=== PATIENT | male | born 1940 | race Caucasian/White ===

== ENCOUNTER 2016-08-04 20:17 | Emergency (ER) | payer MEDICARE, BC ==
[2016-08-04] MEDS ORDERED: HYDROmorphone 1 MG/ML Syringe IM ONE (21:02)
--- NOTE | 2016-08-04 23:09 | EDM.PDOC ---
ED HPI GENERAL MEDICAL PROBLEM - General Chief Complaint: Back Pain or Injury Stated Complaint: BACK PAIN Time Seen by Provider: 08/04/16 20:54 Source of Information: Reports: Patient History Limitations: Reports: No Limitations - History of Present Illness INITIAL COMMENTS - FREE TEXT/NARRATIVE: History of present illness: [68-year-old male presenting with low back pain with pain radiating down the left leg. He has been getting therapy for this but has not been helping. Pain is severe enough that he presents to the ER. The loss of bowel or bladder function. He's had right knee surgery and is very happy with that result. No other complaints.] Review of systems: As per history of present illness and below otherwise all systems reviewed and negative. Past medical history: As per history of present illness and as reviewed below otherwise noncontributory. Surgical history: As per history of present illness and as reviewed below otherwise noncontributory. Social history: No reported history of drug or alcohol abuse. Family history: As per history of present illness and as reviewed below otherwise noncontributory. Physical exam: HEENT: Atraumatic, normocephalic, Lungs: Clear to auscultation, Heart: S1S2, regular, Abdomen: Soft, nondistended, nontender. Pelvis: Stable nontender. Genitourinary: Deferred. Rectal: Deferred. Back: Diffuse active pain in the low lumbar area on palpation Extremities: Atraumatic, negative for cords or calf pain. Neurovascular unremarkable. Neuro: Awake, alert, oriented. Exam nonfocal. 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 left lower back Pain Score (Numeric/FACES): 10 - Related Data Allergies Allergy/AdvReac Type Severity Reaction Status Date / Time cat dander Allergy Shortness Verified 08/04/16 20:38 of Breath dog dander Allergy Shortness Verified 08/04/16 20:38 of Breath house dust Allergy Wheezing Verified 08/04/16 20:38 mold Allergy Wheezing Verified 08/04/16 20:38 Opzpuzy-Qqy-Acd Reductase Allergy Fatigue Verified 08/04/16 20:38 Inhibitor mushroom spores Allergy Wheezing Uncoded 08/04/16 20:38 Home Meds: Home Meds Docosahexanoic Acid [DHA] 500 mg PO BID 11/13/13 [History] Insulin Aspart [NovoLOG] 0 unit SQ TIDAC PRN 11/13/13 [History] Lecithin, Soy [Lecithin] 1,200 mg PO BID 11/13/13 [History] Levothyroxine Sodium [Synthroid] 75 mcg PO DAILY 06/12/14 [History] Lantus 35 units SQ DAILY 10/12/14 [History] Lisinopril 10 mg PO DAILY 10/12/14 [History] Proair Hfa 2 puff INH Q4H PRN 10/12/14 [History] Past Medical History HEENT History: Reports: Hard of Hearing, Impaired Vision, Other (See Below) Other HEENT History: strabismus Cardiovascular History: Reports: Aneurysm, High Cholesterol, Hypertension Other Cardiovascular History: Abnormality of thoracic aorta aortic insufficienty Respiratory History: Reports: Asthma, COPD Gastrointestinal History: Reports: Other (See Below) Other Gastrointestinal History: Cholitis Genitourinary History: Reports: Other (See Below) Other Genitourinary History: urinary frequency Musculoskeletal History: Reports: Osteoarthritis, Other (See Below) Other Musculoskeletal History: spinal stenosis Lumbar polyneuropathy Neurological History: Reports: None Psychiatric History: Reports: None Endocrine/Metabolic History: Reports: Diabetes, Type II, Hyperthyroidism Hematologic History: Reports: None Immunologic History: Reports: None Oncologic (Cancer) History: Reports: Squamous Cell Carcinoma, Other (See Below) Other Oncologic History: Left hand Dermatologic History: Reports: None - Infectious Disease History Infectious Disease History: Reports: Chicken Pox, Measles, Mumps, Rubella, Shingles - Past Surgical History Head Surgeries/Procedures: Reports: None HEENT Surgical History: Reports: Tonsillectomy Respiratory Surgical History: Reports: None GI Surgical History: Reports: Colonoscopy Male Surgical History: Reports: None Neurological Surgical History: Reports: None Musculoskeletal Surgical History: Reports: Arthroscopic Knee, Other (See Below) Oncologic Surgical History: Reports: None Dermatological Surgical History: Reports: None Social & Family History - Family History Family Medical History: Noncontributory - Tobacco Use Smoking Status *Q: Former Smoker Years of Tobacco use: 7 Packs/Tins Daily: 1 Used Tobacco, but Quit: Yes Month Tobacco Last Used: 1962 Tobacco Use Comment: Former smoker Second Hand Smoke Exposure: No - Caffeine Use Caffeine Use: Reports: Coffee - Alcohol Use Days Per Week of Alcohol Use: 5 Number of Drinks Per Day: 1 Total Drinks Per Week: 5 - Recreational Drug Use Recreational Drug Use: No ED ROS GENERAL - Review of Systems Review Of Systems: ROS reveals no pertinent complaints other than HPI. ED EXAM,LOWER BACK PAIN/INJURY - Physical Exam Exam: See Below Course - Vital Signs Last Recorded V/S: Last Vital Signs Temp 36.2 C 08/04/16 20:34 Pulse 66 08/04/16 20:34 Resp 16 08/04/16 20:34 BP 159/56 H 08/04/16 20:34 Pulse Ox 97 08/04/16 20:34 - Orders/Labs/Meds Orders: Active Orders 24 hr Category Date Time Status Lumbar Spine 2 or 3V [CR] Stat Exams 08/04/16 21:01 Taken Lumbar Spine wo Cont [CT] Stat Exams 08/04/16 21:57 Taken Meds: Medications Discontinued Medications Generic Name Dose Route Start Last Admin Trade Name Freq PRN Reason Stop Dose Admin Hydromorphone HCl 0.5 mg 08/04/16 21:02 08/04/16 21:13 Dilaudid IM 08/04/16 21:03 0.5 mg ONETIME ONE Administration Departure - Departure Time of Disposition: 23:07 Disposition: Home, Self-Care 01 Condition: Good Clinical Impression: Low back pain potentially associated with radiculopathy - Discharge Information Forms: ED Department Discharge Additional Instructions: Please follow-up with your primary care doctor in more than likely he will order an MRI to further define her disease process and determine whether or not she would benefit from surgery - My Orders Last 24 Hours: My Active Orders 08/04/16 21:01 Lumbar Spine 2 or 3V [CR] Stat 08/04/16 21:57 Lumbar Spine wo Cont [CT] Stat - Assessment/Plan Last 24 Hours: My Active Orders 08/04/16 21:01 Lumbar Spine 2 or 3V [CR] Stat 08/04/16 21:57 Lumbar Spine wo Cont [CT] Stat
[2016-08-04 23:20] VITALS: BP 160/89
--- NOTE | 2016-08-05 08:56 | CR ---
Lumbar Spine 2 or 3V HISTORY: Low back pain, left lumbar area FINDINGS: Vertebral body alignment is satisfactory. No compression fractures identified. Mild narrow ing of the intervertebral disc space with moderate anterolateral osteophytes is seen at L1-2. There is prominent narrowing of the disc with moderate anterolateral osteophytes at L4-5. Anterior osteoph ytes are also seen at L2-3 and L3-4. There is partial fusion of the vertebral bodies at these 2 leve ls. Scattered facet arthropathy is present. Spinous processes, posterior elements, and pedicles appe ar otherwise intact and in satisfactory alignment. There is partial sacralization of L5 on the left. IMPRESSION: Degenerative and hypertrophic changes lumbar spine. Degenerative changes are most promin ent at L4-5. There is partial fusion of the vertebral bodies at L2-3 and L3-4. No acute abnormality identified. Atherosclerotic aorta is noted.
== END 2016-08-04 23:17 | disposition home or self-care (01) ==
LOC: JP.ED 20:17
DX: M47.26 Other spondylosis with radiculopathy, lumbar region (principal); M54.42 Lumbago with sciatica, left side; E11.9 Type 2 diabetes mellitus without complications; I10 Essential (primary) hypertension; J45.909 Unspecified asthma, uncomplicated; J44.9 Chronic obstructive pulmonary disease, unspecified; M19.90 Unspecified osteoarthritis, unspecified site; E78.00 Pure hypercholesterolemia, unspecified; E05.90 Thyrotoxicosis, unspecified without thyrotoxic crisis or storm; Z85.89 Personal history of malignant neoplasm of other organs and systems; Z79.4 Long term (current) use of insulin; Z79.899 Other long term (current) drug therapy; Z91.09 Other allergy status, other than to drugs and biological substances; Z98.890 Other specified postprocedural states
CPT/HCPCS: 72100; 72131; 96372; 99284; J1170; 99283

== ENCOUNTER 2017-02-18 12:43 | Emergency (ER) | payer MEDICARE, BC ==
[2017-02-18] MEDS ORDERED: Aspirin 81 MG Tab.Chew PO ONE (13:26)
--- NOTE | 2017-02-18 13:31 | EDM.PDOC ---
ED HPI GENERAL MEDICAL PROBLEM - General Chief Complaint: Chest Pain Stated Complaint: CHEST PAIN SHORTNESS OF BREATH Time Seen by Provider: 02/18/17 13:15 Source of Information: Reports: Patient, Family, Old Records, RN Notes Reviewed History Limitations: Reports: No Limitations - History of Present Illness INITIAL COMMENTS - FREE TEXT/NARRATIVE: 77-year-old gentleman presents to the emergency department today with complaint of chest pressure, he has a known history of chronic obstructive pulmonary disease as well as diabetes mellitus type 2 was walking around earlier today approximate 2 hours prior at which time he developed some chest pressure rates it may be 6 out of 10 he had exercised earlier in the day walk a mile and a half with no difficulty it seems like the chest pressure developed after exercise. He reported to the emergency department for further evaluation at this time he is chest pain-free, shortness of breath has resolved, no nausea no diaphoresis Left Chest Pain Score (Numeric/FACES): 5 - Related Data Allergies Allergy/AdvReac Type Severity Reaction Status Date / Time cat dander Allergy Shortness Verified 02/18/17 12:57 of Breath dog dander Allergy Shortness Verified 02/18/17 12:57 of Breath house dust Allergy Wheezing Verified 02/18/17 12:57 mold Allergy Wheezing Verified 02/18/17 12:57 Gpinxgp-Auz-Irs Reductase Allergy Fatigue Verified 02/18/17 12:57 Inhibitor mushroom spores Allergy Wheezing Uncoded 08/04/16 20:38 Home Meds: Home Meds Albuterol Sulfate [Ventolin Hfa] 2 puff INH Q4H PRN 08/12/16 [History] Blood-Glucose Meter [Onetouch Ultramini] 1 strip SQ ASDIRECTED 08/12/16 [History ] Docosahexanoic Acid/EPA [Fish Oil Concentrate Softgel] 500 mg PO BID 08/12/16 [ History] Insulin Aspart [NovoLOG] 1 units SQ TID 08/12/16 [History] Insulin Glarg,Human.Rec.Analog [Lantus Solostar] 25 units SQ DAILY 08/12/16 [ History] Ketorolac [Toradol] 10 mg PO Q6H PRN 08/12/16 [History] Lecithin, Soy [Lecithin] 1 tab PO BID 08/12/16 [History] Levothyroxine [Sythroid] 100 mcg PO DAILY 08/12/16 [History] Past Medical History HEENT History: Reports: Hard of Hearing, Impaired Vision, Other (See Below) Other HEENT History: strabismus Cardiovascular History: Reports: Aneurysm, High Cholesterol, Hypertension Other Cardiovascular History: Abnormality of thoracic aorta aortic insufficienty Respiratory History: Reports: Asthma, COPD Gastrointestinal History: Reports: Other (See Below) Other Gastrointestinal History: Cholitis Genitourinary History: Reports: Other (See Below) Other Genitourinary History: urinary frequency Musculoskeletal History: Reports: Osteoarthritis, Other (See Below) Other Musculoskeletal History: spinal stenosis Lumbar polyneuropathy Endocrine/Metabolic History: Reports: Diabetes, Type II Oncologic (Cancer) History: Reports: Squamous Cell Carcinoma, Other (See Below) Other Oncologic History: Left hand - Infectious Disease History Infectious Disease History: Reports: Chicken Pox, Measles, Mumps, Rubella, Shingles - Past Surgical History HEENT Surgical History: Reports: Tonsillectomy GI Surgical History: Reports: Colonoscopy Musculoskeletal Surgical History: Reports: Arthroscopic Knee Social & Family History - Family History Family Medical History: Noncontributory - Tobacco Use Smoking Status *Q: Never Smoker Years of Tobacco use: 7 Packs/Tins Daily: 1 Used Tobacco, but Quit: Yes Month Tobacco Last Used: 1962 Second Hand Smoke Exposure: No - Caffeine Use Caffeine Use: Reports: Coffee - Alcohol Use Days Per Week of Alcohol Use: 7 Number of Drinks Per Day: 1 Total Drinks Per Week: 7 - Recreational Drug Use Recreational Drug Use: No ED ROS GENERAL - Review of Systems Review Of Systems: See Below Constitutional: Reports: No Symptoms Respiratory: Reports: Shortness of Breath Cardiovascular: Reports: Chest Pain, Dyspnea on Exertion GI/Abdominal: Reports: No Symptoms : Reports: No Symptoms Musculoskeletal: Reports: No Symptoms Skin: Reports: No Symptoms Neurological: Reports: No Symptoms ED EXAM, GENERAL - Physical Exam Exam: See Below Free Text/Narrative:: General: Male, not in any distress, alert and oriented x3 HEENT: head is atraumatic normocephalic, eyes pupils equal round reactive to light, sclera clear no conjunctivitis appreciated. Ears tympanic membranes clear and angulo landmarks and light reflex are present bilaterally canals are clear. Nose no septal deviation, nares are clear, no blood present. Mouth mucosa is moist and pink no erythema or exudate noted in soft palate, tongue is midline uvula is midline, dentures in place. Neck: Supple no thyromegaly no tracheal deviation. Nodes: Cervical nodes subclavicular nodes nontender no palpable lymphadenopathy noted. Lungs: clear to auscultation bilaterally with symmetrical respirations, no adventitious noise appreciated. CV: Regular rate and rhythm S1 and S2 appreciated no murmurs rubs or gallops noted. Abdomen: Soft, nontender, no palpable masses or organomegaly appreciated, no distention no guarding bowel sounds are present, . Neuro: Cranial nerves II through XII grossly intact Skin: Warm and dry, intact Extremities: No lower extremity edema appreciated, Course - Vital Signs Last Recorded V/S: Last Vital Signs Temp 97.0 F 02/18/17 12:54 Pulse 64 02/18/17 12:54 Resp 12 02/18/17 12:54 BP 177/75 H 02/18/17 12:54 Pulse Ox 96 02/18/17 12:54 - Orders/Labs/Meds Orders: Active Orders 24 hr Category Date Time Status Cardiac Monitoring [RC] .As Directed Care 02/18/17 13:26 Active EKG Documentation Completion [RC] ASDIRECTED Care 02/18/17 13:27 Active EKG 12 Lead [EK] Stat Ther 02/18/17 13:27 Ordered Labs: Laboratory Tests 02/18/17 02/18/17 Range/Units 13:37 13:37 WBC 5.7 (4.5-11.0) K/uL RBC 4.67 (4.30-5.90) M/uL Hgb 13.5 (12.0-15.0) g/dL Hct 39.9 L (40.0-54.0) % MCV 85 (80-98) fL MCH 29 (27-31) pg MCHC 34 (32-36) % Plt Count 212 (150-400) K/uL Neut % (Auto) 65 (36-66) % Lymph % (Auto) 22 L (24-44) % [place] % (Auto) 10 H (2-6) % Eos % (Auto) 3 (2-4) % Baso % (Auto) 1 (0-1) % Sodium 138 L (140-148) mmol/L Potassium 4.5 (3.6-5.2) mmol/L Chloride 102 (100-108) mmol/L Carbon Dioxide 28 (21-32) mmol/L Anion Gap 12.5 (5.0-14.0) mmol/L BUN 20 H (7-18) mg/dL Creatinine 1.1 (0.8-1.3) mg/dL Est Cr Clr Drug Dosing 56.22 mL/min Estimated GFR (MDRD) > 60 (>60) Glucose 307 H (74-106) mg/dL Calcium 8.5 (8.5-10.1) mg/dL Total Bilirubin 0.7 (0.2-1.0) mg/dL AST 22 (15-37) U/L ALT 28 (12-78) U/L Alkaline Phosphatase 76 (46-116) U/L Creatine Kinase 179 (39-308) U/L Troponin I < 0.017 (0.000-0.056) ng/mL Total Protein 5.9 L (6.4-8.2) g/dL Albumin 3.5 (3.4-5.0) g/dL Globulin 2.4 (2.3-3.5) g/dL Albumin/Globulin Ratio 1.5 (1.2-2.2) Meds: Medications Discontinued Medications Generic Name Dose Route Start Last Admin Trade Name Freq PRN Reason Stop Dose Admin Aspirin 324 mg 02/18/17 13:26 02/18/17 13:36 Aspirin PO 02/18/17 13:27 324 mg ONETIME ONE Administration Departure - Departure Time of Disposition: 14:27 Disposition: Home, Self-Care 01 Condition: Good Clinical Impression: Atypical chest pain Referrals: Edil Buckley PA-C [Primary Care Provider] - Forms: ED Department Discharge Additional Instructions: Continue your regular medications keep your follow-up appointments with your primary care provider, call return to the emergency department with worsening of symptoms - My Orders Last 24 Hours: My Active Orders 02/18/17 13:26 Cardiac Monitoring [RC] .As Directed 02/18/17 13:27 EKG Documentation Completion [RC] ASDIRECTED EKG 12 Lead [EK] Stat - Assessment/Plan Last 24 Hours: My Active Orders 02/18/17 13:26 Cardiac Monitoring [RC] .As Directed 02/18/17 13:27 EKG Documentation Completion [RC] ASDIRECTED EKG 12 Lead [EK] Stat Plan: Assessment Acuity = acute Site and laterality = atypical chest pain Etiology = unclear etiology Manifestations = none Location of injury = Home Lab values = CBC, CMP, troponin all within normal limits glucose is elevated at 307 consistent with the hyperglycemia EKG demonstrates poor R-wave progression with an incomplete right bundle branch block this is similar to the EKG in 08-21, chest x-ray shows no acute process Plan I did review lab work with him as well as EKG and chest x-ray results we talked about hospital admission for further evaluation he declined plan is to go home will return to the emergency department with any development of new symptoms keep his regular appointment with his primary care This note was dictated using [employer] voice recognition software please call with any questions on syntax or waldo.
--- NOTE | 2017-02-18 13:53 | CR ---
Chest 1V Frontal INDICATION: Chest Pain COMPARISON: None FINDINGS: AP portable chest. Heart size normal. No infiltrates or pleural effusions. No signs of pulmonary edema. Prominent cardia c fat pad left base similar to prior studies. IMPRESSION: Nothing acute.
[2017-02-18 15:11] VITALS: BP 116/94
== END 2017-02-18 15:11 | disposition home or self-care (01) ==
LOC: JP.ED 12:43
DX: R07.89 Other chest pain (principal); I10 Essential (primary) hypertension; E78.00 Pure hypercholesterolemia, unspecified; E11.9 Type 2 diabetes mellitus without complications; J44.9 Chronic obstructive pulmonary disease, unspecified; Z87.891 Personal history of nicotine dependence; Z79.4 Long term (current) use of insulin; Z79.899 Other long term (current) drug therapy; Z88.8 Allergy status to other drugs, medicaments and biological substances; Z91.048 Other nonmedicinal substance allergy status
CPT/HCPCS: 36415; 71045; 80053; 82550; 84484; 85025; 93005; 99285; A9270; 93010; 99283

== ENCOUNTER 2017-03-29 16:03 | Emergency (ER) | payer MEDICARE, BC ==
[2017-03-29 16:11] VITALS: BP 161/70
--- NOTE | 2017-03-29 16:48 | EDM.PDOC ---
ED HPI GENERAL MEDICAL PROBLEM - General Chief Complaint: Diabetic Complaint Stated Complaint: illness Time Seen by Provider: 03/29/17 16:25 Source of Information: Reports: Patient, EMS, Family History Limitations: Reports: No Limitations - History of Present Illness INITIAL COMMENTS - FREE TEXT/NARRATIVE: 77-year-old male brought in by EMS after experiencing a hypoglycemic episode. He was found to have a blood glucose of 42, given IV glucose and transported in for evaluation. His mental status returned to baseline by the time he got to the hospital, a recheck on arrival by EMS was 82. He denies any nausea vomiting , shortness of breath over his baseline. No other illness. He took 15 units of Humalog at 11:30 instead of his usual 12 units because his blood sugar was near 400. Onset: Sudden Severity: Moderate - Related Data Allergies Allergy/AdvReac Type Severity Reaction Status Date / Time cat dander Allergy Shortness Verified 03/29/17 16:09 of Breath dog dander Allergy Shortness Verified 03/29/17 16:09 of Breath house dust Allergy Wheezing Verified 03/29/17 16:09 mold Allergy Wheezing Verified 03/29/17 16:09 Auxfvxj-Kdt-Moh Reductase Allergy Fatigue Verified 03/29/17 16:09 Inhibitor mushroom spores Allergy Wheezing Uncoded 08/04/16 20:38 Home Meds: Home Meds Albuterol Sulfate [Ventolin Hfa] 2 puff INH Q4H PRN 08/12/16 [History] Blood-Glucose Meter [Onetouch Ultramini] 1 strip SQ ASDIRECTED 08/12/16 [History ] Docosahexanoic Acid/EPA [Fish Oil Concentrate Softgel] 500 mg PO BID 08/12/16 [ History] Insulin Aspart [NovoLOG] 1 units SQ TID 08/12/16 [History] Insulin Glarg,Human.Rec.Analog [Lantus Solostar] 30 units SQ DAILY 08/12/16 [ History] Lecithin, Soy [Lecithin] 1 tab PO BID 08/12/16 [History] Levothyroxine [Sythroid] 100 mcg PO DAILY 08/12/16 [History] Past Medical History HEENT History: Reports: Hard of Hearing, Impaired Vision, Other (See Below) Other HEENT History: strabismus Cardiovascular History: Reports: Aneurysm, High Cholesterol, Hypertension Other Cardiovascular History: Abnormality of thoracic aorta aortic insufficienty Respiratory History: Reports: Asthma, COPD Gastrointestinal History: Reports: Other (See Below) Other Gastrointestinal History: Cholitis Genitourinary History: Reports: Other (See Below) Other Genitourinary History: urinary frequency Musculoskeletal History: Reports: Osteoarthritis, Other (See Below) Other Musculoskeletal History: spinal stenosis Lumbar polyneuropathy Endocrine/Metabolic History: Reports: Diabetes, Type II Other Endocrine/Metabolic History: insulin dependent Oncologic (Cancer) History: Reports: Squamous Cell Carcinoma, Other (See Below) Other Oncologic History: Left hand - Infectious Disease History Infectious Disease History: Reports: Chicken Pox, Measles, Mumps, Rubella, Shingles - Past Surgical History HEENT Surgical History: Reports: Tonsillectomy GI Surgical History: Reports: Colonoscopy Musculoskeletal Surgical History: Reports: Arthroscopic Knee Social & Family History - Family History Family Medical History: Noncontributory - Tobacco Use Smoking Status *Q: Never Smoker Years of Tobacco use: 7 Packs/Tins Daily: 1 Used Tobacco, but Quit: Yes Month Tobacco Last Used: 1962 Second Hand Smoke Exposure: No - Caffeine Use Caffeine Use: Reports: Coffee - Alcohol Use Days Per Week of Alcohol Use: 7 Number of Drinks Per Day: 1 Total Drinks Per Week: 7 - Recreational Drug Use Recreational Drug Use: No ED ROS GENERAL - Review of Systems Review Of Systems: See Below Constitutional: Denies: Fever, Chills Respiratory: Reports: Shortness of Breath (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) Cardiovascular: Denies: Chest Pain GI/Abdominal: Denies: Nausea, Vomiting Skin: Reports: Diaphoresis Neurological: Reports: Syncope, Weakness Psychiatric: Reports: No Symptoms ED EXAM GENERAL NO PERIP PULSE - Physical Exam Exam: See Below Exam Limited By: No Limitations General Appearance: Alert, No Apparent Distress Eye Exam: Bilateral Eye: EOMI Head: Atraumatic Respiratory/Chest: No Respiratory Distress, Lungs Clear Cardiovascular: Regular Rate, Rhythm Extremities: No: Pedal Edema Neurological: Alert, Oriented, No Motor/Sensory Deficits Psychiatric: Normal Affect, Normal Mood Skin Exam: Warm, Dry Course - Vital Signs Last Recorded V/S: Last Vital Signs Temp 93.4 F L 03/29/17 16:12 Pulse 60 03/29/17 16:12 Resp 18 03/29/17 16:12 BP 161/70 H 03/29/17 16:12 Pulse Ox 99 03/29/17 16:12 - Re-Assessments/Exams Free Text/Narrative Re-Assessment/Exam: 03/29/17 16:48 After observing the patient for an hour, a repeat glucose was obtained and was 84. 03/29/17 16:50 Patient was comfortable with this level, has glucose supplements if needed and is going to resume his regular insulin schedule. Departure - Departure Time of Disposition: 17:16 Disposition: Home, Self-Care 01 Condition: Good Clinical Impression: Hypoglycemia - Discharge Information Instructions: Hypoglycemia Referrals: PCP,None [Primary Care Provider] - Forms: ED Department Discharge Care Plan Goals: Resume your regular insulin regimen and take extra glucose if you feel hypoglycemic.
== END 2017-03-29 17:17 | disposition home or self-care (01) ==
LOC: JP.ED 16:03
DX: E11.649 Type 2 diabetes mellitus with hypoglycemia without coma (principal); I10 Essential (primary) hypertension; E78.00 Pure hypercholesterolemia, unspecified; Z91.048 Other nonmedicinal substance allergy status; Z88.8 Allergy status to other drugs, medicaments and biological substances; Z91.018 Allergy to other foods; Z79.4 Long term (current) use of insulin
CPT/HCPCS: 82962; 99284

== ENCOUNTER 2017-11-12 16:58 | Emergency (ER) | payer MEDICARE, BC ==
[2017-11-12] MEDS ORDERED: Aspirin 81 MG Tab.Chew PO ONE (17:40)
[2017-11-12] MEDS ORDERED: Heparin Sodium 5,000 Units/ML Vial IVPUSH ONE (18:21)
[2017-11-12] MEDS ORDERED: Heparin Sodium/D5W 25,000 UNITS/500 ML BAG IV SCH (18:30)
--- NOTE | 2017-11-12 18:34 | EDM.PDOC ---
ED HPI GENERAL MEDICAL PROBLEM - General Chief Complaint: Chest Pain Stated Complaint: BREATHING/ CHEST PAIN/ DIZZY Time Seen by Provider: 11/12/17 17:10 Source of Information: Reports: Patient, Family History Limitations: Reports: Other (dementia) - History of Present Illness INITIAL COMMENTS - FREE TEXT/NARRATIVE: 77-year-old gentleman presents with concerns of chest pain. History is limited due to dementia. He reports that approximately 2 hours prior to arrival he experienced substernal chest pressure while picking apples. It was moderate in intensity. He had associated tingling in his arms. The pain lasted nearly 2 hours, abated shortly before arrival in the ED and his car. He had associated dyspnea which is resolving. The pain is now resolved. He has no pleuritic discomfort or cough. No abdominal pain, no black or bloody stools. No lower extremity swelling or pain. He reports an history of an aortic abnormality, he thinks it's an aneurysm in his thorax. He has a history of insulin-dependent diabetes which is poorly controlled due to insulin noncompliance as well as hypertension for which he does not take his medication. He has no known history of coronary artery disease. There is a question of some history of CHF. No blood thinners or aspirin. - Related Data Allergies Allergy/AdvReac Type Severity Reaction Status Date / Time cat dander Allergy Shortness Verified 08/06/17 06:10 of Breath dog dander Allergy Shortness Verified 08/06/17 06:10 of Breath house dust Allergy Wheezing Verified 08/06/17 06:10 mold Allergy Wheezing Verified 08/06/17 06:10 Wcawepp-Cvx-Fzx Reductase Allergy Fatigue Verified 08/06/17 06:10 Inhibitor mushroom spores Allergy Wheezing Uncoded 04/14/17 08:37 Home Meds: Home Meds Albuterol Sulfate [Ventolin Hfa] 2 puff INH Q4H PRN 08/12/16 [History] Blood-Glucose Meter [Onetouch Ultramini] 1 strip SQ ASDIRECTED 08/12/16 [History ] Docosahexanoic Acid/EPA [Fish Oil Concentrate Softgel] 500 mg PO BID 08/12/16 [ History] Insulin Aspart [NovoLOG] 10 units SQ TID 08/12/16 [History] Insulin Glarg,Human.Rec.Analog [Lantus Solostar] 30 units SQ ACBREAKFAST [History] Lecithin, Soy [Lecithin] 1 tab PO BID 08/12/16 [History] Aspirin [Adult Low Dose Aspirin EC] 81 mg PO DAILY 04/13/17 [History] Levothyroxine 112 mcg PO DAILY 04/13/17 [History] Lisinopril 10 mg PO DAILY 04/13/17 [History] Tiotropium [Spiriva Handihaler] 1 puff INH DAILY 04/13/17 [History] Past Medical History HEENT History: Reports: Hard of Hearing, Impaired Vision, Other (See Below) Other HEENT History: strabismus Cardiovascular History: Reports: Aneurysm, High Cholesterol, Hypertension Other Cardiovascular History: Abnormality of thoracic aorta aortic insufficienty Respiratory History: Reports: Asthma, COPD Gastrointestinal History: Reports: Other (See Below) Other Gastrointestinal History: Cholitis Genitourinary History: Reports: Other (See Below) Other Genitourinary History: urinary frequency Musculoskeletal History: Reports: Osteoarthritis, Other (See Below) Other Musculoskeletal History: spinal stenosis Lumbar polyneuropathy Endocrine/Metabolic History: Reports: Diabetes, Type II Other Endocrine/Metabolic History: insulin dependent Oncologic (Cancer) History: Reports: Squamous Cell Carcinoma, Other (See Below) Other Oncologic History: Left hand - Infectious Disease History Infectious Disease History: Reports: Chicken Pox - Past Surgical History Head Surgeries/Procedures: Reports: None HEENT Surgical History: Reports: Tonsillectomy GI Surgical History: Reports: Colonoscopy Musculoskeletal Surgical History: Reports: Arthroscopic Knee Social & Family History - Family History Family Medical History: Noncontributory - Tobacco Use Smoking Status *Q: Former Smoker Used Tobacco, but Quit: Yes Month/Year Tobacco Last Used: 1959 Second Hand Smoke Exposure: No - Caffeine Use Caffeine Use: Reports: None - Recreational Drug Use Recreational Drug Use: No ED ROS GENERAL - Review of Systems Review Of Systems: See Below Constitutional: Reports: No Symptoms. Denies: Fever, Chills HEENT: Reports: No Symptoms Respiratory: Reports: Shortness of Breath. Denies: Pleuritic Chest Pain Cardiovascular: Reports: Chest Pain, Blood Pressure Problem Endocrine: Reports: No Symptoms GI/Abdominal: Denies: Abdominal Pain, Black Stool, Bloody Stool : Reports: No Symptoms. Denies: Dysuria, Flank Pain Musculoskeletal: Reports: No Symptoms Skin: Denies: Rash Neurological: Reports: No Symptoms. Denies: Dizziness, Headache, Numbness Psychiatric: Reports: No Symptoms Hematologic/Lymphatic: Reports: No Symptoms Immunologic: Reports: No Symptoms ED EXAM, GENERAL - Physical Exam Exam: See Below Exam Limited By: No Limitations General Appearance: Alert, No Apparent Distress Ears: Normal External Exam Nose: Normal Inspection, Normal Mucosa Throat/Mouth: Normal Inspection Head: Atraumatic, Normocephalic Neck: Normal Inspection Respiratory/Chest: Lungs Clear, Normal Breath Sounds. No: No Respiratory Distress Cardiovascular: Tachycardia. No: No Murmur GI/Abdominal: Soft, Non-Tender Back Exam: Normal Inspection Extremities: Normal Inspection, No Pedal Edema Neurological: Alert, Oriented, CN II-XII Intact, No Motor/Sensory Deficits Psychiatric: Normal Affect Skin Exam: Warm, Dry EKG INTERPRETATION EKG Date: 11/12/17 Rhythm: Other (sinus tachycardia) QRS: Normal ST-T: Depressed (inferior and lateral depression, new from prior) QT: Normal Comparison: Change From Previous EKG Course - Vital Signs Last Recorded V/S: Last Vital Signs Temp 35.9 C 11/12/17 17:41 Pulse 122 H 11/12/17 18:12 Resp 14 11/12/17 18:12 BP 137/86 11/12/17 18:12 Pulse Ox 97 11/12/17 18:12 - Orders/Labs/Meds Orders: Active Orders 24 hr Category Date Time Status EKG Documentation Completion [RC] ASDIRECTED Care 11/12/17 17:55 Active Ang Chest [CT] Stat Exams 11/12/17 17:38 Taken Heparin Sodium/D5W [Heparin 25,000 Units in D5W 500 ML] Med 11/12/17 18:30 Active 25,000 units in 500 ml IV TITRATE Iopamidol [Isovue-370 (76%)] Med 11/12/17 18:45 Active 79 ml IV . DIRECTED Sodium Chloride 0.9% [Normal Saline] 90 ml Med 11/12/17 18:45 Active IV ASDIRECTED EKG 12 Lead [EK] Routine Ther 11/12/17 17:54 Ordered Medication Orders Heparin Sodium/Dextrose (Heparin 25,000 Units In D5w 500 Ml) 25,000 units in 500 mls @ 20 mls/hr IV TITRATE MEEK; Protocol Last Admin: 11/12/17 18:51 Dose: 1,000 units/hr, 20 mls/hr Sodium Chloride (Normal Saline) 90 mls @ 4 mls/sec IV ASDIRECTED MEEK Last Admin: 11/12/17 18:56 Dose: 4 mls/sec Iopamidol (Isovue-370 (76%)) 79 ml IV . DIRECTED MEEK Last Admin: 11/12/17 18:56 Dose: 100 ml Labs: Laboratory Tests 11/12/17 11/12/17 11/12/17 Range/Units 17:15 17:15 17:55 WBC 5.1 (4.5-11.0) K/uL RBC 5.01 (4.30-5.90) M/uL Hgb 14.8 (12.0-15.0) g/dL Hct 42.7 (40.0-54.0) % MCV 85 (80-98) fL MCH 30 (27-31) pg MCHC 35 (32-36) % Plt Count 243 (150-400) K/uL Sodium 137 L (140-148) mmol/L Potassium 4.2 (3.6-5.2) mmol/L Chloride 101 (100-108) mmol/L Carbon Dioxide 24 (21-32) mmol/L Anion Gap 16.2 H (5.0-14.0) mmol/L BUN 12 (7-18) mg/dL Creatinine 1.1 (0.8-1.3) mg/dL Est Cr Clr Drug Dosing TNP Estimated GFR (MDRD) > 60 (>60) Glucose 206 H (74-106) mg/dL Calcium 8.9 (8.5-10.1) mg/dL Total Bilirubin 0.5 (0.2-1.0) mg/dL AST 26 (15-37) U/L ALT 31 (12-78) U/L Alkaline Phosphatase 82 (46-116) U/L Troponin I 0.037 (0.000-0.056) ng/mL NT-Pro-B Natriuret Pep 237 (5-450) pg/mL Total Protein 7.0 (6.4-8.2) g/dL Albumin 4.1 (3.4-5.0) g/dL Globulin 2.9 (2.3-3.5) g/dL Albumin/Globulin Ratio 1.4 (1.2-2.2) Meds: Medications Generic Name Dose Route Start Last Admin Trade Name Frebahman PRN Reason Stop Dose Admin Heparin Sodium/Dextrose 25,000 units in 500 mls @ 20 mls/hr 11/12/17 18:30 18:51 Heparin 25,000 Units In D5w 500 Ml IV 1,000 units/hr TITRATE MEEK 20 mls/hr Administration Protocol 1,000 UNITS/HR Sodium Chloride 90 mls @ 4 mls/sec 11/12/17 18:45 11/12/17 18:56 Normal Saline IV 4 mls/sec ASDIRECTED MEEK Administration Iopamidol 79 ml 11/12/17 18:45 11/12/17 18:56 Isovue-370 (76%) IV 100 ml . DIRECTED MEEK Administration Discontinued Medications Generic Name Dose Route Start Last Admin Trade Name Stacy PRN Reason Stop Dose Admin Aspirin 324 mg 11/12/17 17:40 11/12/17 17:59 Aspirin PO 11/12/17 17:41 324 mg ONETIME ONE Administration Clopidogrel Bisulfate 300 mg 11/12/17 19:07 Plavix PO 11/12/17 19:08 ONETIME ONE Heparin Sodium (Porcine) 4,000 units 11/12/17 18:21 11/12/17 18:43 Heparin Sodium IVPUSH 11/12/17 18:22 4,000 units .BOLUS ONE Administration Metoprolol Tartrate 2.5 mg 11/12/17 19:08 Lopressor IVPUSH 11/12/17 19:09 ONETIME ONE Sodium Chloride 10 ml 11/12/17 18:43 11/12/17 18:56 Saline Flush FLUSH 11/12/17 18:44 10 ml ONETIME ONE Administration - Re-Assessments/Exams Free Text/Narrative Re-Assessment/Exam: 77-year-old male with history as outline presents with substernal chest pain. Resolved prior to arrival in the emergency department. On initial evaluation in the ED he is noted to be quite tachycardic, initially hypertensive but this has resolved. His EKG shows inferior and lateral ST depressions. Initial labs significant for elevated troponin. Findings and story concerning for an NSTEMI However given his history of aortic pathology, performing a CT angiogram to evaluate for dissection or large PE. Heparin has been ordered. ASA administered. Remains CP free. Anticipate transfer to [facility] feedback if CT unremarkable 11/12/17 18:37 Free Text/Narrative Re-Assessment/Exam: CTA without PE, aortic root dilatation appears grossly stable from ECHO one year ago Discussed with [facility] feedback in [place], accepted in transfer for further NSTEMI care Administering 2.5 mg of metoprolol and 300 mg of plavix per accepting [facility] feedback request in addition to heparin bolus and infusion 11/12/17 19:15 Departure - Departure Time of Disposition: 19:17 Disposition: DC/Tfer to Acute Hospital 02 Reason for Transfer *Q: Primary PCI Indicated Condition: Fair Clinical Impression: NSTEMI (non-ST elevated myocardial infarction) Referrals: PCP,None [Primary Care Provider] - Forms: ED Department Discharge Critical Care Note - Critical Care Note Total Time (mins): 32 Comments: Total 32 minutes of critical care time addressing unstable vitals, cardiac ischemia, coordination of imaging for possible aortic pathology, and counseling patient/family. - My Orders Last 24 Hours: My Active Orders 11/12/17 17:38 Ang Chest [CT] Stat 11/12/17 17:54 EKG 12 Lead [EK] Routine 11/12/17 17:55 EKG Documentation Completion [RC] ASDIRECTED 11/12/17 18:30 Heparin Sodium/D5W [Heparin 25,000 Units in D5W 500 ML] 25,000 units in 500 ml IV TITRATE 11/12/17 18:45 Iopamidol [Isovue-370 (76%)] 79 ml IV . DIRECTED Sodium Chloride 0.9% [Normal Saline] 90 ml IV ASDIRECTED - Assessment/Plan Last 24 Hours: My Active Orders 11/12/17 17:38 Ang Chest [CT] Stat 11/12/17 17:54 EKG 12 Lead [EK] Routine 11/12/17 17:55 EKG Documentation Completion [RC] ASDIRECTED 11/12/17 18:30 Heparin Sodium/D5W [Heparin 25,000 Units in D5W 500 ML] 25,000 units in 500 ml IV TITRATE 11/12/17 18:45 Iopamidol [Isovue-370 (76%)] 79 ml IV . DIRECTED Sodium Chloride 0.9% [Normal Saline] 90 ml IV ASDIRECTED
[2017-11-12] MEDS ORDERED: Sodium Chloride 0.9% 90 ML IV SCH (18:45)
[2017-11-12] MEDS ORDERED: Iopamidol 755 Mg/ML 100 ML Bottle IV SCH (18:45)
[2017-11-12] MEDS: Sodium Chloride 0.9% 10 ML Syringe FLUSH ONE ×2 (18:47→18:56)
[2017-11-12] MEDS ORDERED: Clopidogrel 75 MG Tab PO ONE (19:07)
[2017-11-12] MEDS ORDERED: Metoprolol Tartrate 5 MG/5 ML SDV IVPUSH ONE (19:08)
[2017-11-12 19:27] VITALS: BP 124/89
== END 2017-11-12 20:10 ==
LOC: JP.ED 16:58
DX: I21.4 Non-ST elevation (NSTEMI) myocardial infarction (principal); I10 Essential (primary) hypertension; E78.00 Pure hypercholesterolemia, unspecified; E11.9 Type 2 diabetes mellitus without complications; Z79.899 Other long term (current) drug therapy; Z87.891 Personal history of nicotine dependence; Z79.4 Long term (current) use of insulin; Z91.018 Allergy to other foods; Z88.8 Allergy status to other drugs, medicaments and biological substances; Z91.09 Other allergy status, other than to drugs and biological substances
CPT/HCPCS: 36415; 71275; 80053; 83880; 84484; 85027; 93005; 96375; 99285; A9270; J1644; J3490; J7030; J7050; Q9967; 93010; 96365; 99291

== ENCOUNTER 2018-02-26 04:07 | Emergency (ER) | payer BC, MEDICARE ==
[2018-02-26 04:35] VITALS: BP 117/77
--- NOTE | 2018-02-26 04:44 | EDM.PDOC ---
ED HPI GENERAL MEDICAL PROBLEM - General Chief Complaint: Diabetic Complaint Stated Complaint: FELL,UNCONSCIOUS Time Seen by Provider: 02/26/18 04:15 Source of Information: Reports: Patient, EMS History Limitations: Reports: No Limitations - History of Present Illness INITIAL COMMENTS - FREE TEXT/NARRATIVE: 78-year-old male had a hypoglycemic episode at home falling and striking his face on a piece of furniture. He has a transverse laceration on the lower lip and a contusion on the inside of the lip. His glucose measured 20 at home, EMS gave him IV glucose and it was 120 on arrival to the emergency room, his mental status was back to baseline. No other injury. Onset: Sudden Location: Reports: Face Associated Symptoms: Reports: Other (Hypoglycemia) Treatments COMPLAINT COORDINATOR: Reports: Other (see below) Other Treatments COMPLAINT COORDINATOR: D10 denies pain Pain Score (Numeric/FACES): 0 - Related Data Allergies Allergy/AdvReac Type Severity Reaction Status Date / Time Tmpxrzm-Ejp-Oea Reductase Allergy Mild Fatigue Verified 02/26/18 04:25 Inhibitor cat dander Allergy Shortness Verified 02/26/18 04:25 of Breath dog dander Allergy Shortness Verified 02/26/18 04:25 of Breath house dust Allergy Wheezing Verified 02/26/18 04:25 insulin detemir Allergy Shortness Verified 02/26/18 04:25 [From Levemir U-100 Insulin] of Breath mold Allergy Wheezing Verified 02/26/18 04:25 mushroom spores Allergy Wheezing Uncoded 02/26/18 04:25 Home Meds: Home Meds Albuterol Sulfate [Ventolin Hfa] 2 puff INH Q4H PRN 08/12/16 [History] Blood-Glucose Meter [Onetouch Ultramini] 1 strip SQ ASDIRECTED 08/12/16 [History ] Insulin Aspart [NovoLOG] 1 dose SQ TID 08/12/16 [History] Aspirin [Adult Low Dose Aspirin EC] 81 mg PO DAILY 04/13/17 [History] Levothyroxine 112 mcg PO DAILY 04/13/17 [History] Amiodarone [Cordarone] 200 mg PO DAILY 02/16/18 [History] Docusate Sodium [Dss] 250 mg PO DAILY 02/16/18 [History] Furosemide 20 mg PO DAILY 02/16/18 [History] Metoprolol Tartrate 25 mg PO BID 02/16/18 [History] Omeprazole 20 mg PO DAILY 02/16/18 [History] Rivaroxaban [Xarelto] 15 mg PO DAILY 02/16/18 [History] atorvaSTATin Calcium [Atorvastatin Calcium] 10 mg PO BEDTIME 02/16/18 [History] Past Medical History HEENT History: Reports: Cataract, Hard of Hearing, Impaired Vision, Other (See Below) Other HEENT History: strabismus Cardiovascular History: Reports: Afib, Aneurysm, Bypass, CAD, Heart Murmur, High Cholesterol, Hypertension, MD, SOB on Exertion Other Cardiovascular History: Abnormality of thoracic aorta aortic insufficienty Respiratory History: Reports: Asthma, COPD Gastrointestinal History: Reports: Other (See Below) Other Gastrointestinal History: Cholitis Genitourinary History: Reports: Other (See Below) Other Genitourinary History: urinary frequency Musculoskeletal History: Reports: Arthritis, Osteoarthritis, Other (See Below) Other Musculoskeletal History: spinal stenosis Lumbar polyneuropathy Endocrine/Metabolic History: Reports: Diabetes, Type II Other Endocrine/Metabolic History: insulin dependent Hematologic History: Reports: Anticoagulation Therapy Oncologic (Cancer) History: Reports: Squamous Cell Carcinoma, Other (See Below) Other Oncologic History: Left hand - Infectious Disease History Infectious Disease History: Reports: Chicken Pox, Measles, Mumps - Past Surgical History Head Surgeries/Procedures: Reports: None HEENT Surgical History: Reports: Tonsillectomy Cardiovascular Surgical History: Reports: Coronary Artery Bypass, Coronary Artery Stent GI Surgical History: Reports: Colonoscopy Musculoskeletal Surgical History: Reports: Arthroscopic Knee, Knee Replacement Social & Family History - Family History Family Medical History: Noncontributory - Tobacco Use Smoking Status *Q: Never Smoker - Caffeine Use Caffeine Use: Reports: Coffee - Recreational Drug Use Recreational Drug Use: No ED ROS GENERAL - Review of Systems Review Of Systems: See Below Constitutional: Denies: Fever, Chills Respiratory: Denies: Shortness of Breath GI/Abdominal: Denies: Nausea, Vomiting Skin: Reports: Bruising (Facial bruising) ED EXAM GENERAL NO PERIP PULSE - Physical Exam Exam: See Below Exam Limited By: No Limitations General Appearance: Alert, No Apparent Distress Eye Exam: Bilateral Eye: EOMI Throat/Mouth: Other (Lower lip is swollen, there is ecchymosis on the inner aspect of the lip and on the external lip there is a 2.5 cm transverse laceration just along the vermilion border.) Neck: Supple Respiratory/Chest: No Respiratory Distress Cardiovascular: Regular Rate, Rhythm Neurological: Alert, Oriented Psychiatric: Normal Affect, Normal Mood Course - Vital Signs Last Recorded V/S: Last Vital Signs Temp 96.0 F 02/26/18 04:31 Pulse 70 02/26/18 04:31 Resp 15 02/26/18 04:31 BP 117/77 02/26/18 04:31 Pulse Ox 100 02/26/18 04:31 - Orders/Labs/Meds Labs: Laboratory Tests 02/26/18 Range/Units 04:20 Sodium 140 (140-148) mmol/L Potassium 4.0 (3.6-5.2) mmol/L Chloride 103 (100-108) mmol/L Carbon Dioxide 29 (21-32) mmol/L Anion Gap 8.0 (5.0-14.0) mmol/L BUN 20 H (7-18) mg/dL Creatinine 1.3 (0.8-1.3) mg/dL Est Cr Clr Drug Dosing TNP Estimated GFR (MDRD) 53 L (>60) Glucose 66 L (74-106) mg/dL Calcium 8.9 (8.5-10.1) mg/dL Meds: Medications Discontinued Medications Generic Name Dose Route Start Last Admin Trade Name Freq PRN Reason Stop Dose Admin Lidocaine HCl 5 ml 02/26/18 04:40 02/26/18 04:47 Xylocaine-Mpf 1% INJECT 02/26/18 04:41 5 ml ONETIME ONE Administration - Re-Assessments/Exams Free Text/Narrative Re-Assessment/Exam: 02/26/18 04:43 1% lidocaine was ordered for anesthesia. Local anesthesia was applied to the lip. 02/26/18 05:08 BMP was drawn which revealed a glucose of 66 so the dextrose IV was continued. Patient remained alert. 4 6-0 Vicryl sutures were used to close the lip laceration. Departure - Departure Time of Disposition: 06:20 Disposition: Home, Self-Care 01 Condition: Good Clinical Impression: Hypoglycemia Laceration of lip Qualifiers: Encounter type: initial encounter Qualified Code(s): S01.511A - Laceration without foreign body of lip, initial encounter - Discharge Information Instructions: Laceration Care, Adult, [id number] Referrals: PCP,None [Primary Care Provider] - Forms: ED Department Discharge Care Plan Goals: Cool compresses to the lip will help with swelling over the next 1-2 days. Dab the lip lightly for bleeding. Soft foods for the next 24-48 hours may be beneficial. Return at any time if concerns of infection or not healing satisfactorily.
== END 2018-02-26 06:00 | disposition home or self-care (01) ==
LOC: JP.ED 04:07
DX: S01.511A Laceration without foreign body of lip, initial encounter (principal); E11.649 Type 2 diabetes mellitus with hypoglycemia without coma; J44.9 Chronic obstructive pulmonary disease, unspecified; Z88.8 Allergy status to other drugs, medicaments and biological substances; Z91.018 Allergy to other foods; Z79.899 Other long term (current) drug therapy
CPT/HCPCS: 12011; 36415; 80048; 99284-25

== ENCOUNTER 2018-10-04 10:21 | Emergency (ER) | payer MEDICARE, BC ==
[2018-10-04] MEDS ORDERED: Aspirin 81 MG Tab.Chew PO ONE (11:02)
--- NOTE | 2018-10-04 11:06 | EDM.PDOC ---
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 At approximately 2 AM sudden onset of pain across his back nausea vomiting short of breath and diaphoresis. However at this time all of the symptoms have cleared and he feels he is back to normal - Related Data Allergies Allergy/AdvReac Type Severity Reaction Status Date / Time [id number]-Srl Reductase Allergy Mild Fatigue Verified 02/26/18 04:25 Inhibitor cat dander Allergy Shortness Verified 02/26/18 04:25 of Breath dog dander Allergy Shortness Verified 02/26/18 04:25 of Breath house dust Allergy Wheezing Verified 02/26/18 04:25 insulin detemir Allergy Shortness Verified 02/26/18 04:25 [From Levemir U-100 Insulin] of Breath mold Allergy Wheezing Verified 02/26/18 04:25 mushroom spores Allergy Wheezing Uncoded 02/26/18 04:25 Home Meds: Home Meds Albuterol Sulfate [Ventolin Hfa] 2 puff INH Q4H PRN 08/12/16 [History] Blood-Glucose Meter [Onetouch Ultramini] 1 strip SQ ASDIRECTED 08/12/16 [History ] Insulin Aspart [NovoLOG] 1 dose SQ TID 08/12/16 [History] Levothyroxine 112 mcg PO DAILY 04/13/17 [History] Amiodarone [Cordarone] 200 mg PO DAILY 02/16/18 [History] Docusate Sodium [Dss] 250 mg PO DAILY 02/16/18 [History] Furosemide 20 mg PO DAILY 02/16/18 [History] Metoprolol Tartrate 37.5 mg PO BID 02/16/18 [History] Rivaroxaban [Xarelto] 15 mg PO DAILY 02/16/18 [History] atorvaSTATin Calcium [Atorvastatin Calcium] 10 mg PO BEDTIME 02/16/18 [History] Insulin Glarg,Human.Rec.Analog [Lantus Solostar] 25 unit SUBCUT ACBREAKFAST [History] Lecithin 1,200 mg PO BID 10/04/18 [History] [place]-3 Fatty Acids [Maxepa] 500 mg PO DAILY 10/04/18 [History] Past Medical History HEENT History: Reports: Cataract, Hard of Hearing, Impaired Vision, Other (See Below) Other HEENT History: strabismus Cardiovascular History: Reports: Afib, Aneurysm, Bypass, CAD, Heart Murmur, High Cholesterol, Hypertension, MS, SOB on Exertion Other Cardiovascular History: Abnormality of thoracic aorta aortic insufficienty Respiratory History: Reports: Asthma, COPD Gastrointestinal History: Reports: Other (See Below) Other Gastrointestinal History: Cholitis Genitourinary History: Reports: Other (See Below) Other Genitourinary History: urinary frequency Musculoskeletal History: Reports: Arthritis, Osteoarthritis, Other (See Below) Other Musculoskeletal History: spinal stenosis Lumbar polyneuropathy Endocrine/Metabolic History: Reports: Diabetes, Type II Other Endocrine/Metabolic History: insulin dependent Hematologic History: Reports: Anticoagulation Therapy Oncologic (Cancer) History: Reports: Squamous Cell Carcinoma, Other (See Below) Other Oncologic History: Left hand - Infectious Disease History Infectious Disease History: Reports: Chicken Pox, Measles, Mumps - Past Surgical History HEENT Surgical History: Reports: Tonsillectomy Cardiovascular Surgical History: Reports: Coronary Artery Bypass, Coronary Artery Stent GI Surgical History: Reports: Colonoscopy Musculoskeletal Surgical History: Reports: Arthroscopic Knee, Knee Replacement Social & Family History - Family History Family Medical History: Noncontributory - Tobacco Use Smoking Status *Q: Never Smoker - Caffeine Use Caffeine Use: Reports: Coffee - Recreational Drug Use Recreational Drug Use: No ED ROS GENERAL - Review of Systems Review Of Systems: See Below Constitutional: Reports: No Symptoms HEENT: Reports: No Symptoms Respiratory: Reports: Shortness of Breath Cardiovascular: Reports: Chest Pain GI/Abdominal: Reports: Nausea, Vomiting : Reports: No Symptoms Musculoskeletal: Reports: No Symptoms Skin: Reports: No Symptoms Neurological: Reports: No Symptoms ED EXAM, GENERAL - Physical Exam Exam: See Below Exam Limited By: No Limitations General Appearance: Alert, WD/WN, No Apparent Distress Neck: Normal Inspection, Supple, Non-Tender, Full Range of Motion Respiratory/Chest: No Respiratory Distress, Lungs Clear, Normal Breath Sounds, No Accessory Muscle Use, Chest Non-Tender Cardiovascular: Regular Rate, Rhythm, No Murmur GI/Abdominal: Soft, Non-Tender Back Exam: No: CVA Tenderness (R), CVA Tenderness (L) Extremities: No Pedal Edema Course - Vital Signs Last Recorded V/S: Last Vital Signs Temp 96.5 F 10/04/18 10:38 Pulse 100 10/04/18 10:38 Resp 12 10/04/18 10:38 BP 122/78 10/04/18 10:38 Pulse Ox 99 10/04/18 10:38 - Orders/Labs/Meds Orders: Active Orders 24 hr Category Date Time Status Cardiac Monitoring [RC] .As Directed Care 10/04/18 11:02 Active EKG Documentation Completion [RC] ASDIRECTED Care 10/04/18 11:03 Active EKG 12 Lead [EK] Stat Ther 10/04/18 11:03 Ordered Labs: Laboratory Tests 10/04/18 10/04/18 10/04/18 Range/Units 11:09 11:09 11:09 WBC 6.1 (4.5-11.0) K/uL RBC 4.36 (4.30-5.90) M/uL Hgb 12.7 (12.0-15.0) g/dL Hct 37.6 L (40.0-54.0) % MCV 86 (80-98) fL MCH 29 (27-31) pg MCHC 34 (32-36) % Plt Count 209 (150-400) K/uL Neut % (Auto) 77 H (36-66) % Lymph % (Auto) 13 L (24-44) % Hendricks % (Auto) 9 H (2-6) % Eos % (Auto) 1 L (2-4) % Baso % (Auto) 0 (0-1) % D-Dimer, Quantitative < 100 (0.0-400.0) ng/mL Sodium 136 L (140-148) mmol/L Potassium 4.1 (3.6-5.2) mmol/L Chloride 101 (100-108) mmol/L Carbon Dioxide 29 (21-32) mmol/L Anion Gap 10.1 (5.0-14.0) mmol/L BUN 29 H (7-18) mg/dL Creatinine 1.7 H (0.8-1.3) mg/dL Est Cr Clr Drug Dosing TNP Estimated GFR (MDRD) 39 L (>60) Glucose 315 H (74-106) mg/dL Calcium 8.9 (8.5-10.1) mg/dL Total Bilirubin 0.8 D (0.2-1.0) mg/dL AST 23 (15-37) U/L ALT 33 (12-78) U/L Alkaline Phosphatase 79 (46-116) U/L Troponin I < 0.017 (0.000-0.056) ng/mL Total Protein 6.4 (6.4-8.2) g/dL Albumin 3.7 (3.4-5.0) g/dL Globulin 2.7 (2.3-3.5) g/dL Albumin/Globulin Ratio 1.4 (1.2-2.2) Meds: Medications Discontinued Medications Generic Name Dose Route Start Last Admin Trade Name Freq PRN Reason Stop Dose Admin Aspirin 324 mg 10/04/18 11:02 10/04/18 11:21 Aspirin PO 10/04/18 11:03 324 mg ONETIME ONE Administration Departure - Departure Time of Disposition: 12:36 Disposition: Home, Self-Care 01 Condition: Fair Clinical Impression: Atypical chest pain - Discharge Information Referrals: Main Cantu MD [Primary Care Provider] - Forms: ED Department Discharge Additional Instructions: Recommend follow-up with your primary care provider to review your kidney function and to review your recent chest x-ray with prior x-rays, call or return to the emergency department worsening of symptoms - My Orders Last 24 Hours: My Active Orders 10/04/18 11:02 Cardiac Monitoring [RC] .As Directed 10/04/18 11:03 EKG Documentation Completion [RC] ASDIRECTED EKG 12 Lead [EK] Stat - Assessment/Plan Last 24 Hours: My Active Orders 10/04/18 11:02 Cardiac Monitoring [RC] .As Directed 10/04/18 11:03 EKG Documentation Completion [RC] ASDIRECTED EKG 12 Lead [EK] Stat Plan: Assessment Acuity = acute Site and laterality = atypical chest pain Etiology = unclear etiology Manifestations = none Location of injury = Home Lab values = CBC unremarkable, d-dimer is negative, creatinine elevated 1.7 stage G IIIB renal failure however review of records 8 months ago revealed a normal creatinine. Troponin was negative EKG shows a sinus rhythm with no sign of ischemic events chest x-ray does show a 4 cm opacity change which is different from prior exams unclear what this is recommend follow-up imaging studies Plan I did review lab work and chest x-ray results with him he is going to follow up with his primary care to discuss his kidney function and changes in his chest x- ray he remained pain-free while in the emergency department completely asymptomatic This note was dictated using [employer] voice recognition software please call with any questions on syntax or grammar.
--- NOTE | 2018-10-04 12:14 | CRLCR ---
INDICATION: Chest pain. TECHNIQUE: PA and lateral chest x-ray. COMPARISON: 02/28/2018. FINDINGS: Focal irregular opacity along the left lower lobe lateral heart border is more prominent than on the prior exam and covers an area of nearly 4 cm. This is predominantly seen on the frontal view and was present previously but is slightly denser. There is a cardiac fat pad in this region and this could be related in part to this cardiac fat pad but I cannot exclude a small amount of infiltrate, atelectasis, or scarring in this region or even an ill-defined nodular opacity. Short-term followup x-ray is recommended to ensure this does not persist or progress. If it does persist or enlarge, correlation with CT would be suggested. Linear atelectasis or scarring in the right infrahilar lung new. Sternotomy stable. Heart is upper limits of normal and stable. Remainder negative. Dictated by Brent Chan MD @ Oct 04 2018 11:51AM Signed by Dr. Brent Chan @ Oct 04 2018 12:12PM
[2018-10-04 12:20] VITALS: BP 122/78; PULSE 100
== END 2018-10-04 12:46 | disposition home or self-care (01) ==
LOC: JP.ED 10:21
DX: R07.89 Other chest pain (principal); C76.42 Malignant neoplasm of left upper limb; I10 Essential (primary) hypertension; J44.9 Chronic obstructive pulmonary disease, unspecified; E11.9 Type 2 diabetes mellitus without complications; M19.90 Unspecified osteoarthritis, unspecified site; E78.00 Pure hypercholesterolemia, unspecified; Z91.048 Other nonmedicinal substance allergy status; Z88.8 Allergy status to other drugs, medicaments and biological substances; Z91.02 Food additives allergy status; Z79.4 Long term (current) use of insulin; Z79.899 Other long term (current) drug therapy
CPT/HCPCS: 36415; 71046; 80053; 84484; 85025; 85379; 93005; 99285; A9270; 93010; 99284

== ENCOUNTER 2019-05-10 11:52 | Emergency (ER) | payer MEDICARE, BC ==
[2019-05-10 12:29] VITALS: BP 138/80; PULSE 51
--- NOTE | 2019-05-10 13:06 | EDM.PDOC ---
ED HPI GENERAL MEDICAL PROBLEM - General Chief Complaint: General Stated Complaint: DIZZY,SHOULDER PAIN,RT LEG PAIN Time Seen by Provider: 05/10/19 12:35 Source of Information: Reports: Patient, Family History Limitations: Reports: No Limitations - History of Present Illness INITIAL COMMENTS - FREE TEXT/NARRATIVE: 79-year-old male who underwent an ablation for atrial fibrillation 2 days ago, a procedure that went through the right groin presents today with right leg pain and dizziness. He called the cardiology department and they told him to come in to get checked. He has no significant shortness of breath, he is just concerned that he is dizzy especially when standing and the pain is especially bad in his right calf. He is on Xarelto and Plavix, however he stopped both medications prior to his procedure for at least 4 days. No fevers or chills, no cough. Onset: Gradual Duration: Day(s): (1 to 2 days) Location: Reports: Lower Extremity, Right Associated Symptoms: Denies: Confusion, Chest Pain, Cough, Diaphoresis, Headaches, Malaise, Nausea/Vomiting, Shortness of Breath, Weakness Right Lower Leg Pain Score (Numeric/FACES): 9 - Related Data Allergies Allergy/AdvReac Type Severity Reaction Status Date / Time [place]-Onw-Lev Reductase Allergy Mild Fatigue Verified 05/10/19 12:29 Inhibitor cat dander Allergy Shortness Verified 05/10/19 12:29 of Breath dog dander Allergy Shortness Verified 05/10/19 12:29 of Breath house dust Allergy Wheezing Verified 05/10/19 12:29 insulin detemir Allergy Shortness Verified 05/10/19 12:29 [From Levemir U-100 Insulin] of Breath mold Allergy Wheezing Verified 05/10/19 12:29 mushroom spores Allergy Wheezing Uncoded 05/10/19 12:29 Home Meds: Home Meds Albuterol Sulfate [Ventolin Hfa] 2 puff INH Q4H PRN 08/12/16 [History] Blood-Glucose Meter [Onetouch Ultramini] 1 strip SQ ASDIRECTED 08/12/16 [History ] Insulin Aspart [NovoLOG] 1 dose SQ TID 08/12/16 [History] Levothyroxine 112 mcg PO DAILY 04/13/17 [History] Amiodarone [Cordarone] 200 mg PO DAILY 02/16/18 [History] Docusate Sodium [Dss] 250 mg PO DAILY 02/16/18 [History] Furosemide 20 mg PO DAILY 02/16/18 [History] Metoprolol Tartrate 25 mg PO BID 02/16/18 [History] Rivaroxaban [Xarelto] 15 mg PO DAILY 02/16/18 [History] atorvaSTATin Calcium [Atorvastatin Calcium] 10 mg PO BEDTIME 02/16/18 [History] Insulin Glarg,Human.Rec.Analog [Lantus Solostar] 21 unit SUBCUT ACBREAKFAST [History] Lecithin 1,200 mg PO BID 10/04/18 [History] [place]-3 Fatty Acids [Maxepa] 500 mg PO DAILY 10/04/18 [History] Clopidogrel Bisulfate [Clopidogrel] 75 mg PO DAILY 05/10/19 [History] Past Medical History HEENT History: Reports: Cataract, Hard of Hearing, Impaired Vision, Other (See Below) Other HEENT History: strabismus Cardiovascular History: Reports: Afib, Aneurysm, Bypass, CAD, Heart Murmur, High Cholesterol, Hypertension, CA, SOB on Exertion Other Cardiovascular History: Abnormality of thoracic aorta aortic insufficienty Respiratory History: Reports: Asthma, COPD Gastrointestinal History: Reports: Other (See Below) Other Gastrointestinal History: Cholitis Genitourinary History: Reports: Other (See Below) Other Genitourinary History: urinary frequency Musculoskeletal History: Reports: Arthritis, Osteoarthritis, Other (See Below) Other Musculoskeletal History: spinal stenosis Lumbar polyneuropathy Endocrine/Metabolic History: Reports: Diabetes, Type II Other Endocrine/Metabolic History: insulin dependent Hematologic History: Reports: Anticoagulation Therapy Oncologic (Cancer) History: Reports: Squamous Cell Carcinoma, Other (See Below) Other Oncologic History: Left hand - Infectious Disease History Infectious Disease History: Reports: Chicken Pox, Measles, Mumps - Past Surgical History HEENT Surgical History: Reports: Tonsillectomy Cardiovascular Surgical History: Reports: Cardiac Ablation, Coronary Artery Bypass, Coronary Artery Stent Other Cardiovascular Surgeries/Procedures: Ablation 05/08/2019 GI Surgical History: Reports: Colonoscopy Musculoskeletal Surgical History: Reports: Arthroscopic Knee, Knee Replacement Social & Family History - Family History Family Medical History: Noncontributory - Tobacco Use Smoking Status *Q: Never Smoker - Caffeine Use Caffeine Use: Reports: Coffee - Recreational Drug Use Recreational Drug Use: No ED ROS GENERAL - Review of Systems Review Of Systems: See Below Constitutional: Denies: Fever HEENT: Reports: No Symptoms Respiratory: Denies: Shortness of Breath Cardiovascular: Denies: Chest Pain GI/Abdominal: Denies: Nausea, Vomiting Musculoskeletal: Reports: Other (Fairly sharp right leg pain especially the lower leg, and some dull posterior right shoulder pain as well.) Skin: Reports: Bruising (Patient has significant bruising in his right groin from his recent procedure) Neurological: Reports: Dizziness. Denies: Headache Psychiatric: Reports: No Symptoms ED EXAM, GENERAL - Physical Exam Exam: See Below Exam Limited By: No Limitations General Appearance: Alert, No Apparent Distress Eye Exam: Bilateral Eye: Other (Patient is a chronic disconjugate gaze, lazy right eye) Head: Atraumatic Neck: Supple Respiratory/Chest: No Respiratory Distress Cardiovascular: Regular Rate, Rhythm, Bradycardia. No: Extra Beats GI/Abdominal: Soft, Non-Tender Extremities: Other (Patient has a moderate ecchymotic area of the right groin with a very small underlying hematoma typical for his recent procedure. On palpation there is some dull tenderness to the thigh and calf area of the leg. ) Course - Vital Signs Last Recorded V/S: Last Vital Signs Temp 98.3 F 05/10/19 12:23 Pulse 51 L 05/10/19 12:23 Resp 20 05/10/19 12:23 BP 138/80 05/10/19 12:23 Pulse Ox 99 05/10/19 12:23 Orthostatic Blood Pressure [ 132/74 Standing] Orthostatic Blood Pressure [ 121/69 Sitting] Orthostatic Blood Pressure [ 129/76 Supine] - Re-Assessments/Exams Free Text/Narrative Re-Assessment/Exam: 05/10/19 13:59 He was kept on cardiac monitoring, orthostatics were done and blood pressure was stable but pulse never reached more than 53. I consulted the cardiology department in [place] and it was recommended he stop his metoprolol and continue amiodarone. While the patient was here he did get hypoglycemic with a level of 47 so took his own glucose supply and was given lunch and felt much better. His pain in his shoulders and leg are likely from lying on the table, this also was agreed to by cardiology and he should increase activity as tolerated. Departure - Departure Time of Disposition: 14:10 Disposition: Home, Self-Care 01 Clinical Impression: Dizziness, Bradycardia, Leg pain, right - Discharge Information Instructions: Bradycardia, Adult Referrals: Main Cantu MD [Primary Care Provider] - Forms: ED Department Discharge Care Plan Goals: Stop metoprolol, and continue all other medications and increase activity as tolerated. Return if worsening such as shortness of breath or increased leg pain, or leg swelling. Sepsis Event Note - Evaluation Sepsis Screening Result: No Definite Risk - Focused Exam Vital Signs: Vital Signs Temp Pulse Resp BP Pulse Ox 05/10/19 12:23 98.3 F 51 L 20 138/80 99 Date Exam was Performed: 05/10/19 Time Exam was Performed: 14:34
== END 2019-05-10 14:20 | disposition home or self-care (01) ==
LOC: JP.ED 11:52
DX: M79.661 Pain in right lower leg (principal); R42 Dizziness and giddiness; R00.1 Bradycardia, unspecified; I25.10 Atherosclerotic heart disease of native coronary artery without angina pectoris; I48.91 Unspecified atrial fibrillation; J44.9 Chronic obstructive pulmonary disease, unspecified; E78.00 Pure hypercholesterolemia, unspecified; E11.9 Type 2 diabetes mellitus without complications; I25.2 Old myocardial infarction; Z79.01 Long term (current) use of anticoagulants; Z79.4 Long term (current) use of insulin; Z79.899 Other long term (current) drug therapy; Z91.09 Other allergy status, other than to drugs and biological substances; Z88.8 Allergy status to other drugs, medicaments and biological substances
CPT/HCPCS: 82962; 99284

== ENCOUNTER 2019-11-11 12:37 | Emergency (ER) | payer MEDICARE, BC ==
[2019-11-11] MEDS ORDERED: Propofol 200 MG/20 ML SDV IVPUSH ONE (13:18)
--- NOTE | 2019-11-11 13:18 | EDM.PDOC ---
ED HPI GENERAL MEDICAL PROBLEM - General Chief Complaint: Chest Pain Stated Complaint: CHEST PAIN Time Seen by Provider: 11/11/19 13:00 Source of Information: Reports: Patient History Limitations: Reports: No Limitations - History of Present Illness INITIAL COMMENTS - FREE TEXT/NARRATIVE: 79-year old male with significant cardiac history, cardiac arrhythmias and ischemic heart disease has been doing well, had his best walk yesterday in some time, but this morning about 4 hours ago he developed sudden dizziness, chest discomfort and weakness which lasted 1/2-hour. He feels better now but he wanted it checked. He arrived in a combination of atrial fib and flutter with rapid ventricular response as high as 186. Otherwise stable. He underwent a procedure for an ablation earlier this year. Onset: Sudden Duration: Hour(s): (4 hours ago) Location: Reports: Neck, Chest Worsens with: Reports: Other (Activity causes shortness of breath, dizziness) Associated Symptoms: Reports: Chest Pain, Shortness of Breath, Weakness. Denies: Confusion, Nausea/Vomiting - Related Data Allergies Allergy/AdvReac Type Severity Reaction Status Date / Time Vhkqzbi-Isb-Pyn Reductase Allergy Mild Fatigue Verified 11/11/19 12:45 Inhibitor cat dander Allergy Shortness Verified 11/11/19 12:45 of Breath dog dander Allergy Shortness Verified 11/11/19 12:45 of Breath house dust Allergy Wheezing Verified 11/11/19 12:45 insulin detemir Allergy Shortness Verified 11/11/19 12:45 [From Levemir U-100 Insulin] of Breath mold Allergy Wheezing Verified 11/11/19 12:45 mushroom spores Allergy Wheezing Uncoded 11/11/19 12:45 Home Meds: Home Meds Albuterol Sulfate [Ventolin Hfa] 2 puff INH Q4H PRN 08/12/16 [History] Blood-Glucose Meter [Onetouch Ultramini] 1 strip SQ ASDIRECTED 08/12/16 [History] Insulin Aspart [NovoLOG] 1 dose SQ TID 08/12/16 [History] Levothyroxine 112 mcg PO DAILY 04/13/17 [History] Furosemide 20 mg PO DAILY 02/16/18 [History] Rivaroxaban [Xarelto] 15 mg PO DAILY 02/16/18 [History] atorvaSTATin Calcium [Atorvastatin Calcium] 10 mg PO BEDTIME 01/02/19 [History] Insulin Glarg,Human.Rec.Analog [Lantus Solostar] 21 unit SUBCUT ACBREAKFAST 10/04/18 [History] Clopidogrel Bisulfate [Clopidogrel] 75 mg PO DAILY 05/10/19 [History] Metoprolol Succinate [Toprol XL] 25 mg PO DAILY 30 Days #30 tab.er 11/11/19 [Rx] Past Medical History HEENT History: Reports: Cataract, Hard of Hearing, Impaired Vision, Other (See Below) Other HEENT History: strabismus Cardiovascular History: Reports: Afib, Aneurysm, Bypass, CAD, Heart Murmur, High Cholesterol, Hypertension, [place], SOB on Exertion Other Cardiovascular History: Abnormality of thoracic aorta aortic insufficienty Respiratory History: Reports: Asthma, COPD Gastrointestinal History: Reports: Other (See Below) Other Gastrointestinal History: Cholitis Genitourinary History: Reports: Other (See Below) Other Genitourinary History: urinary frequency Musculoskeletal History: Reports: Arthritis, Osteoarthritis, Other (See Below) Other Musculoskeletal History: spinal stenosis Lumbar polyneuropathy Endocrine/Metabolic History: Reports: Diabetes, Type II Other Endocrine/Metabolic History: insulin dependent Hematologic History: Reports: Anticoagulation Therapy Oncologic (Cancer) History: Reports: Squamous Cell Carcinoma, Other (See Below) Other Oncologic History: Left hand - Infectious Disease History Infectious Disease History: Reports: Chicken Pox, Measles, Mumps - Past Surgical History HEENT Surgical History: Reports: Tonsillectomy Cardiovascular Surgical History: Reports: Cardiac Ablation, Coronary Artery Bypass, Coronary Artery Stent Other Cardiovascular Surgeries/Procedures: Ablation 05/08/2019 GI Surgical History: Reports: Colonoscopy Musculoskeletal Surgical History: Reports: Arthroscopic Knee, Knee Replacement Social & Family History - Family History Family Medical History: Noncontributory - Tobacco Use Smoking Status *Q: Former Smoker Used Tobacco, but Quit: Yes Month/Year Tobacco Last Used: 60 years ago - Caffeine Use Caffeine Use: Reports: Coffee - Recreational Drug Use Recreational Drug Use: No ED ROS GENERAL - Review of Systems Review Of Systems: See Below Constitutional: Denies: Fever, Chills HEENT: Reports: Other (Disconjugate gaze, very hard of hearing) Respiratory: Reports: Shortness of Breath Cardiovascular: Reports: Chest Pain. Denies: Palpitations (Patient does not feel palpitations even with the arrhythmia) GI/Abdominal: Denies: Nausea, Vomiting Skin: Reports: Bruising (Bruises easily) Neurological: Reports: Weakness ED EXAM, GENERAL - Physical Exam Exam: See Below Exam Limited By: No Limitations General Appearance: Alert, No Apparent Distress, Other (Feeling much better) Eye Exam: Bilateral Eye: Other (Disconjugate gaze is present) Head: Atraumatic Respiratory/Chest: No Respiratory Distress, Lungs Clear Cardiovascular: Tachycardia, Irregularly Irregular GI/Abdominal: Soft, Non-Tender Extremities: Pedal Edema (Just a trace bilaterally, symmetric) Neurological: Alert, Oriented Psychiatric: Normal Affect, Normal Mood Skin Exam: Warm, Dry EKG INTERPRETATION EKG Date: 11/11/19 Rhythm: A-Flutter (Initial EKG showed 2-1 atrial flutter with a rate of 110) Comparison: Change From Previous EKG (Previous EKG showed sinus rhythm, 6 months ago) Course - Vital Signs Last Recorded V/S: Last Vital Signs Temp 97.1 F 11/11/19 12:53 Pulse 65 11/11/19 14:04 Resp 24 H 11/11/19 12:53 BP 112/58 L 11/11/19 14:04 Pulse Ox 98 11/11/19 12:53 - Orders/Labs/Meds Orders: Active Orders 24 hr Category Date Time Status EKG Documentation Completion [RC] ASDIRECTED Care 11/11/19 13:10 Active EKG Documentation Completion [RC] ASDIRECTED Care 11/11/19 14:21 Ordered EKG 12 Lead [EK] Stat Ther 11/11/19 14:21 Ordered Labs: Laboratory Tests 11/11/19 11/11/19 Range/Units 13:19 13:19 WBC 3.0 L (4.5-11.0) K/uL RBC 4.74 (4.30-5.90) M/uL Hgb 13.8 (12.0-15.0) g/dL Hct 40.8 (40.0-54.0) % MCV 86 (80-98) fL MCH 29 (27-31) pg MCHC 34 (32-36) % Plt Count 201 (150-400) K/uL Neut % (Auto) 58 (36-66) % Lymph % (Auto) 25 (24-44) % [place] % (Auto) 13 H (2-6) % Eos % (Auto) 3 (2-4) % Baso % (Auto) 1 (0-1) % Sodium 138 L (140-148) mmol/L Potassium 4.1 (3.6-5.2) mmol/L Chloride 101 (100-108) mmol/L Carbon Dioxide 25 (21-32) mmol/L Anion Gap 16.1 H (5.0-14.0) mmol/L BUN 16 (7-18) mg/dL Creatinine 1.1 (0.8-1.3) mg/dL Est Cr Clr Drug Dosing 56.09 mL/min Estimated GFR (MDRD) > 60 (>60) Glucose 261 H (74-106) mg/dL Calcium 9.1 (8.5-10.1) mg/dL Troponin I 0.028 (0.000-0.056) ng/mL Meds: Medications Discontinued Medications Generic Name Dose Route Start Last Admin Trade Name Freq PRN Reason Stop Dose Admin Metoprolol Succinate 25 mg 11/11/19 13:45 11/11/19 14:04 Toprol Xl PO 11/11/19 13:46 25 mg ONETIME ONE Administration Propofol 120 mg 11/11/19 13:18 11/11/19 13:31 Diprivan 20 Ml IVPUSH 11/11/19 13:19 100 mg ONETIME ONE Administration - Re-Assessments/Exams Free Text/Narrative Re-Assessment/Exam: 11/11/19 14:32 Patient was kept on a monitor technician while CBC BMP and troponin were obtained. While on the monitor he displayed several episodes of intense rapid ventricular response from atrial for flutter, at rates of as high as 200. Blood pressure remained stable but it did cause some shortness of breath. He has not eaten today, so with the assistance of the hospitalist service, Dr. Christianson, patient was prepared for elective cardioversion. After consent was signed, risks and benefits discussed the patient agreed to the cardioversion. 100 mg of propofol was used IV which provided good sedation and the patient converted with 1 synchronized cardioversion. He was monitored for an additional hour and remained in sinus rhythm and asymptomatic. He was given 25 mg of extended release metoprolol, and an additional 30 were called in for him to be maintained 1 daily. He will return if symptoms recur. 11/11/19 14:38 Patient was discharged stable in sinus rhythm, EKG prior to discharge showed normal sinus rhythm Departure - Departure Time of Disposition: 14:50 Disposition: Home, Self-Care 01 Clinical Impression: Atrial fibrillation and flutter, Narrow complex tachycardia - Discharge Information Prescriptions: Metoprolol Succinate [Toprol XL] 25 mg PO DAILY 30 Days #30 tab.er Instructions: Atrial Fibrillation, Alqe-it-Hnyc Referrals: PCP,None [Primary Care Provider] - Forms: ED Department Discharge Care Plan Goals: Continue your current medications with the addition of a daily dose of metoprolol as prescribed. Return anytime if symptoms are recurrent. Sepsis Event Note (ED) - Evaluation Sepsis Screening Result: No Definite Risk - Focused Exam Vital Signs: Vital Signs Temp Pulse Pulse Resp BP BP Pulse Ox 11/11/19 14:04 65 112/58 L 11/11/19 12:53 97.1 F 110 H 24 H 141/80 H 98 - My Orders Last 24 Hours: My Active Orders 11/11/19 13:10 EKG Documentation Completion [RC] ASDIRECTED 11/11/19 14:21 EKG Documentation Completion [RC] ASDIRECTED EKG 12 Lead [EK] Stat - Assessment/Plan Last 24 Hours: My Active Orders 11/11/19 13:10 EKG Documentation Completion [RC] ASDIRECTED 11/11/19 14:21 EKG Documentation Completion [RC] ASDIRECTED EKG 12 Lead [EK] Stat
[2019-11-11] MEDS ORDERED: Metoprolol Succinate 25 MG Tab.ER PO ONE (13:45)
--- NOTE | 2019-11-11 13:55 | PCM.PRNOTE ---
- Free Text/Narrative Note: Date of service: 11/11/2019 Proposed procedure: Synchronized cardioversion Preprocedure diagnosis: Paroxysmal atrial fibrillation/flutter with rapid ventricular response Post procedure diagnosis: Paroxysmal atrial fibrillation/flutter with rapid ventricular response Indication for procedure: Jamshid was evaluated today for management atrial fibrillation/flutter with symptoms and rapid ventricular response. Synchronized cardioversion was recommended as a primary treatment. Description of the procedure: Jamshid is currently located be 9 of the emergency room. We have reviewed the potential risks of electrical cardioversion including but not limited to: Superficial skin gonzales, ineffective treatment, other arrhythmias, reaction to anesthesia medications or potentially asystole. The benefits of the procedure have also been reviewed. At this time the patient wishes to proceed with electrical cardioversion. All necessary pre-procedure information and paperwork has been provided and completed, respectively. The patient was connected to cardioversion pads and monitoring equipment per protocol. Prior to the procedure, a timeout was held with nursing and anesthesia present to confirm the right patient and right procedure. Once appropriate anesthesia was applied the machine was charged to 150 Joules and a synchronized electrical shock was applied. The patient was successfully converted to normal sinus rhythm based on telemetry monitoring. They will remain in their current location until anesthesia has dissipated and the patient is more awake and alert. They will then be discharged to home once medically stable. Anticoagulation should be continued for at least one month post cardioversion. There were no immediate complications noted from the procedure. Post procedure EKG is pending at the time of dictation. Daryl Christianson M.D.
[2019-11-11 14:05] VITALS: BP 112/58; PULSE 65
== END 2019-11-11 14:47 | disposition home or self-care (01) ==
LOC: JP.ED 12:37
DX: I48.92 Unspecified atrial flutter (principal); R00.0 Tachycardia, unspecified; I48.91 Unspecified atrial fibrillation; I25.10 Atherosclerotic heart disease of native coronary artery without angina pectoris; E78.00 Pure hypercholesterolemia, unspecified; I10 Essential (primary) hypertension; I25.2 Old myocardial infarction; J44.9 Chronic obstructive pulmonary disease, unspecified; E11.9 Type 2 diabetes mellitus without complications; Z79.01 Long term (current) use of anticoagulants; Z88.8 Allergy status to other drugs, medicaments and biological substances; Z91.048 Other nonmedicinal substance allergy status; Z79.4 Long term (current) use of insulin; Z79.899 Other long term (current) drug therapy; Z79.02 Long term (current) use of antithrombotics/antiplatelets; Z87.891 Personal history of nicotine dependence
CPT/HCPCS: 36415; 80048; 84484; 85025; 92960; 93005; 99285; A9270; J2704

== ENCOUNTER 2019-12-13 10:46 | Emergency (ER) | payer MEDICARE, BC ==
[2019-12-13] MEDS ORDERED: Sodium Chloride 0.9% 10 ML Syringe FLUSH PRN (11:21)
[2019-12-13 11:22] VITALS: BP 166/96; PULSE 104
--- NOTE | 2019-12-13 12:09 | CR ---
CHEST: 2 view CLINICAL HISTORY:Dyspnea COMPARISON:2019 FINDINGS: There has been previous sternotomy. The heart size, pulmonary vascularity and hilar structures are normal. No infiltrate effusion or pneumothorax is seen. There are atherosclerotic changes in the aorta. IMPRESSION: No acute cardiopulmonary process.
--- NOTE | 2019-12-13 12:36 | EDM.PDOC ---
ED HPI GENERAL MEDICAL PROBLEM - General Chief Complaint: Cardiovascular Problem Stated Complaint: HEART ISSUES Time Seen by Provider: 12/13/19 11:19 Source of Information: Reports: Patient History Limitations: Reports: No Limitations - History of Present Illness INITIAL COMMENTS - FREE TEXT/NARRATIVE: Jamshid is an 79-year-old male presenting to the ED for increasing dyspnea on ex ertion today. Patient has a history significant for coronary artery disease status post stent placement and COPD. Patient reports that his heart was racing before becoming short of breath. - Related Data Allergies Allergy/AdvReac Type Severity Reaction Status Date / Time Gcxcunb-Jxt-Eil Reductase Allergy Mild Fatigue Verified 11/11/19 12:45 Inhibitor cat dander Allergy Shortness Verified 11/11/19 12:45 of Breath dog dander Allergy Shortness Verified 11/11/19 12:45 of Breath house dust Allergy Wheezing Verified 11/11/19 12:45 insulin detemir Allergy Shortness Verified 11/11/19 12:45 [From Levemir U-100 Insulin] of Breath mold Allergy Wheezing Verified 11/11/19 12:45 mushroom spores Allergy Wheezing Uncoded 11/11/19 12:45 Home Meds: Home Meds Albuterol Sulfate [Ventolin Hfa] 2 puff INH Q4H PRN 08/12/16 [History] Blood-Glucose Meter [Onetouch Ultramini] 1 strip SQ ASDIRECTED 08/12/16 [History] Insulin Aspart [NovoLOG] 1 dose SQ TID 08/12/16 [History] Levothyroxine 112 mcg PO DAILY 04/13/17 [History] Furosemide 20 mg PO DAILY 02/16/18 [History] Rivaroxaban [Xarelto] 15 mg PO DAILY 02/16/18 [History] atorvaSTATin Calcium [Atorvastatin Calcium] 10 mg PO BEDTIME 02/16/18 [History] Insulin Glarg,Human.Rec.Analog [Lantus Solostar] 21 unit SUBCUT ACBREAKFAST 10/04/18 [History] Clopidogrel Bisulfate [Clopidogrel] 75 mg PO DAILY 05/10/19 [History] Metoprolol Succinate [Toprol XL] 25 mg PO DAILY 30 Days #30 tab.er 11/11/19 [Rx] Past Medical History HEENT History: Reports: Cataract, Hard of Hearing, Impaired Vision, Other (See Below) Other HEENT History: strabismus Cardiovascular History: Reports: Afib, Aneurysm, Bypass, CAD, Heart Murmur, High Cholesterol, Hypertension, [place], SOB on Exertion Other Cardiovascular History: Abnormality of thoracic aorta aortic insufficienty Respiratory History: Reports: Asthma, COPD Gastrointestinal History: Reports: Other (See Below) Other Gastrointestinal History: Cholitis Genitourinary History: Reports: Other (See Below) Other Genitourinary History: urinary frequency Musculoskeletal History: Reports: Arthritis, Osteoarthritis, Other (See Below) Other Musculoskeletal History: spinal stenosis Lumbar polyneuropathy Endocrine/Metabolic History: Reports: Diabetes, Type II Other Endocrine/Metabolic History: insulin dependent Hematologic History: Reports: Anticoagulation Therapy Oncologic (Cancer) History: Reports: Squamous Cell Carcinoma, Other (See Below) Other Oncologic History: Left hand - Infectious Disease History Infectious Disease History: Reports: Chicken Pox, Measles, Mumps - Past Surgical History HEENT Surgical History: Reports: Tonsillectomy Cardiovascular Surgical History: Reports: Cardiac Ablation, Coronary Artery Bypass, Coronary Artery Stent Other Cardiovascular Surgeries/Procedures: Ablation 05/08/2019 GI Surgical History: Reports: Colonoscopy Musculoskeletal Surgical History: Reports: Arthroscopic Knee, Knee Replacement Social & Family History - Family History Family Medical History: Noncontributory - Tobacco Use Tobacco Use Status *Q: Former Tobacco User Used Tobacco, but Quit: No Month/Year Tobacco Last Used: 62 years ago - Caffeine Use Caffeine Use: Reports: None - Recreational Drug Use Recreational Drug Use: No ED ROS GENERAL - Review of Systems Review Of Systems: See Below Constitutional: Reports: Fatigue HEENT: Reports: No Symptoms Respiratory: Reports: Shortness of Breath (Dyspnea on exertion) Cardiovascular: Reports: Palpitations (Tachycardia) Endocrine: Reports: No Symptoms GI/Abdominal: Reports: No Symptoms : Reports: No Symptoms Musculoskeletal: Reports: No Symptoms Skin: Reports: No Symptoms Neurological: Reports: No Symptoms Psychiatric: Reports: No Symptoms Hematologic/Lymphatic: Reports: No Symptoms Immunologic: Reports: No Symptoms ED EXAM, GENERAL - Physical Exam Exam: See Below Exam Limited By: No Limitations General Appearance: Alert, WD/WN, No Apparent Distress Eye Exam: Bilateral Eye: EOMI, PERRL Throat/Mouth: Normal Inspection, Normal Lips, Normal Oropharynx, Normal Voice Head: Atraumatic, Normocephalic Neck: Normal Inspection, Supple, Non-Tender, Full Range of Motion Respiratory/Chest: No Respiratory Distress, Rales (Bibasilar) Cardiovascular: Normal Peripheral Pulses, No Edema, No JVD, No Murmur, Tachycardia Peripheral Pulses: 2+: Radial (L), Radial (R) GI/Abdominal: Normal Bowel Sounds, Soft, Non-Tender, No Distention Back Exam: Normal Inspection, Full Range of Motion Extremities: Normal Inspection, Normal Range of Motion, Non-Tender, No Pedal Edema Neurological: Alert, Oriented, CN II-XII Intact, Normal Cognition, No Motor/Sensory Deficits Psychiatric: Normal Affect, Normal Mood Skin Exam: Warm, Dry, Intact #1 Interpretation EKG Date: 12/13/19 Rhythm: NSR Rate (Beats/Min): 108 QRS: Wide (Incomplete right bundle branch block, left anterior fascicular block) ST-T: Elevated (Secondary to repolarization abnormality from the bundle branch block.) QT: Normal Course - Vital Signs Last Recorded V/S: Last Vital Signs Temp 36 C L 12/13/19 11:09 Pulse 104 H 12/13/19 11:09 Resp 18 12/13/19 11:09 BP 166/96 H 12/13/19 11:09 Pulse Ox 99 12/13/19 11:09 - Orders/Labs/Meds Orders: Active Orders 24 hr Category Date Time Status EKG Documentation Completion [RC] ASDIRECTED Care 12/13/19 11:20 Active Sodium Chloride 0.9% [Saline Flush] Med 12/13/19 11:21 Active 10 ml FLUSH ASDIRECTED PRN Saline Lock Insert [OM.PC] Routine Oth 12/13/19 11:21 Ordered EKG 12 Lead [EK] Routine Ther 12/13/19 11:19 Ordered Medication Orders Sodium Chloride (Saline Flush) 10 ml FLUSH ASDIRECTED PRN PRN Reason: Keep Vein Open Last Admin: 12/13/19 11:22 Dose: 10 ml Documented by: [id number] Labs: Laboratory Tests 12/13/19 12/13/19 12/13/19 Range/Units 11:24 11:24 11:24 WBC 3.3 L (4.5-11.0) K/uL RBC 4.76 (4.30-5.90) M/uL Hgb 14.1 (12.0-15.0) g/dL Hct 40.4 (40.0-54.0) % MCV 85 (80-98) fL MCH 30 (27-31) pg MCHC 35 (32-36) % Plt Count 213 (150-400) K/uL Neut % (Auto) 61 (36-66) % Lymph % (Auto) 22 L (24-44) % [place] % (Auto) 11 H (2-6) % Eos % (Auto) 4 (2-4) % Baso % (Auto) 2 H (0-1) % APTT 27.1 (27.0-36.0) sec Sodium 138 L (140-148) mmol/L Potassium 3.9 (3.6-5.2) mmol/L Chloride 102 (100-108) mmol/L Carbon Dioxide 26 (21-32) mmol/L Anion Gap 13.9 (5.0-14.0) mmol/L BUN 17 (7-18) mg/dL Creatinine 1.1 (0.8-1.3) mg/dL Est Cr Clr Drug Dosing 56.09 mL/min Estimated GFR (MDRD) > 60 (>60) Glucose 110 H (74-106) mg/dL Calcium 9.1 (8.5-10.1) mg/dL Total Bilirubin 0.4 (0.2-1.0) mg/dL AST 21 (15-37) U/L ALT 33 (12-78) U/L Alkaline Phosphatase 91 (46-116) U/L Troponin I < 0.017 (0.000-0.056) ng/mL NT-Pro-B Natriuret Pep 735 H (5-450) pg/mL Total Protein 6.7 (6.4-8.2) g/dL Albumin 3.8 (3.4-5.0) g/dL Globulin 2.9 (2.3-3.5) g/dL Albumin/Globulin Ratio 1.3 (1.2-2.2) Meds: Medications Generic Name Dose Route Start Last Admin Trade Name Freq PRN Reason Stop Dose Admin Sodium Chloride 10 ml 12/13/19 11:21 12/13/19 11:22 Saline Flush FLUSH 10 ml ASDIRECTED PRN Administration Keep Vein Open - Re-Assessments/Exams Free Text/Narrative Re-Assessment/Exam: 12/13/19 14:00 white has elevation of his proBNP which is likely due to congestive heart failure. He has bibasilar Rales on examination suggesting left-sided failure. This may have been the nidus for his dyspnea on exertion. We will increase his Lasix to 60 mg in the morning and 20 mg in the evening. I had like him to follow-up with his primary care provider in 1 week's time for reevaluation. Indications return to the ED were also discussed with the patient who is in agreement with this plan. Departure - Departure Time of Disposition: 14:33 Disposition: Home, Self-Care 01 Condition: Good Clinical Impression: Tachycardia Congestive heart failure Qualifiers: Heart failure type: combined systolic and diastolic Heart failure chronicity: acute Qualified Code(s): I50.41 - Acute combined systolic (congestive) and diastolic (congestive) heart failure Instructions: Living With Heart Failure, Heart Failure Eating Plan, Sinus Tachycardia Referrals: Main Cantu MD [Primary Care Provider] - Forms: ED Department Discharge Care Plan Goals: I would like you to increase your furosemide dose to 3 tablets in the morning and 1 tablet in the evening. Please make an arrangement to follow-up with your primary care provider in 1 week's time for reevaluation. Should you develop significant shortness of breath, lightheadedness, chest pain, or increased swelling please return to the ED for reevaluation. Sepsis Event Note (ED) - Evaluation Sepsis Screening Result: No Definite Risk - Focused Exam Vital Signs: Vital Signs Temp Pulse Resp BP Pulse Ox 12/13/19 11:09 36 C L 104 H 18 166/96 H 99 12/13/19 11:08 36 C L 104 H 18 166/96 H 99 - Problem List & Annotations (1) Congestive heart failure SNOMED Code(s): 89280053 Code(s): I50.9 - HEART FAILURE, UNSPECIFIED Status: Acute Priority: High Current Visit: Yes Qualifiers: Heart failure type: combined systolic and diastolic Heart failure chronicity: acute Qualified Code(s): I50.41 - Acute combined systolic (congestive) and diastolic (congestive) heart failure (2) Tachycardia SNOMED Code(s): 3121668 Code(s): R00.0 - TACHYCARDIA, UNSPECIFIED Status: Acute Priority: High Current Visit: Yes - Problem List Review Problem List Initiated/Reviewed/Updated: Yes - My Orders Last 24 Hours: My Active Orders 12/13/19 11:19 EKG 12 Lead [EK] Routine 12/13/19 11:20 EKG Documentation Completion [RC] ASDIRECTED 12/13/19 11:21 Sodium Chloride 0.9% [Saline Flush] 10 ml FLUSH ASDIRECTED PRN Saline Lock Insert [OM.PC] Routine - Assessment/Plan Last 24 Hours: My Active Orders 12/13/19 11:19 EKG 12 Lead [EK] Routine 12/13/19 11:20 EKG Documentation Completion [RC] ASDIRECTED 12/13/19 11:21 Sodium Chloride 0.9% [Saline Flush] 10 ml FLUSH ASDIRECTED PRN Saline Lock Insert [OM.PC] Routine Plan: I plan on increasing the patient's Lasix to 60 mg in the morning 20 mg in the evening. He should follow-up with his primary care provider in 1 week for reevaluation.
== END 2019-12-13 15:03 | disposition home or self-care (01) ==
LOC: JP.ED 10:46
DX: I11.0 Hypertensive heart disease with heart failure (principal); I50.41 Acute combined systolic (congestive) and diastolic (congestive) heart failure; I48.91 Unspecified atrial fibrillation; I25.10 Atherosclerotic heart disease of native coronary artery without angina pectoris; E78.00 Pure hypercholesterolemia, unspecified; I25.2 Old myocardial infarction; J44.9 Chronic obstructive pulmonary disease, unspecified; E11.9 Type 2 diabetes mellitus without complications; Z88.8 Allergy status to other drugs, medicaments and biological substances; Z91.048 Other nonmedicinal substance allergy status; Z79.4 Long term (current) use of insulin; Z87.891 Personal history of nicotine dependence; Z79.01 Long term (current) use of anticoagulants; Z79.02 Long term (current) use of antithrombotics/antiplatelets; Z79.899 Other long term (current) drug therapy; Z95.1 Presence of aortocoronary bypass graft
CPT/HCPCS: 36415; 71046; 71046-26; 80053; 83880; 84484; 85025; 85730; 93005; 99285-25

== ENCOUNTER 2020-05-25 10:27 | Emergency (ER) | payer BC, MEDICARE ==
[2020-05-25] MEDS ORDERED: Sodium Chloride 0.9% 10 ML Syringe FLUSH PRN (11:21)
--- NOTE | 2020-05-25 11:25 | EDM.PDOC ---
ED HPI GENERAL MEDICAL PROBLEM - General Chief Complaint: Respiratory Problem Stated Complaint: SOB Time Seen by Provider: 05/25/20 11:16 Source of Information: Reports: Patient, RN Notes Reviewed History Limitations: Reports: No Limitations - History of Present Illness INITIAL COMMENTS - FREE TEXT/NARRATIVE: 80-year-old gentleman presents emergency department a complaint of shortness of breath, he has known history of congestive heart failure usually controls it with a Lasix he states over the last couple days he has been more short of breath than usual no fevers no nausea vomiting no cough no sputum production no chest pain, he has not been vaccinated for Covid - Related Data Allergies Allergy/AdvReac Type Severity Reaction Status Date / Time Enuvimu-[id number]-Hgt Reductase Allergy Mild Fatigue Verified 05/25/20 10:48 Inhibitor cat dander Allergy Shortness Verified 05/25/20 10:48 of Breath dog dander Allergy Shortness Verified 05/25/20 10:48 of Breath house dust Allergy Wheezing Verified 05/25/20 10:48 insulin detemir Allergy Shortness Verified 05/25/20 10:48 [From Levemir U-100 Insulin] of Breath mold Allergy Wheezing Verified 05/25/20 10:48 mushroom spores Allergy Wheezing Uncoded 05/25/20 10:48 Home Meds: Home Meds Albuterol Sulfate [Ventolin Hfa] 2 puff INH Q4H PRN 08/12/16 [History] Blood-Glucose Meter [Onetouch Ultramini] 1 strip SQ ASDIRECTED 08/12/16 [History] Insulin Aspart [NovoLOG] 1 dose SQ TID 08/12/16 [History] Levothyroxine 112 mcg PO DAILY 04/13/17 [History] Furosemide 20 mg PO DAILY 02/16/18 [History] atorvaSTATin Calcium [Atorvastatin Calcium] 10 mg PO BEDTIME 02/16/18 [History] Insulin Glarg,Human.Rec.Analog [Lantus Solostar] 21 unit SUBCUT ACBREAKFAST 10/04/18 [History] Clopidogrel Bisulfate [Clopidogrel] 75 mg PO DAILY 05/10/19 [History] Metoprolol Succinate [Toprol XL] 25 mg PO DAILY 30 Days #30 tab.er 11/11/19 [Rx] Amiodarone HCl [Pacerone] 200 mg PO DAILY 05/25/20 [History] Cyanocobalamin (Vitamin B-12) [Cyanocobalamin Injection] 1,000 mcg IJ ASDIRECTED 05/25/20 [History] Rivaroxaban [Xarelto] 15 mg PO DAILY 05/25/20 [History] Past Medical History HEENT History: Reports: Cataract, Hard of Hearing, Impaired Vision, Other (See Below) Other HEENT History: strabismus Cardiovascular History: Reports: Afib, Aneurysm, Bypass, CAD, Heart Murmur, High Cholesterol, Hypertension, [place], SOB on Exertion Other Cardiovascular History: Abnormality of thoracic aorta aortic insufficienty Respiratory History: Reports: Asthma, COPD Gastrointestinal History: Reports: Other (See Below) Other Gastrointestinal History: Cholitis Genitourinary History: Reports: Other (See Below) Other Genitourinary History: urinary frequency Musculoskeletal History: Reports: Arthritis, Osteoarthritis, Other (See Below) Other Musculoskeletal History: spinal stenosis Lumbar polyneuropathy Endocrine/Metabolic History: Reports: Diabetes, Type II Other Endocrine/Metabolic History: insulin dependent Hematologic History: Reports: Anticoagulation Therapy Oncologic (Cancer) History: Reports: Squamous Cell Carcinoma, Other (See Below) Other Oncologic History: Left hand - Infectious Disease History Infectious Disease History: Reports: Chicken Pox, Measles, Mumps - Past Surgical History Head Surgeries/Procedures: Reports: None HEENT Surgical History: Reports: Tonsillectomy Cardiovascular Surgical History: Reports: Cardiac Ablation, Coronary Artery Bypass, Coronary Artery Stent Other Cardiovascular Surgeries/Procedures: Ablation 05/08/2019 Respiratory Surgical History: Reports: None GI Surgical History: Reports: Colonoscopy Male Surgical History: Reports: None Endocrine Surgical History: Reports: None Neurological Surgical History: Reports: None Musculoskeletal Surgical History: Reports: Arthroscopic Knee, Knee Replacement Other Musculoskeletal Surgeries/Procedures:: HAND SURGERY Oncologic Surgical History: Reports: None Dermatological Surgical History: Reports: None Social & Family History - Family History Family Medical History: No Pertinent Family History - Tobacco Use Tobacco Use Status *Q: Former Tobacco User Used Tobacco, but Quit: Yes Month/Year Tobacco Last Used: 60 years - Caffeine Use Caffeine Use: Reports: Coffee - Recreational Drug Use Recreational Drug Use: No ED ROS GENERAL - Review of Systems Review Of Systems: See Below Constitutional: Denies: Fever, Chills HEENT: Reports: No Symptoms Respiratory: Reports: Shortness of Breath Cardiovascular: Reports: Dyspnea on Exertion GI/Abdominal: Reports: No Symptoms ED EXAM, GENERAL - Physical Exam Exam: See Below Exam Limited By: No Limitations General Appearance: Alert, WD/WN, No Apparent Distress Respiratory/Chest: No Respiratory Distress, Chest Non-Tender, Crackles (Bases bilaterally) Cardiovascular: Regular Rate, Rhythm, No Murmur GI/Abdominal: Soft, Non-Tender Back Exam: Normal Inspection, Full Range of Motion. No: CVA Tenderness (R), CVA Tenderness (L) #1 Interpretation EKG Date: 05/25/20 Time: 10:40 Rhythm: NSR [place]: LAD-Left [place] Deviation P-Wave: Present QRS: Normal ST-T: Normal QT: Normal Comparison: No Change Course - Vital Signs Last Recorded V/S: Last Vital Signs Temp 97.3 F 05/25/20 10:42 Pulse 61 05/25/20 12:53 Resp 18 05/25/20 12:53 BP 152/67 H 05/25/20 12:53 Pulse Ox 97 05/25/20 12:53 - Orders/Labs/Meds Orders: Active Orders 24 hr Category Date Time Status Cardiac Monitoring [RC] .As Directed Care 05/25/20 11:21 Active EKG Documentation Completion [RC] ASDIRECTED Care 05/25/20 11:22 Active Peripheral IV Care [RC] . DIRECTED Care 05/25/20 11:22 Active Chest 1V Frontal [CR] Stat Exams 05/25/20 11:22 Taken Sodium Chloride 0.9% [Saline Flush] Med 05/25/20 11:21 Active 10 ml FLUSH ASDIRECTED PRN Peripheral IV Insertion Adult [OM.PC] Stat Oth 05/25/20 11:21 Ordered Saline Lock Insert [OM.PC] Stat Oth 05/25/20 11:21 Ordered EKG 12 Lead [EK] Stat Ther 05/25/20 11:21 Ordered Medication Orders Sodium Chloride (Sodium Chloride 0.9% 10 Ml Syringe) 10 ml FLUSH ASDIRECTED PRN PRN Reason: Keep Vein Open Last Admin: 05/25/20 11:59 Dose: 10 ml Documented by: VIC Labs: Laboratory Tests 05/25/20 05/25/20 05/25/20 Range/Units 11:21 11:22 11:37 WBC 3.8 L (4.5-11.0) K/uL RBC 4.11 L (4.30-5.90) M/uL Hgb 12.1 D (12.0-15.0) g/dL Hct 36.6 L (40.0-54.0) % MCV 89 (80-98) fL MCH 29 (27-31) pg MCHC 33 (32-36) % Plt Count 166 (150-400) K/uL Neut % (Auto) 76 H (36-66) % Lymph % (Auto) 11 L (24-44) % [place] % (Auto) 12 H (2-6) % Eos % (Auto) 1 L (2-4) % Baso % (Auto) 1 (0-1) % Sodium 137 L (140-148) mmol/L Potassium 4.4 (3.6-5.2) mmol/L Chloride 98 L (100-108) mmol/L Carbon Dioxide 27 (21-32) mmol/L Anion Gap 16.4 H (5.0-14.0) mmol/L BUN 19 H (7-18) mg/dL Creatinine 1.5 H (0.8-1.3) mg/dL Est Cr Clr Drug Dosing 40.44 mL/min Estimated GFR (MDRD) 45 L (>60) Glucose 216 H (74-106) mg/dL Calcium 8.4 L (8.5-10.1) mg/dL Total Bilirubin 0.7 D (0.2-1.0) mg/dL AST 24 (15-37) U/L ALT 30 (12-78) U/L Alkaline Phosphatase 81 (46-116) U/L Troponin I < 0.017 (0.000-0.056) ng/mL NT-Pro-B Natriuret Pep 1443 H (5-450) pg/mL Total Protein 6.3 L (6.4-8.2) g/dL Albumin 3.3 L (3.4-5.0) g/dL Globulin 3.0 (2.3-3.5) g/dL Albumin/Globulin Ratio 1.1 L (1.2-2.2) Influenza Type A RNA Negative (NEGATIVE) RSV RNA (INAAT) Negative (NEGATIVE) Influenza Type B RNA Negative (NEGATIVE) SARS-CoV-2 RNA (ENA) Positive H (NEGATIVE) Meds: Medications Generic Name Dose Route Start Last Admin Trade Name Freq PRN Reason Stop Dose Admin Sodium Chloride 10 ml 04/10/21 11:21 05/25/20 11:59 Sodium Chloride 0.9% 10 Ml Syringe FLUSH 10 ml ASDIRECTED PRN Administration Keep Vein Open Discontinued Medications Generic Name Dose Route Start Last Admin Trade Name Stacy PRN Reason Stop Dose Admin Furosemide 40 mg 05/25/20 12:11 Furosemide 40 Mg/4 Ml Vial IVPUSH 05/25/20 12:12 ONETIME ONE Departure - Departure Time of Disposition: 12:58 Disposition: Home, Self-Care 01 Condition: Fair Clinical Impression: COVID-19 - Discharge Information Instructions: COVID-19 Referrals: Main Cantu MD [Primary Care Provider] - Forms: ED Department Discharge Additional Instructions: The outpatient center will call you for an appointment time on Wednesday for your treatment with bamlanimab, continue to monitor your oxygen at home if you become lower than 90% oxygen please report to the emergency department for further evaluation at that time Sepsis Event Note (ED) - Evaluation Sepsis Screening Result: No Definite Risk - Focused Exam Vital Signs: Vital Signs Temp Pulse Resp BP Pulse Ox 05/25/20 12:53 61 18 152/67 H 97 05/25/20 10:42 97.3 F 68 20 151/63 H 96 - My Orders Last 24 Hours: My Active Orders 05/25/20 11:21 Cardiac Monitoring [RC] .As Directed Sodium Chloride 0.9% [Saline Flush] 10 ml FLUSH ASDIRECTED PRN Peripheral IV Insertion Adult [OM.PC] Stat Saline Lock Insert [OM.PC] Stat EKG 12 Lead [EK] Stat 05/25/20 11:22 EKG Documentation Completion [RC] ASDIRECTED Peripheral IV Care [RC] . DIRECTED Chest 1V Frontal [CR] Stat - Assessment/Plan Last 24 Hours: My Active Orders 05/25/20 11:21 Cardiac Monitoring [RC] .As Directed Sodium Chloride 0.9% [Saline Flush] 10 ml FLUSH ASDIRECTED PRN Peripheral IV Insertion Adult [OM.PC] Stat Saline Lock Insert [OM.PC] Stat EKG 12 Lead [EK] Stat 05/25/20 11:22 EKG Documentation Completion [RC] ASDIRECTED Peripheral IV Care [RC] . DIRECTED Chest 1V Frontal [CR] Stat Plan: Assessment Acuity = acute Site and laterality = viral syndrome Etiology = COVID-19 Manifestations = dyspnea Location of injury = Home Lab values = WBC low at 3.8 consistent leukopenia creatinine elevated 1.5 consistent with chronic renal failure stage G3 a troponin is negative BNP elevated 1443 consistent with fluid overload type process positive for Covid 19 - for flu or RSV Plan I did review Covid symptomology and treatment with him because his O2 saturation is 96% I felt there was not need for hospitalization at this time however I did write an order for joanie which she will be scheduled for Wednesday This note was dictated using [employer] voice recognition software please call with any questions on syntax or grammar.
[2020-05-25] MEDS ORDERED: Furosemide 40 MG/4 ML VIAL IVPUSH ONE (12:11)
[2020-05-25 12:15] LABS: CORONAVIRUS COVID-19 NAA POSITIVE (NEGATIVE)
[2020-05-25 12:53] VITALS: BP 152/67; PULSE 61
--- NOTE | 2020-05-27 09:23 | CR ---
CHEST: Portable 05/25/2020 12:10 PM CLINICAL HISTORY:Chest pain COMPARISON:2019 FINDINGS: Heart size and pulmonary vascularity are normal. There is some ill-defined patchy opacity in both upper lobes and the right lower lobe suggesting pneumonitis. There are no effusions. Patient has had previous sternotomy. IMPRESSION: Faint patchy bilateral infiltrates suggest pneumonitis
== END 2020-05-25 13:08 | disposition home or self-care (01) ==
LOC: JP.ED 10:27
DX: U07.1 COVID-19 (principal); I48.91 Unspecified atrial fibrillation; I25.10 Atherosclerotic heart disease of native coronary artery without angina pectoris; E78.00 Pure hypercholesterolemia, unspecified; I10 Essential (primary) hypertension; I25.2 Old myocardial infarction; J44.9 Chronic obstructive pulmonary disease, unspecified; E11.9 Type 2 diabetes mellitus without complications; Z88.8 Allergy status to other drugs, medicaments and biological substances; Z91.048 Other nonmedicinal substance allergy status; Z91.018 Allergy to other foods; Z79.4 Long term (current) use of insulin; Z79.02 Long term (current) use of antithrombotics/antiplatelets; Z79.899 Other long term (current) drug therapy; Z95.1 Presence of aortocoronary bypass graft; Z79.01 Long term (current) use of anticoagulants; Z87.891 Personal history of nicotine dependence
CPT/HCPCS: 0241U; 36415; 71045; 80053; 83880; 84484; 85025; 93005; 96374; 99285; J1940

== ENCOUNTER 2020-05-27 15:06 | Emergency (ER) | payer MEDICARE ==
[2020-05-27 15:23] VITALS: BP 140/58; PULSE 64
--- NOTE | 2020-05-27 16:00 | EDM.PDOC ---
ED HPI GENERAL MEDICAL PROBLEM - General Chief Complaint: Respiratory Problem Stated Complaint: COVID POSITIVE Time Seen by Provider: 05/27/20 15:52 Source of Information: Reports: Patient, RN Notes Reviewed History Limitations: Reports: No Limitations - History of Present Illness INITIAL COMMENTS - FREE TEXT/NARRATIVE: 80-year-old gentleman presents emergency department a complaint of shortness of breath shakes and body aches, he recently was diagnosed with COVID-19 underwent monoclonal antibody therapy today was at home he tolerated the procedure well was at home family called stating his O2 saturation was 70% he was having a difficult time breathing and significant body aches. However by the time he arrives emergency department he states he feels fine his oxygen saturation is in the 90% denies any body aches - Related Data Allergies Allergy/AdvReac Type Severity Reaction Status Date / Time [place]-Qxa-Llz Reductase Allergy Mild Fatigue Verified 05/27/20 15:42 Inhibitor cat dander Allergy Shortness Verified 05/27/20 15:42 of Breath dog dander Allergy Shortness Verified 05/27/20 15:42 of Breath house dust Allergy Wheezing Verified 05/27/20 15:42 insulin detemir Allergy Shortness Verified 05/27/20 15:42 [From Levemir U-100 Insulin] of Breath mold Allergy Wheezing Verified 05/27/20 15:42 mushroom spores Allergy Wheezing Uncoded 05/27/20 15:42 Home Meds: Home Meds Albuterol Sulfate [Ventolin Hfa] 2 puff INH Q4H PRN 08/12/16 [History] Blood-Glucose Meter [Onetouch Ultramini] 1 strip SQ ASDIRECTED 08/12/16 [History] Insulin Aspart [NovoLOG] 1 dose SQ TID 08/12/16 [History] Levothyroxine 112 mcg PO DAILY 04/13/17 [History] Furosemide 20 mg PO DAILY 02/16/18 [History] atorvaSTATin Calcium [Atorvastatin Calcium] 10 mg PO BEDTIME 02/16/18 [History] Insulin Glarg,Human.Rec.Analog [Lantus Solostar] 20 - 22 unit SUBCUT ACBREAKFAST 10/04/18 [History] Clopidogrel Bisulfate [Clopidogrel] 75 mg PO DAILY 05/10/19 [History] Metoprolol Succinate [Toprol XL] 25 mg PO DAILY 30 Days #30 tab.er 11/11/19 [Rx] Amiodarone HCl [Pacerone] 200 mg PO DAILY 05/25/20 [History] Cyanocobalamin (Vitamin B-12) [Cyanocobalamin Injection] 1,000 mcg IJ Q30D 05/25/20 [History] Rivaroxaban [Xarelto] 15 mg PO DAILY 05/25/20 [History] Past Medical History HEENT History: Reports: Cataract, Hard of Hearing, Impaired Vision, Other (See Below) Other HEENT History: strabismus Cardiovascular History: Reports: Afib, Aneurysm, Bypass, CAD, Heart Murmur, High Cholesterol, Hypertension, [place], SOB on Exertion Other Cardiovascular History: Abnormality of thoracic aorta aortic insufficienty Respiratory History: Reports: Asthma, COPD Gastrointestinal History: Reports: Other (See Below) Other Gastrointestinal History: Cholitis Genitourinary History: Reports: Other (See Below) Other Genitourinary History: urinary frequency Musculoskeletal History: Reports: Arthritis, Osteoarthritis, Other (See Below) Other Musculoskeletal History: spinal stenosis Lumbar polyneuropathy Endocrine/Metabolic History: Reports: Diabetes, Type II Other Endocrine/Metabolic History: insulin dependent Hematologic History: Reports: Anticoagulation Therapy Oncologic (Cancer) History: Reports: Squamous Cell Carcinoma, Other (See Below) Other Oncologic History: Left hand - Infectious Disease History Infectious Disease History: Reports: Chicken Pox, Measles, Mumps - Past Surgical History Head Surgeries/Procedures: Reports: None HEENT Surgical History: Reports: Tonsillectomy Cardiovascular Surgical History: Reports: Cardiac Ablation, Coronary Artery Bypass, Coronary Artery Stent Other Cardiovascular Surgeries/Procedures: Ablation 05/08/2019 Respiratory Surgical History: Reports: None GI Surgical History: Reports: Colonoscopy Male Surgical History: Reports: None Endocrine Surgical History: Reports: None Neurological Surgical History: Reports: None Musculoskeletal Surgical History: Reports: Arthroscopic Knee, Knee Replacement Other Musculoskeletal Surgeries/Procedures:: HAND SURGERY Oncologic Surgical History: Reports: None Dermatological Surgical History: Reports: None Social & Family History - Family History Family Medical History: No Pertinent Family History - Tobacco Use Tobacco Use Status *Q: Never Tobacco User Second Hand Smoke Exposure: No - Caffeine Use Caffeine Use: Reports: Coffee - Alcohol Use Days Per Week of Alcohol Use: 2 Number of Drinks Per Day: 2 Total Drinks Per Week: 4 - Recreational Drug Use Recreational Drug Use: No ED ROS GENERAL - Review of Systems Review Of Systems: See Below Constitutional: Reports: No Symptoms HEENT: Reports: No Symptoms Respiratory: Reports: No Symptoms Cardiovascular: Reports: No Symptoms GI/Abdominal: Reports: No Symptoms Musculoskeletal: Reports: No Symptoms ED EXAM, GENERAL - Physical Exam Exam: See Below Exam Limited By: No Limitations General Appearance: Alert, WD/WN, No Apparent Distress Respiratory/Chest: No Respiratory Distress, Lungs Clear, Normal Breath Sounds, No Accessory Muscle Use, Chest Non-Tender Cardiovascular: Regular Rate, Rhythm, No Murmur GI/Abdominal: Soft, Non-Tender Course - Vital Signs Last Recorded V/S: Last Vital Signs Temp 99.9 F 05/27/20 15:20 Pulse 64 05/27/20 15:20 Resp 24 H 05/27/20 15:20 BP 140/58 L 05/27/20 15:20 Pulse Ox 94 L 05/27/20 15:20 Departure - Departure Time of Disposition: 15:59 Disposition: Home, Self-Care 01 Condition: Fair Clinical Impression: COVID-19 - Discharge Information Instructions: COVID-19 Vaccine Information Referrals: PCP,None [Primary Care Provider] - Additional Instructions: Use Tylenol as needed for pain control, keep your regular follow-up appointments with your primary care return to the emergency department worsening of symptoms Sepsis Event Note (ED) - Evaluation Sepsis Screening Result: Possible Sepsis Risk - Focused Exam Vital Signs: Vital Signs Temp Pulse Resp BP Pulse Ox 05/27/20 15:20 99.9 F 64 24 H 140/58 L 94 L - Assessment/Plan Plan: Assessment Acuity = acute Site and laterality = possible drug reaction Etiology = monoclonal antibody therapy Manifestations = none Location of injury = Home Lab values = none Plan No treatments provided in the emergency department his vital signs have been stable plan is discharged home continue to use Tylenol as needed for pain con trol follow-up with primary care if needed This note was dictated using [email or web address] voice recognition software please call with any questions on syntax or grammar.
== END 2020-05-27 16:55 | disposition home or self-care (01) ==
LOC: JP.ED 15:06
DX: U07.1 COVID-19 (principal); I48.91 Unspecified atrial fibrillation; I25.10 Atherosclerotic heart disease of native coronary artery without angina pectoris; E78.00 Pure hypercholesterolemia, unspecified; I10 Essential (primary) hypertension; I25.2 Old myocardial infarction; J44.9 Chronic obstructive pulmonary disease, unspecified; E11.9 Type 2 diabetes mellitus without complications; Z88.8 Allergy status to other drugs, medicaments and biological substances; Z91.048 Other nonmedicinal substance allergy status; Z91.018 Allergy to other foods; Z79.4 Long term (current) use of insulin; Z79.01 Long term (current) use of anticoagulants; Z79.02 Long term (current) use of antithrombotics/antiplatelets; Z79.899 Other long term (current) drug therapy; Z95.1 Presence of aortocoronary bypass graft
CPT/HCPCS: 99284

== ENCOUNTER 2020-07-18 16:41 | Emergency (ER) | payer MEDICARE ==
[2020-07-18] MEDS ORDERED: Albuterol/Ipratropium 3.0-0.5 MG/3 ML Neb Soln NEB ONE (17:25)
--- NOTE | 2020-07-18 17:39 | EDM.PDOC ---
ED HPI GENERAL MEDICAL PROBLEM - General Chief Complaint: Respiratory Problem Stated Complaint: SOB Time Seen by Provider: 07/18/20 17:15 Source of Information: Reports: Patient, Family, Old Records History Limitations: Reports: No Limitations - History of Present Illness INITIAL COMMENTS - FREE TEXT/NARRATIVE: 80 yo male presents with SOB for a few days. He has been coughing. No SOB. No fever or chest pain. He got some relief with his albuterol MDI. Thinks he might be reacting to pollen. Breathing is fine with lying flat. Onset: Gradual Duration: Day(s):, Constant Location: Reports: Chest Quality: Reports: Other (no pain) Severity: Moderate Improves with: Reports: Medication (albuterol), Rest Worsens with: Reports: Other (? pollen) Context: Reports: Other (See HPI) Associated Symptoms: Reports: Cough, Shortness of Breath. 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: Other (see below) (none) Tooth/Teeth Pain Score (Numeric/FACES): 4 - Related Data Allergies Allergy/AdvReac Type Severity Reaction Status Date / Time Eutvjxa-Otb-Qxg Reductase Allergy Mild Fatigue Verified 05/27/20 15:42 Inhibitor cat dander Allergy Shortness Verified 05/27/20 15:42 of Breath dog dander Allergy Shortness Verified 05/27/20 15:42 of Breath house dust Allergy Wheezing Verified 05/27/20 15:42 insulin detemir Allergy Shortness Verified 05/27/20 15:42 [From Levemir U-100 Insulin] of Breath mold Allergy Wheezing Verified 05/27/20 15:42 mushroom spores Allergy Wheezing Uncoded 05/27/20 15:42 Home Meds: Home Meds Albuterol Sulfate [Ventolin Hfa] 2 puff INH Q4H PRN 08/12/16 [History] Blood-Glucose Meter [Onetouch Ultramini] 1 strip SQ ASDIRECTED 08/12/16 [History] Insulin Aspart [NovoLOG] 1 dose SQ TID 08/12/16 [History] Levothyroxine 112 mcg PO DAILY 04/13/17 [History] Furosemide 20 mg PO DAILY 02/16/18 [History] atorvaSTATin Calcium [Atorvastatin Calcium] 10 mg PO BEDTIME 02/16/18 [History] Insulin Glarg,Human.Rec.Analog [Lantus Solostar] 20 - 22 unit SUBCUT ACBREAKFAST 10/04/18 [History] Clopidogrel Bisulfate [Clopidogrel] 75 mg PO DAILY 05/10/19 [History] Metoprolol Succinate [Toprol XL] 25 mg PO DAILY 30 Days #30 tab.er 11/11/19 [Rx] Amiodarone HCl [Pacerone] 200 mg PO DAILY 05/25/20 [History] Cyanocobalamin (Vitamin B-12) [Cyanocobalamin Injection] 1,000 mcg IJ Q30D 05/25/20 [History] Rivaroxaban [Xarelto] 15 mg PO DAILY 05/25/20 [History] lisinopriL [Lisinopril] 2.5 mg PO BEDTIME 07/18/20 [History] predniSONE [Prednisone] 10 mg PO BID #10 tablet 07/18/20 [Rx] Past Medical History HEENT History: Reports: Cataract, Hard of Hearing, Impaired Vision, Other (See Below) Other HEENT History: strabismus Cardiovascular History: Reports: Afib, Aneurysm, Bypass, CAD, Heart Murmur, High Cholesterol, Hypertension, [place], SOB on Exertion Other Cardiovascular History: Abnormality of thoracic aorta aortic insufficienty Respiratory History: Reports: Asthma, COPD Gastrointestinal History: Reports: Other (See Below) Other Gastrointestinal History: Cholitis Genitourinary History: Reports: Other (See Below) Other Genitourinary History: urinary frequency Musculoskeletal History: Reports: Arthritis, Osteoarthritis, Other (See Below) Other Musculoskeletal History: spinal stenosis Lumbar polyneuropathy Endocrine/Metabolic History: Reports: Diabetes, Type II Other Endocrine/Metabolic History: insulin dependent Hematologic History: Reports: Anticoagulation Therapy Oncologic (Cancer) History: Reports: Squamous Cell Carcinoma, Other (See Below) Other Oncologic History: Left hand - Infectious Disease History Infectious Disease History: Reports: Chicken Pox, Measles, Mumps - Past Surgical History Head Surgeries/Procedures: Reports: None HEENT Surgical History: Reports: Tonsillectomy Cardiovascular Surgical History: Reports: Cardiac Ablation, Coronary Artery Bypass, Coronary Artery Stent Other Cardiovascular Surgeries/Procedures: Ablation 05/08/2019 Respiratory Surgical History: Reports: None GI Surgical History: Reports: Colonoscopy Male Surgical History: Reports: None Endocrine Surgical History: Reports: None Neurological Surgical History: Reports: None Musculoskeletal Surgical History: Reports: Arthroscopic Knee, Knee Replacement Other Musculoskeletal Surgeries/Procedures:: HAND SURGERY Oncologic Surgical History: Reports: None Dermatological Surgical History: Reports: None Social & Family History - Family History Family Medical History: No Pertinent Family History - Tobacco Use Tobacco Use Status *Q: Never Tobacco User - Caffeine Use Caffeine Use: Reports: Coffee ED ROS GENERAL - Review of Systems Review Of Systems: See Below Constitutional: Denies: Fever, Chills HEENT: Reports: Rhinitis Respiratory: Reports: Shortness of Breath, Cough. Denies: Wheezing, Pleuritic Chest Pain, Sputum, Hemoptysis Cardiovascular: Reports: Dyspnea on Exertion. Denies: Orthopnea, Palpitations GI/Abdominal: Reports: No Symptoms : Reports: No Symptoms Musculoskeletal: Reports: No Symptoms Skin: Reports: No Symptoms Neurological: Reports: No Symptoms ED EXAM, GENERAL - Physical Exam Exam: See Below Exam Limited By: No Limitations General Appearance: Alert, WD/WN, No Apparent Distress Eye Exam: Bilateral Eye: EOMI, Normal Inspection, PERRL Ears: Normal External Exam, Normal Canal, Hearing Grossly Normal Ear Exam: Bilateral Ear: Auricle Normal, Canal Normal Nose: Normal Inspection, No Blood Throat/Mouth: Normal Inspection, Normal Lips, Normal Oropharynx, Normal Voice, No Airway Compromise Head: Atraumatic, Normocephalic Neck: Normal Inspection Respiratory/Chest: No Respiratory Distress, Lungs Clear, No Accessory Muscle Use, Decreased Breath Sounds. No: Rales, Rhonchi, Wheezing Cardiovascular: Regular Rate, Rhythm, No Edema Extremities: Normal Inspection, Normal Range of Motion, Non-Tender, No Pedal Edema. No: Pedal Edema Neurological: Alert, Oriented, CN II-XII Intact, Normal Cognition, No Motor/Sensory Deficits Psychiatric: Normal Affect, Normal Mood Skin Exam: Warm, Dry, Intact, Normal Color, No Rash Course - Vital Signs Last Recorded V/S: Last Vital Signs Temp 36.1 C 07/18/20 16:59 Pulse 49 L 07/18/20 17:48 Resp 13 07/18/20 17:48 BP 108/46 L 07/18/20 17:48 Pulse Ox 97 07/18/20 17:48 - Orders/Labs/Meds Orders: Active Orders 24 hr Category Date Time Status Cardiac Monitoring [RC] .As Directed Care 07/18/20 16:48 Active RT Aerosol Therapy [RC] ASDIRECTED Care 07/18/20 17:25 Active Meds: Medications Discontinued Medications Generic Name Dose Route Start Last Admin Trade Name Stacy PRN Reason Stop Dose Admin Albuterol/Ipratropium 3 ml 07/18/20 17:25 07/18/20 17:31 Albuterol/Ipratropium 3.0-0.5 Mg/3 Ml Neb Soln NEB 07/18/20 17:26 3 ml ONETIME ONE Administration Prednisone 20 mg 07/18/20 17:53 Prednisone 20 Mg Tab PO 07/18/20 17:54 ONETIME ONE - Re-Assessments/Exams Free Text/Narrative Re-Assessment/Exam: 07/18/20 17:56 Feels better after Duoneb, breath sounds not changed much. Departure - Departure Time of Disposition: 17:55 Disposition: Home, Self-Care 01 Condition: Good Clinical Impression: Bronchospasm - Discharge Information *PRESCRIPTION DRUG MONITORING PROGRAM REVIEWED*: Not Applicable *COPY OF PRESCRIPTION DRUG MONITORING REPORT IN PATIENT TONY: Not Applicable Prescriptions: predniSONE [Prednisone] 10 mg PO BID #10 tablet Instructions: Bronchospasm, Adult Referrals: Main Cantu MD [Primary Care Provider] - Forms: ED Department Discharge Additional Instructions: Take the prednisone as directed with food. Use your albuterol inhaler as needed. F/U with your provider for recheck. Sepsis Event Note (ED) - Evaluation Sepsis Screening Result: No Definite Risk - Focused Exam Vital Signs: Vital Signs Temp Pulse Resp BP Pulse Ox 07/18/20 17:48 49 L 13 108/46 L 97 07/18/20 17:20 50 L 9 L 81/61 L 98 07/18/20 16:59 36.1 C 56 L 138/48 L 98 07/18/20 16:55 36.1 C 56 L 18 138/48 L 98 - My Orders Last 24 Hours: My Active Orders 07/18/20 16:48 Cardiac Monitoring [RC] .As Directed 07/18/20 17:25 RT Aerosol Therapy [RC] ASDIRECTED - Assessment/Plan Last 24 Hours: My Active Orders 07/18/20 16:48 Cardiac Monitoring [RC] .As Directed 07/18/20 17:25 RT Aerosol Therapy [RC] ASDIRECTED
[2020-07-18 17:49] VITALS: BP 108/46; PULSE 49
[2020-07-18] MEDS ORDERED: predniSONE 20 MG Tab PO ONE (17:53)
== END 2020-07-18 18:06 | disposition home or self-care (01) ==
LOC: JP.ED 16:41
DX: J98.01 Acute bronchospasm (principal); I48.91 Unspecified atrial fibrillation; I25.10 Atherosclerotic heart disease of native coronary artery without angina pectoris; E78.00 Pure hypercholesterolemia, unspecified; I10 Essential (primary) hypertension; I25.2 Old myocardial infarction; J44.9 Chronic obstructive pulmonary disease, unspecified; E11.42 Type 2 diabetes mellitus with diabetic polyneuropathy; Z79.02 Long term (current) use of antithrombotics/antiplatelets; Z88.8 Allergy status to other drugs, medicaments and biological substances; Z91.048 Other nonmedicinal substance allergy status; Z91.018 Allergy to other foods; Z79.4 Long term (current) use of insulin; Z79.01 Long term (current) use of anticoagulants; Z79.899 Other long term (current) drug therapy; Z95.1 Presence of aortocoronary bypass graft
CPT/HCPCS: 94640; 99284; J7512; J7620-GY

== ENCOUNTER 2020-09-26 11:16 | Emergency (ER) | payer MEDICARE ==
[2020-09-26] MEDS ORDERED: Diphtheria,Pertussis(Acell),Tetanus Vaccine 0.5 ML Syringe IM ONE (11:53)
[2020-09-26] MEDS ORDERED: Bacitracin Oint 1 GM U/D Packet TOP ONE (11:53)
[2020-09-26] MEDS ORDERED: Amoxicillin/Clavulanate K 875-125 MG Tab PO ONE (11:53)
[2020-09-26 11:57] VITALS: BP 148/48; PULSE 53
--- NOTE | 2020-09-26 11:59 | EDM.PDOC ---
ED HPI GENERAL MEDICAL PROBLEM - General Chief Complaint: Bite:Animal, Insect Stated Complaint: DOG BITE [facility]IA [place] Time Seen by Provider: 09/26/20 11:45 Source of Information: Reports: Patient, EMS, Old Records History Limitations: Reports: No Limitations - History of Present Illness INITIAL COMMENTS - FREE TEXT/NARRATIVE: 80 yo male arrives via EMS after a dog bite to the L hand. No other injuries. Is due for tetanus. Is unsure about rabies status of dog that bit him, the police area working on finding this out currently. Onset: Today, Sudden Onset Date: 09/26/20 Duration: Minutes: Location: Reports: Upper Extremity, Left Quality: Reports: Dull Severity: Mild Improves with: Reports: None Worsens with: Reports: None Context: Reports: Trauma Associated Symptoms: Reports: No Other Symptoms Treatments PAY CLERK: Reports: Other (see below) (hand wrapped by EMS) - Related Data Allergies Allergy/AdvReac Type Severity Reaction Status Date / Time [id number]-Iwp-Vox Reductase Allergy Mild Fatigue Verified 05/27/20 15:42 Inhibitor cat dander Allergy Shortness Verified 05/27/20 15:42 of Breath dog dander Allergy Shortness Verified 05/27/20 15:42 of Breath house dust Allergy Wheezing Verified 05/27/20 15:42 insulin detemir Allergy Shortness Verified 05/27/20 15:42 [From Levemir U-100 Insulin] of Breath mold Allergy Wheezing Verified 05/27/20 15:42 mushroom spores Allergy Wheezing Uncoded 05/27/20 15:42 Home Meds: Home Meds Albuterol Sulfate [Ventolin Hfa] 2 puff INH Q4H PRN 08/12/16 [History] Blood-Glucose Meter [Onetouch Ultramini] 1 strip SQ ASDIRECTED 08/12/16 [History] Insulin Aspart [NovoLOG] 1 dose SQ TID 08/12/16 [History] Levothyroxine 112 mcg PO DAILY 04/13/17 [History] Furosemide 20 mg PO DAILY 02/16/18 [History] atorvaSTATin Calcium [Atorvastatin Calcium] 10 mg PO BEDTIME 02/16/18 [History] Insulin Glarg,Human.Rec.Analog [Lantus Solostar] 20 - 22 unit SUBCUT ACBREAKFAST 10/04/18 [History] Clopidogrel Bisulfate [Clopidogrel] 75 mg PO DAILY 05/10/19 [History] Metoprolol Succinate [Toprol XL] 25 mg PO DAILY 30 Days #30 tab.er 11/11/19 [Rx] Amiodarone HCl [Pacerone] 200 mg PO DAILY 05/25/20 [History] Cyanocobalamin (Vitamin B-12) [Cyanocobalamin Injection] 1,000 mcg IJ Q30D 05/25/20 [History] Rivaroxaban [Xarelto] 15 mg PO DAILY 05/25/20 [History] lisinopriL [Lisinopril] 2.5 mg PO BEDTIME 07/18/20 [History] predniSONE [Prednisone] 10 mg PO BID #10 tablet 07/18/20 [Rx] Amoxicillin/Potassium Clav [Augmentin 875-125 Tablet] 1 each PO Q12H #5 tablet 09/26/20 [Rx] Past Medical History HEENT History: Reports: Cataract, Hard of Hearing, Impaired Vision, Other (See Below) Other HEENT History: strabismus Cardiovascular History: Reports: Afib, Aneurysm, Bypass, CAD, Heart Murmur, High Cholesterol, Hypertension, [place], SOB on Exertion Other Cardiovascular History: Abnormality of thoracic aorta aortic insufficienty Respiratory History: Reports: Asthma, COPD Gastrointestinal History: Reports: Other (See Below) Other Gastrointestinal History: Cholitis Genitourinary History: Reports: Other (See Below) Other Genitourinary History: urinary frequency Musculoskeletal History: Reports: Arthritis, Osteoarthritis, Other (See Below) Other Musculoskeletal History: spinal stenosis Lumbar polyneuropathy Endocrine/Metabolic History: Reports: Diabetes, Type II Other Endocrine/Metabolic History: insulin dependent Hematologic History: Reports: Anticoagulation Therapy Oncologic (Cancer) History: Reports: Squamous Cell Carcinoma, Other (See Below) Other Oncologic History: Left hand - Infectious Disease History Infectious Disease History: Reports: Chicken Pox, Measles, Mumps - Past Surgical History Head Surgeries/Procedures: Reports: None HEENT Surgical History: Reports: Tonsillectomy Cardiovascular Surgical History: Reports: Cardiac Ablation, Coronary Artery Bypass, Coronary Artery Stent Other Cardiovascular Surgeries/Procedures: Ablation 05/08/2019 Respiratory Surgical History: Reports: None GI Surgical History: Reports: Colonoscopy Male Surgical History: Reports: None Endocrine Surgical History: Reports: None Neurological Surgical History: Reports: None Musculoskeletal Surgical History: Reports: Arthroscopic Knee, Knee Replacement Other Musculoskeletal Surgeries/Procedures:: HAND SURGERY Oncologic Surgical History: Reports: None Dermatological Surgical History: Reports: None Social & Family History - Family History Family Medical History: No Pertinent Family History - Tobacco Use Tobacco Use Status *Q: Never Tobacco User - Caffeine Use Caffeine Use: Reports: Coffee - Alcohol Use Days Per Week of Alcohol Use: 1 Number of Drinks Per Day: 1 Total Drinks Per Week: 1 - Recreational Drug Use Recreational Drug Use: No ED ROS GENERAL - Review of Systems Review Of Systems: See Below Constitutional: Reports: No Symptoms Skin: Reports: Wound (puncture wound to dorsum of L hand) Neurological: Reports: No Symptoms ED EXAM, ANIMAL BITE - Physical Exam Exam: See Below Exam Limited By: No Limitations General Appearance: Alert, WD/WN, No Apparent Distress Ears: Hearing Loss Extremities: Normal Inspection Neurological: Alert, Oriented, CN II-XII Intact, Normal Cognition, No Motor/Sensory Deficits Psychiatric: Normal Affect, Normal Mood Skin Exam: Normal Color, Warm/Dry, Ecchymosis, Other (abrasion dorsum of left hand, some brusing noted. ) Course - Vital Signs Text/Narrative:: Wound cleaned and dressed by RN Last Recorded V/S: Last Vital Signs Temp 36.6 C 09/26/20 11:37 Pulse 53 L 09/26/20 11:54 Resp 18 09/26/20 11:37 BP 148/48 H 09/26/20 11:37 Pulse Ox 97 09/26/20 11:20 - Orders/Labs/Meds Orders: Active Orders 24 hr Category Date Time Status Vaccines to be Administered [RC] PER UNIT ROUTINE Care 09/26/20 11:53 Active Meds: Medications Discontinued Medications Generic Name Dose Route Start Last Admin Trade Name Stacy PRN Reason Stop Dose Admin Amoxicillin/Clavulanate Potassium 1 tab 09/26/20 11:53 09/26/20 12:09 Amoxicillin/Clavulanate K 875-125 Mg Tab PO 09/26/20 11:54 1 tab ONETIME ONE Administration Bacitracin 1 dose 09/26/20 11:53 09/26/20 12:11 Bacitracin Oint 1 Gm U/D Packet TOP 09/26/20 11:54 1 dose ONETIME ONE Administration Diphtheria/Tetanus/Acell Pertussis 0.5 ml 09/26/20 11:53 09/26/20 12:09 Diphtheria,Pertussis(Acell),Tetanus Vaccine 0.5 Ml Syringe IM 09/26/20 11:54 0.5 ml .ONCE ONE Administration Departure - Departure Time of Disposition: 12:54 Disposition: Home, Self-Care 01 Condition: Good Clinical Impression: Dog bite of left hand Qualifiers: Encounter type: initial encounter Qualified Code(s): S61.452A - Open bite of left hand, initial encounter - Discharge Information *PRESCRIPTION DRUG MONITORING PROGRAM REVIEWED*: Not Applicable *COPY OF PRESCRIPTION DRUG MONITORING REPORT IN PATIENT TONY: Not Applicable Prescriptions: Amoxicillin/Potassium Clav [Augmentin 875-125 Tablet] 1 each PO Q12H #5 tablet Instructions: Animal Bite, Adult, [id number] Referrals: PCP,None [Primary Care Provider] - Forms: ED Department Discharge Additional Instructions: Clean wound twice daily with soap and water. Dry. Apply antibiotic ointment and a new dressing. Take Augmentin every 12 hrs with food until gone. Recheck for signs of infection. Return if you find out that the dog that bit you is not UTD on his rabies vaccines. Sepsis Event Note (ED) - Focused Exam Vital Signs: Vital Signs Temp Pulse Resp BP Pulse Ox 09/26/20 11:54 53 L 09/26/20 11:37 36.6 C 53 L 18 148/48 H 09/26/20 11:20 36.4 C 54 L 16 139/55 L 97 - My Orders Last 24 Hours: My Active Orders 09/26/20 11:53 Vaccines to be Administered [RC] PER UNIT ROUTINE - Assessment/Plan Last 24 Hours: My Active Orders 09/26/20 11:53 Vaccines to be Administered [RC] PER UNIT ROUTINE
== END 2020-09-26 13:22 | disposition home or self-care (01) ==
LOC: JP.ED 11:16
DX: S61.452A Open bite of left hand, initial encounter (principal); I10 Essential (primary) hypertension; J44.9 Chronic obstructive pulmonary disease, unspecified; I25.2 Old myocardial infarction; E11.9 Type 2 diabetes mellitus without complications; I48.91 Unspecified atrial fibrillation; Z23 Encounter for immunization; Z88.8 Allergy status to other drugs, medicaments and biological substances; Z91.09 Other allergy status, other than to drugs and biological substances; Z91.048 Other nonmedicinal substance allergy status; Z91.018 Allergy to other foods; Z79.4 Long term (current) use of insulin; Z79.02 Long term (current) use of antithrombotics/antiplatelets; Z79.01 Long term (current) use of anticoagulants; W54.0XXA Bitten by dog, initial encounter
CPT/HCPCS: 90471; 90715; 99284; A9270

== ENCOUNTER 2020-10-15 10:19 | Emergency (ER) | payer MEDICARE ==
[2020-10-15 10:48] VITALS: BP 117/54; PULSE 60
--- NOTE | 2020-10-15 11:14 | EDM.PDOC ---
ED HPI GENERAL MEDICAL PROBLEM - General Chief Complaint: Cardiovascular Problem Stated Complaint: BLOOD PRESSURE WAS PRETTY LOW Time Seen by Provider: 10/15/20 10:55 Source of Information: Reports: Patient, Old Records, RN History Limitations: Reports: Other (patient is a very bad historian) - History of Present Illness INITIAL COMMENTS - FREE TEXT/NARRATIVE: 80 yo male is sent into the ER from his assisted living facility for low BP with some light-headedness with standing. Has some chronic loose stools, but otherwise denies black or bloody stools. No Vomiting or fever. Has not taken extra of any of his BP meds. His primary is Dr. Cantu and he sees cardiology in [place]. Has an appt with cardiology in about a week. 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: Reports: Other (see below) (was given some salt and water at his residence.) - Related Data Allergies Allergy/AdvReac Type Severity Reaction Status Date / Time Jbojlrg-Lep-Klr Reductase Allergy Mild Fatigue Verified 10/15/20 10:31 Inhibitor cat dander Allergy Shortness Verified 10/15/20 10:31 of Breath dog dander Allergy Shortness Verified 10/15/20 10:31 of Breath house dust Allergy Wheezing Verified 10/15/20 10:31 insulin detemir Allergy Shortness Verified 10/15/20 10:31 [From Levemir U-100 Insulin] of Breath mold Allergy Wheezing Verified 10/15/20 10:31 mushroom spores Allergy Wheezing Uncoded 10/15/20 10:31 Home Meds: Home Meds Albuterol Sulfate [Ventolin Hfa] 2 puff INH Q4H PRN 08/12/16 [History] Blood-Glucose Meter [Onetouch Ultramini] 1 strip SQ ASDIRECTED 08/12/16 [History] Insulin Aspart [NovoLOG] 1 dose SQ TID 08/12/16 [History] Levothyroxine 112 mcg PO DAILY 04/13/17 [History] Furosemide 20 mg PO BID 02/16/18 [History] atorvaSTATin Calcium [Atorvastatin Calcium] 10 mg PO BEDTIME 02/16/18 [History] Insulin Glarg,Human.Rec.Analog [Lantus Solostar] 25 unit SUBCUT ACBREAKFAST 10/04/18 [History] Clopidogrel Bisulfate [Clopidogrel] 75 mg PO DAILY 05/10/19 [History] Metoprolol Succinate [Toprol XL] 25 mg PO DAILY 30 Days #30 tab.er 11/11/19 [Rx] Amiodarone HCl [Pacerone] 200 mg PO DAILY 05/25/20 [History] Cyanocobalamin (Vitamin B-12) [Cyanocobalamin Injection] 1,000 mcg IJ Q30D 05/25/20 [History] Rivaroxaban [Xarelto] 15 mg PO DAILY 05/25/20 [History] lisinopriL [Lisinopril] 2.5 mg PO BEDTIME 07/18/20 [History] Aspirin [Children's Aspirin] 1 tab PO DAILY 10/15/20 [History] Past Medical History HEENT History: Reports: Cataract, Hard of Hearing, Impaired Vision, Other (See Below) Other HEENT History: strabismus Cardiovascular History: Reports: Afib, Aneurysm, Bypass, CAD, Heart Murmur, High Cholesterol, Hypertension, [place], SOB on Exertion Other Cardiovascular History: Abnormality of thoracic aorta aortic insufficienty Respiratory History: Reports: Asthma, COPD Gastrointestinal History: Reports: Other (See Below) Other Gastrointestinal History: Cholitis Genitourinary History: Reports: Other (See Below) Other Genitourinary History: urinary frequency Musculoskeletal History: Reports: Arthritis, Osteoarthritis, Other (See Below) Other Musculoskeletal History: spinal stenosis Lumbar polyneuropathy Endocrine/Metabolic History: Reports: Diabetes, Type II Other Endocrine/Metabolic History: insulin dependent Hematologic History: Reports: Anticoagulation Therapy Oncologic (Cancer) History: Reports: Squamous Cell Carcinoma, Other (See Below) Other Oncologic History: Left hand - Infectious Disease History Infectious Disease History: Reports: Chicken Pox, Measles, Mumps - Past Surgical History Head Surgeries/Procedures: Reports: None HEENT Surgical History: Reports: Tonsillectomy Cardiovascular Surgical History: Reports: Cardiac Ablation, Coronary Artery Bypass, Coronary Artery Stent Other Cardiovascular Surgeries/Procedures: Ablation 05/08/2019 Respiratory Surgical History: Reports: None GI Surgical History: Reports: Colonoscopy Male Surgical History: Reports: None Endocrine Surgical History: Reports: None Neurological Surgical History: Reports: None Musculoskeletal Surgical History: Reports: Arthroscopic Knee, Knee Replacement Other Musculoskeletal Surgeries/Procedures:: HAND SURGERY Oncologic Surgical History: Reports: None Dermatological Surgical History: Reports: None Social & Family History - Family History Family Medical History: No Pertinent Family History - Tobacco Use Tobacco Use Status *Q: Never Tobacco User - Caffeine Use Caffeine Use: Reports: Coffee ED ROS GENERAL - Review of Systems Review Of Systems: See Below Constitutional: Reports: No Symptoms HEENT: Reports: No Symptoms Respiratory: Reports: No Symptoms Cardiovascular: Reports: Lightheadedness Endocrine: Reports: No Symptoms GI/Abdominal: Reports: No Symptoms : Reports: No Symptoms Musculoskeletal: Reports: No Symptoms Skin: Reports: No Symptoms Neurological: Reports: No Symptoms Psychiatric: Reports: No Symptoms ED EXAM, GENERAL - Physical Exam Exam: See Below Exam Limited By: No Limitations General Appearance: Alert, WD/WN, No Apparent Distress Eye Exam: Bilateral Eye: Normal Inspection Ears: Normal External Exam, Normal Canal, Hearing Loss. No: Hearing Grossly Normal Ear Exam: Bilateral Ear: Auricle Normal, Canal Normal Nose: Normal Inspection, No Blood Throat/Mouth: Normal Inspection, Normal Lips, Normal Oropharynx, Normal Voice, No Airway Compromise Head: Atraumatic, Normocephalic Neck: Normal Inspection Respiratory/Chest: No Respiratory Distress, Lungs Clear, Normal Breath Sounds, No Accessory Muscle Use Cardiovascular: Regular Rate, Rhythm, No Edema GI/Abdominal: Normal Bowel Sounds, Soft, Non-Tender, No Distention. No: Distended Back Exam: Normal Inspection. No: CVA Tenderness (R), CVA Tenderness (L) Extremities: Normal Inspection, Normal Range of Motion, Non-Tender, No Pedal Edema Neurological: Alert, Oriented, CN II-XII Intact, Normal Cognition, No Motor/Sensory Deficits Psychiatric: Normal Affect, Normal Mood Skin Exam: Warm, Dry, Intact, Normal Color, No Rash Course - Vital Signs Text/Narrative:: Orthostats normal Last Recorded V/S: Last Vital Signs Temp 36.6 C 10/15/20 10:47 Pulse 60 10/15/20 10:47 Resp 16 10/15/20 10:47 BP 117/54 L 10/15/20 10:47 Pulse Ox 98 10/15/20 10:47 Orthostatic Blood Pressure [ 120/57 Standing] Orthostatic Blood Pressure [ 115/63 Sitting] Orthostatic Blood Pressure [ 118/57 Supine] - Orders/Labs/Meds Orders: Active Orders 24 hr Category Date Time Status Orthostatic Vital Signs [RC] ASDIRECTED Care 10/15/20 11:08 Active Labs: Laboratory Tests 10/15/20 Range/Units 11:27 Urine Color Yellow (YELLOW) Urine Appearance Clear (CLEAR) Urine pH 5.5 (5.0-8.0) Ur Specific [place] 1.015 (1.008-1.030) Urine Protein Negative (NEGATIVE) mg/dL Urine Glucose (UA) Negative (NEGATIVE) mg/dL Urine Ketones Negative (NEGATIVE) mg/dL Urine Occult Blood Negative (NEGATIVE) Urine Nitrite Negative (NEGATIVE) Urine Bilirubin Negative (NEGATIVE) Urine Urobilinogen 0.2 (0.2-1.0) EU/dL Ur Leukocyte Esterase Negative (NEGATIVE) Urine RBC Not seen (0-5) Urine WBC Not seen (0-5) Ur Epithelial Cells Not seen Amorphous Sediment Rare Urine Bacteria Not seen Urine Mucus Not seen - Re-Assessments/Exams Free Text/Narrative Re-Assessment/Exam: 10/15/20 12:07 BP OK here, not dehydrated. Departure - Departure Time of Disposition: 12:08 Disposition: Home, Self-Care 01 Condition: Good Clinical Impression: Normal blood pressure Referrals: Main Cantu MD [Primary Care Provider] - Forms: ED Department Discharge Additional Instructions: Continue your current medications. Drink ample fluids. Get up from sitting to standing slowly to avoid light-headedness. F/U with your provider. Sepsis Event Note (ED) - Evaluation Sepsis Screening Result: No Definite Risk - Focused Exam Vital Signs: Vital Signs Temp Pulse Resp BP Pulse Ox 10/15/20 10:47 36.6 C 60 16 117/54 L 98 - My Orders Last 24 Hours: My Active Orders 10/15/20 11:08 Orthostatic Vital Signs [RC] ASDIRECTED - Assessment/Plan Last 24 Hours: My Active Orders 10/15/20 11:08 Orthostatic Vital Signs [RC] ASDIRECTED
== END 2020-10-15 12:36 | disposition home or self-care (01) ==
LOC: JP.ED 10:19
DX: I10 Essential (primary) hypertension (principal); I48.91 Unspecified atrial fibrillation; I25.10 Atherosclerotic heart disease of native coronary artery without angina pectoris; E78.00 Pure hypercholesterolemia, unspecified; I25.2 Old myocardial infarction; J44.9 Chronic obstructive pulmonary disease, unspecified; M19.90 Unspecified osteoarthritis, unspecified site; E11.9 Type 2 diabetes mellitus without complications; Z88.8 Allergy status to other drugs, medicaments and biological substances; Z91.048 Other nonmedicinal substance allergy status; Z88.7 Allergy status to serum and vaccine; Z91.018 Allergy to other foods; Z79.4 Long term (current) use of insulin; Z79.02 Long term (current) use of antithrombotics/antiplatelets; Z79.82 Long term (current) use of aspirin; Z79.01 Long term (current) use of anticoagulants; Z79.899 Other long term (current) drug therapy
CPT/HCPCS: 81001; 99284

== ENCOUNTER 2020-10-23 14:45 | Emergency (ER) | payer MEDICARE ==
[2020-10-23] MEDS ORDERED: Aspirin 81 MG Tab.Chew PO ONE (14:54)
[2020-10-23] MEDS ORDERED: Sodium Chloride 0.9% 10 ML Syringe FLUSH PRN (14:54)
--- NOTE | 2020-10-23 15:13 | EDM.PDOC ---
ED HPI GENERAL MEDICAL PROBLEM - General Chief Complaint: Cardiovascular Problem Stated Complaint: MEDICAL Time Seen by Provider: 10/23/20 14:53 Source of Information: Reports: Patient, Provider, RN Notes Reviewed History Limitations: Reports: No Limitations - History of Present Illness INITIAL COMMENTS - FREE TEXT/NARRATIVE: 80-year-old gentleman known history of coronary artery disease was in rehab today to spitting with the program developed chest pain was given 1 nitro by nursing staff became diaphoretic and then had a syncopal event nursing staff reports that he was unconscious for a brief moment [facility] was called. I did report to the [facility] by the time I arrived IV was in place he was diaphoretic however he was communicating well on the floor he had a sinus rhythm on the monitor he was able to sit up and get onto the hospital gurney was transferred to the emergency room for a for further evaluation., Denies any chest pain nausea vomiting shortness of breath at this time - Related Data Allergies Allergy/AdvReac Type Severity Reaction Status Date / Time Raimiav-Lab-Yll Reductase Allergy Mild Fatigue Verified 10/23/20 15:06 Inhibitor cat dander Allergy Shortness Verified 10/23/20 15:06 of Breath dog dander Allergy Shortness Verified 10/23/20 15:06 of Breath house dust Allergy Wheezing Verified 10/23/20 15:06 insulin detemir Allergy Shortness Verified 10/23/20 15:06 [From Levemir U-100 Insulin] of Breath mold Allergy Wheezing Verified 10/23/20 15:06 mushroom spores Allergy Wheezing Uncoded 10/23/20 15:06 Home Meds: Home Meds Albuterol Sulfate [Ventolin Hfa] 2 puff INH Q4H PRN 08/12/16 [History] Blood-Glucose Meter [ABStouch Ultramini] 1 strip SQ ASDIRECTED 08/12/16 [History] Insulin Aspart [NovoLOG] 1 dose SQ TID 08/12/16 [History] Levothyroxine 112 mcg PO DAILY 04/13/17 [History] Furosemide 20 mg PO BID 02/16/18 [History] atorvaSTATin Calcium [Atorvastatin Calcium] 10 mg PO BEDTIME 02/16/18 [History] Insulin Glarg,Human.Rec.Analog [Lantus Solostar] 25 unit SUBCUT ACBREAKFAST 10/04/18 [History] Clopidogrel Bisulfate [Clopidogrel] 75 mg PO DAILY 05/10/19 [History] Metoprolol Succinate [Toprol XL] 25 mg PO DAILY 30 Days #30 tab.er 11/11/19 [Rx] Amiodarone HCl [Pacerone] 200 mg PO DAILY 05/25/20 [History] Cyanocobalamin (Vitamin B-12) [Cyanocobalamin Injection] 1,000 mcg IJ Q30D 05/25/20 [History] Rivaroxaban [Xarelto] 15 mg PO DAILY 05/25/20 [History] lisinopriL [Lisinopril] 2.5 mg PO BEDTIME 07/18/20 [History] Aspirin [Children's Aspirin] 1 tab PO DAILY 10/15/20 [History] Past Medical History HEENT History: Reports: Cataract, Hard of Hearing, Impaired Vision, Other (See Below) Other HEENT History: strabismus Cardiovascular History: Reports: Afib, Aneurysm, Bypass, CAD, Heart Murmur, High Cholesterol, Hypertension, [place], SOB on Exertion Other Cardiovascular History: Abnormality of thoracic aorta aortic insufficienty Respiratory History: Reports: Asthma, COPD Gastrointestinal History: Reports: Other (See Below) Other Gastrointestinal History: Cholitis Genitourinary History: Reports: Other (See Below) Other Genitourinary History: urinary frequency Musculoskeletal History: Reports: Arthritis, Osteoarthritis, Other (See Below) Other Musculoskeletal History: spinal stenosis Lumbar polyneuropathy Endocrine/Metabolic History: Reports: Diabetes, Type II Other Endocrine/Metabolic History: insulin dependent Hematologic History: Reports: Anticoagulation Therapy Oncologic (Cancer) History: Reports: Squamous Cell Carcinoma, Other (See Below) Other Oncologic History: Left hand - Infectious Disease History Infectious Disease History: Reports: Chicken Pox, Measles, Mumps - Past Surgical History Head Surgeries/Procedures: Reports: None HEENT Surgical History: Reports: Tonsillectomy Cardiovascular Surgical History: Reports: Cardiac Ablation, Coronary Artery Bypass, Coronary Artery Stent Other Cardiovascular Surgeries/Procedures: Ablation 05/08/2019 Respiratory Surgical History: Reports: None GI Surgical History: Reports: Colonoscopy Male Surgical History: Reports: None Endocrine Surgical History: Reports: None Neurological Surgical History: Reports: None Musculoskeletal Surgical History: Reports: Arthroscopic Knee, Knee Replacement Other Musculoskeletal Surgeries/Procedures:: HAND SURGERY Oncologic Surgical History: Reports: None Dermatological Surgical History: Reports: None Social & Family History - Family History Family Medical History: No Pertinent Family History - Caffeine Use Caffeine Use: Reports: Coffee ED ROS GENERAL - Review of Systems Review Of Systems: See Below Constitutional: Reports: Diaphoresis Respiratory: Reports: No Symptoms Cardiovascular: Reports: Chest Pain, Syncope GI/Abdominal: Reports: No Symptoms ED EXAM, GENERAL - Physical Exam Exam: See Below Exam Limited By: No Limitations General Appearance: Alert, Mild Distress Respiratory/Chest: No Respiratory Distress, Lungs Clear, Normal Breath Sounds, No Accessory Muscle Use, Chest Non-Tender Cardiovascular: Regular Rate, Rhythm, No Murmur GI/Abdominal: Soft, Non-Tender Extremities: No Pedal Edema #1 Interpretation EKG Date: 10/23/20 Time: 15:26 Rhythm: NSR [place]: Normal P-Wave: Present QRS: Normal ST-T: Normal QT: Normal Comparison: Change From Previous EKG Course - Vital Signs Last Recorded V/S: Last Vital Signs Temp 95.9 F L 10/23/20 14:59 Pulse 47 L 10/23/20 17:52 Resp 12 10/23/20 17:52 BP 135/70 10/23/20 17:52 Pulse Ox 99 10/23/20 17:52 - Orders/Labs/Meds Orders: Active Orders 24 hr Category Date Time Status Cardiac Monitoring [RC] .As Directed Care 10/23/20 14:54 Active Sodium Chloride 0.9% [Saline Flush] Med 10/23/20 14:54 Active 10 ml FLUSH ASDIRECTED PRN Saline Lock Insert [OM.PC] Stat Oth 10/23/20 14:54 Ordered EKG 12 Lead [EK] Stat Ther 10/23/20 14:55 Ordered Medication Orders Sodium Chloride (Sodium Chloride 0.9% 10 Ml Syringe) 10 ml FLUSH ASDIRECTED PRN PRN Reason: Keep Vein Open Last Admin: 10/23/20 15:12 Dose: 10 ml Documented by: JERI Labs: Laboratory Tests 10/23/20 10/23/20 10/23/20 Range/Units 15:07 15:07 17:30 WBC 4.8 (4.5-11.0) K/uL RBC 4.00 L (4.30-5.90) M/uL Hgb 11.8 L (12.0-15.0) g/dL Hct 35.3 L (40.0-54.0) % MCV 88 (80-98) fL MCH 30 (27-31) pg MCHC 33 (32-36) % Plt Count 191 (150-400) K/uL Neut % (Auto) 57.7 (36-66) % Lymph % (Auto) 28.1 (24-44) % [place] % (Auto) 10.9 H (2-6) % Eos % (Auto) 2.7 (2-4) % Baso % (Auto) 0.6 (0-1) % Sodium 137 L (140-148) mmol/L Potassium 4.2 (3.6-5.2) mmol/L Chloride 102 (100-108) mmol/L Carbon Dioxide 27 (21-32) mmol/L Anion Gap 12.2 (5.0-14.0) mmol/L BUN 19 H (7-18) mg/dL Creatinine 1.4 H (0.8-1.3) mg/dL Est Cr Clr Drug Dosing 43.33 mL/min Estimated GFR (MDRD) 49 L (>60) Glucose 120 H (74-106) mg/dL Calcium 8.6 (8.5-10.1) mg/dL Total Bilirubin 0.4 (0.2-1.0) mg/dL AST 25 (15-37) U/L ALT 35 (12-78) U/L Alkaline Phosphatase 61 (46-116) U/L Troponin I < 0.017 < 0.017 (0.000-0.056) ng/mL Total Protein 6.0 L (6.4-8.2) g/dL Albumin 3.4 (3.4-5.0) g/dL Globulin 2.6 (2.3-3.5) g/dL Albumin/Globulin Ratio 1.3 (1.2-2.2) Meds: Medications Generic Name Dose Route Start Last Admin Trade Name Freq PRN Reason Stop Dose Admin Sodium Chloride 10 ml 10/23/20 14:54 10/23/20 15:12 Sodium Chloride 0.9% 10 Ml Syringe FLUSH 10 ml ASDIRECTED PRN Administration Keep Vein Open Discontinued Medications Generic Name Dose Route Start Last Admin Trade Name Freq PRN Reason Stop Dose Admin Aspirin 324 mg 10/23/20 14:54 10/23/20 15:14 Aspirin 81 Mg Tab.Chew PO 10/23/20 14:55 324 mg ONETIME ONE Administration Departure - Departure Time of Disposition: 18:37 Disposition: Home, Self-Care 01 Condition: Fair Clinical Impression: Syncope and collapse Instructions: Syncope Referrals: PCP,None [Primary Care Provider] - Forms: ED Department Discharge Additional Instructions: Keep your follow-up appointments with your primary care and cardiology, continue with current medications call return to the emergency department worsening of symptoms Sepsis Event Note (ED) - Evaluation Sepsis Screening Result: No Definite Risk - Focused Exam Vital Signs: Vital Signs Temp Pulse Resp BP Pulse Ox 10/23/20 17:52 47 L 12 135/70 99 10/23/20 17:19 13 149/71 H 99 10/23/20 16:41 45 L 14 106/58 L 99 10/23/20 16:11 12 109/54 L 98 10/23/20 15:56 45 L 10 L 117/50 L 97 10/23/20 15:15 11 L 130/62 97 10/23/20 14:59 95.9 F L 52 L 11 L 130/62 97 - My Orders Last 24 Hours: My Active Orders 10/23/20 14:54 Cardiac Monitoring [RC] .As Directed Sodium Chloride 0.9% [Saline Flush] 10 ml FLUSH ASDIRECTED PRN Saline Lock Insert [OM.PC] Stat 10/23/20 14:55 EKG 12 Lead [EK] Stat - Assessment/Plan Last 24 Hours: My Active Orders 10/23/20 14:54 Cardiac Monitoring [RC] .As Directed Sodium Chloride 0.9% [Saline Flush] 10 ml FLUSH ASDIRECTED PRN Saline Lock Insert [OM.PC] Stat 10/23/20 14:55 EKG 12 Lead [EK] Stat Plan: Assessment Acuity = acute Site and laterality = syncopal event Etiology = probably related to nitro Manifestations = none Location of injury = Home Lab values = CBC unremarkable, creatinine elevated 1.4 consistent with chronic renal failure stage G3 a troponin negative x2 several hours apart EKG demonstrates no significant changes no ST elevations or depressions chest x-ray I did review films myself I cannot appreciate any acute process, the official read from radiology is pending Plan he remained asymptomatic while in the emergency department plan is discharged home keep follow-up appointment with his primary care This note was dictated using [employer] recognition software please call with any questions on syntax or grammar.
--- NOTE | 2020-10-23 15:16 | CRLCR ---
For Patients: As a result of the Century Cures Act, medical imaging exams and procedure reports are released immediately into your electronic medical record. You may view this report before your referring provider. If you have questions, please contact your health care provider. INDICATION: Chest pain TECHNIQUE: Chest 1 view. COMPARISON: 05/25/2020 FINDINGS: Cardiovascular and mediastinum: Heart size upper limits of normal. Mediastinum is within normal limits. Sternotomy wires noted. Lungs and pleural space: Probable scarring versus atelectasis left lower lobe. No sign of infiltrate or mass. No sign of pleural effusion. No pneumothorax. Bones and soft tissues: No significant findings. IMPRESSION: No acute pulmonary or cardiac abnormalities. Dictated by Noah Lock MD @ 10/23/2020 3:15:46 PM Dictated by: Noah Lock MD @ 10/23/2020 15:15:54 (Electronically Signed)
[2020-10-23 18:47] VITALS: BP 150/78; PULSE 51
== END 2020-10-23 18:52 | disposition home or self-care (01) ==
LOC: JP.ED 14:45
DX: R55 Syncope and collapse (principal); I48.91 Unspecified atrial fibrillation; I25.10 Atherosclerotic heart disease of native coronary artery without angina pectoris; E78.00 Pure hypercholesterolemia, unspecified; I10 Essential (primary) hypertension; I25.2 Old myocardial infarction; J44.9 Chronic obstructive pulmonary disease, unspecified; E11.42 Type 2 diabetes mellitus with diabetic polyneuropathy; Z91.09 Other allergy status, other than to drugs and biological substances; Z88.8 Allergy status to other drugs, medicaments and biological substances; Z91.018 Allergy to other foods; Z79.01 Long term (current) use of anticoagulants; Z79.4 Long term (current) use of insulin; Z79.899 Other long term (current) drug therapy
CPT/HCPCS: 36415; 71045; 80053; 84484; 85025; 93005; 99285; A9270

== ENCOUNTER 2021-01-16 01:52 | Emergency (ER) | payer MEDICARE ==
[2021-01-16 02:13] VITALS: BP 104/45; PULSE 71
[2021-01-16] MEDS ORDERED: Hydrogen Peroxide 3% Top Soln 240 ML Bottle TOP PRN (02:23)
--- NOTE | 2021-01-16 02:27 | EDM.PDOC ---
ED HPI GENERAL MEDICAL PROBLEM - General Chief Complaint: Syncope Stated Complaint: [facility] Time Seen by Provider: 01/16/21 02:10 Source of Information: Reports: Patient, EMS, Old Records History Limitations: Reports: No Limitations - History of Present Illness INITIAL COMMENTS - FREE TEXT/NARRATIVE: 80 yo male had a syncopal spell at his home tonight and awoke on the floor. He lives alone. He had a self-limited nose bleed due to the fall. He recalls having high blood sugar in the early evening and took insulin. EMS noted his BS to be in the 70's upon their arrival. He was not diaphoretic. Vitals stable en route. His blood sugars have been labile lately. Onset: Today, Sudden Onset Date: 01/16/21 Duration: Minutes:, Improving Location: Reports: Face (nose), Generalized Quality: Reports: Dull (nose pain) Severity: Mild Improves with: Reports: Other (time, seems pretty alert now) Worsens with: Reports: Other (? low blood sugar) Context: Reports: Other (See HPI) Associated Symptoms: Reports: Shortness of Breath (chronic, present for about a year) Treatments [employer]: Reports: Other (see below) (none) - Related Data Allergies Allergy/AdvReac Type Severity Reaction Status Date / Time [id number] Reductase Allergy Mild Fatigue Verified 10/23/20 15:06 Inhibitor [[id number] Reductase Inhibitor] cat dander Allergy Shortness Verified 10/23/20 15:06 of Breath dog dander Allergy Shortness Verified 10/23/20 15:06 of Breath house dust Allergy Wheezing Verified 10/23/20 15:06 insulin detemir Allergy Shortness Verified 10/23/20 15:06 [From Levemir U-100 Insulin] of Breath mold Allergy Wheezing Verified 10/23/20 15:06 mushroom spores Allergy Wheezing Uncoded 10/23/20 15:06 Home Meds: Home Meds Albuterol Sulfate [Ventolin Hfa] 2 puff INH Q4H PRN 08/12/16 [History] Blood-Glucose Meter [Onetouch Ultramini] 1 strip SQ ASDIRECTED 08/12/16 [History] Insulin Aspart [NovoLOG] 1 dose SQ TID 08/12/16 [History] Levothyroxine 112 mcg PO DAILY 02/27/18 [History] Furosemide 20 mg PO BID 02/16/18 [History] atorvaSTATin Calcium [Atorvastatin Calcium] 10 mg PO BEDTIME 02/16/18 [History] Insulin Glarg,Human.Rec.Analog [Lantus Solostar] 25 unit SUBCUT ACBREAKFAST 10/04/18 [History] Clopidogrel Bisulfate [Clopidogrel] 75 mg PO DAILY 05/10/19 [History] Metoprolol Succinate [Toprol XL] 25 mg PO DAILY 30 Days #30 tab.er 11/11/19 [Rx] Amiodarone HCl [Pacerone] 200 mg PO DAILY 05/25/20 [History] Cyanocobalamin (Vitamin B-12) [Cyanocobalamin Injection] 1,000 mcg IJ Q30D 05/25/20 [History] Rivaroxaban [Xarelto] 15 mg PO DAILY 05/25/20 [History] lisinopriL [Lisinopril] 2.5 mg PO BEDTIME 07/18/20 [History] Aspirin [Children's Aspirin] 1 tab PO DAILY 10/15/20 [History] Past Medical History HEENT History: Reports: Cataract, Hard of Hearing, Impaired Vision, Other (See Below) Other HEENT History: strabismus Cardiovascular History: Reports: Afib, Aneurysm, Bypass, CAD, Heart Murmur, High Cholesterol, Hypertension, VT, SOB on Exertion Other Cardiovascular History: Abnormality of thoracic aorta aortic insufficienty Respiratory History: Reports: Asthma, COPD Gastrointestinal History: Reports: Other (See Below) Other Gastrointestinal History: Colitis Genitourinary History: Reports: Other (See Below) Other Genitourinary History: urinary frequency Musculoskeletal History: Reports: Arthritis, Osteoarthritis, Other (See Below) Other Musculoskeletal History: spinal stenosis Lumbar polyneuropathy Endocrine/Metabolic History: Reports: Diabetes, Type II Other Endocrine/Metabolic History: insulin dependent Hematologic History: Reports: Anticoagulation Therapy Oncologic (Cancer) History: Reports: Squamous Cell Carcinoma, Other (See Below) Other Oncologic History: Left hand - Infectious Disease History Infectious Disease History: Reports: Chicken Pox, Measles, Mumps - Past Surgical History HEENT Surgical History: Reports: Tonsillectomy Cardiovascular Surgical History: Reports: Cardiac Ablation, Coronary Artery Bypass, Coronary Artery Stent Other Cardiovascular Surgeries/Procedures: Ablation 05/08/2019 GI Surgical History: Reports: Colonoscopy Musculoskeletal Surgical History: Reports: Arthroscopic Knee, Knee Replacement Other Musculoskeletal Surgeries/Procedures:: HAND SURGERY Social & Family History - Family History Family Medical History: No Pertinent Family History - Tobacco Use Tobacco Use Status *Q: Former Tobacco User Used Tobacco, but Quit: No - Caffeine Use Caffeine Use: Reports: Coffee - Alcohol Use Days Per Week of Alcohol Use: 6 Number of Drinks Per Day: 2 Total Drinks Per Week: 12 - Recreational Drug Use Recreational Drug Use: No ED ROS GENERAL - Review of Systems Review Of Systems: See Below Constitutional: Reports: No Symptoms HEENT: Reports: Nosebleed (from his fall) Respiratory: Reports: No Symptoms Cardiovascular: Reports: Syncope Endocrine: Reports: High Glucose, Low Glucose GI/Abdominal: Reports: No Symptoms : Reports: No Symptoms Musculoskeletal: Reports: No Symptoms Skin: Reports: No Symptoms Neurological: Reports: No Symptoms Psychiatric: Reports: No Symptoms - Physical Exam Exam: See Below Exam Limited By: No Limitations General Appearance: Alert, WD/WN, No Apparent Distress Eye Exam: Bilateral Eye: Normal Inspection, Other (has chronic disconjugate gaze) Ears: Normal External Exam, Normal Canal, Hearing Loss Nose: Other (dried blood at both nares, no nasal deformity or bony tenderness. ). No: No Blood Throat/Mouth: Normal Inspection, Normal Lips, Normal Oropharynx, Normal Voice, No Airway Compromise Head Exam: Normocephalic Neck: Normal Inspection, Non-Tender Respiratory/Chest: No Respiratory Distress, Lungs Clear, Normal Breath Sounds, No Accessory Muscle Use Cardiovascular: Regular Rate, Rhythm, No Edema GI/Abdominal: Normal Bowel Sounds, Soft, Non-Tender, No Distention Neuro Exam (Abbreviated): Alert, Oriented, CN II-XII Intact, Normal Cognition, No Motor/Sensory Deficits Back Exam: Normal Inspection Extremities: Normal Inspection, Normal Range of Motion, Non-Tender, No Pedal Edema Psychiatric: Normal Affect, Normal Mood Skin Exam: Warm, Dry, Intact, Normal Color, No Rash Course - Vital Signs Last Recorded V/S: Last Vital Signs Temp 36.7 C 01/16/21 02:03 Pulse 71 01/16/21 02:03 Resp 10 L 01/16/21 02:03 BP 104/45 L 01/16/21 02:03 Pulse Ox 94 L 01/16/21 02:03 - Orders/Labs/Meds Labs: Laboratory Tests 01/16/21 01/16/21 01/16/21 Range/Units 02:25 02:25 03:26 WBC 10.1 (4.5-11.0) K/uL RBC 3.99 L (4.30-5.90) M/uL Hgb 11.6 L (12.0-15.0) g/dL Hct 34.7 L (40.0-54.0) % MCV 87 (80-98) fL MCH 29 (27-31) pg MCHC 33 (32-36) % Plt Count 270 (150-400) K/uL Sodium 134 L (140-148) mmol/L Potassium 3.8 (3.6-5.2) mmol/L Chloride 99 L (100-108) mmol/L Carbon Dioxide 28 (21-32) mmol/L Anion Gap 10.8 (5.0-14.0) mmol/L BUN 15 (7-18) mg/dL Creatinine 1.4 H (0.8-1.3) mg/dL Est Cr Clr Drug Dosing 43.33 mL/min Estimated GFR (MDRD) 49 L (>60) Glucose 63 L (74-106) mg/dL POC Glucose (74-106) mg/dL Calcium 8.5 (8.5-10.1) mg/dL Urine Color Yellow (YELLOW) Urine Appearance Clear (CLEAR) Urine pH 7.5 (5.0-8.0) Ur Specific [place] 1.020 (1.008-1.030) Urine Protein Negative (NEGATIVE) mg/dL Urine Glucose (UA) 100 H (NEGATIVE) mg/dL Urine Ketones Negative (NEGATIVE) mg/dL Urine Occult Blood Negative (NEGATIVE) Urine Nitrite Negative (NEGATIVE) Urine Bilirubin Negative (NEGATIVE) Urine Urobilinogen 1.0 (0.2-1.0) EU/dL Ur Leukocyte Esterase Negative (NEGATIVE) Urine RBC 0-5 (0-5) Urine WBC 0-5 (0-5) Ur Epithelial Cells Rare Amorphous Sediment Not seen Urine Bacteria Rare Urine Mucus Not seen 01/16/21 Range/Units 03:37 WBC (4.5-11.0) K/uL RBC (4.30-5.90) M/uL Hgb (12.0-15.0) g/dL Hct (40.0-54.0) % MCV (80-98) fL MCH (27-31) pg MCHC (32-36) % Plt Count (150-400) K/uL Sodium (140-148) mmol/L Potassium (3.6-5.2) mmol/L Chloride (100-108) mmol/L Carbon Dioxide (21-32) mmol/L Anion Gap (5.0-14.0) mmol/L BUN (7-18) mg/dL Creatinine (0.8-1.3) mg/dL Est Cr Clr Drug Dosing mL/min Estimated GFR (MDRD) (>60) Glucose (74-106) mg/dL POC Glucose 158 H (74-106) mg/dL Calcium (8.5-10.1) mg/dL Urine Color (YELLOW) Urine Appearance (CLEAR) Urine pH (5.0-8.0) Ur Specific [place] (1.008-1.030) Urine Protein (NEGATIVE) mg/dL Urine Glucose (UA) (NEGATIVE) mg/dL Urine Ketones (NEGATIVE) mg/dL Urine Occult Blood (NEGATIVE) Urine Nitrite (NEGATIVE) Urine Bilirubin (NEGATIVE) Urine Urobilinogen (0.2-1.0) EU/dL Ur Leukocyte Esterase (NEGATIVE) Urine RBC (0-5) Urine WBC (0-5) Ur Epithelial Cells Amorphous Sediment Urine Bacteria Urine Mucus Meds: Medications Discontinued Medications Generic Name Dose Route Start Last Admin Trade Name Freq PRN Reason Stop Dose Admin Hydrogen Peroxide 10 ml 01/16/21 02:23 01/16/21 03:37 Hydrogen Peroxide 3% Top Soln 240 Ml Bottle TOP 10 ml ONETIME PRN Administration Wound Care - Re-Assessments/Exams Free Text/Narrative Re-Assessment/Exam: 01/16/21 03:18 drank a couple orange juices and ate a sandwich after his labs showed a BS of 64. Is asymptomatic at this level. Free Text/Narrative Re-Assessment/Exam: 01/16/21 03:44 BS of 158 after a snack Departure - Departure Time of Disposition: 03:45 Disposition: Home, Self-Care 01 Condition: Fair Clinical Impression: Hypoglycemia, Epistaxis Syncope Qualifiers: Syncope type: unspecified Qualified Code(s): R55 - Syncope and collapse - Discharge Information *PRESCRIPTION DRUG MONITORING PROGRAM REVIEWED*: Not Applicable *COPY OF PRESCRIPTION DRUG MONITORING REPORT IN PATIENT TONY: Not Applicable Instructions: Hypoglycemia, [id number] Referrals: PCP,None [Primary Care Provider] - Forms: ED Department Discharge Additional Instructions: Follow up with your provider to discuss your labile blood sugars. Recheck as needed. Sepsis Event Note (ED) - Evaluation Sepsis Screening Result: No Definite Risk - Focused Exam Vital Signs: Vital Signs Temp Pulse Resp BP Pulse Ox 01/16/21 02:03 36.7 C 71 10 L 104/45 L 94 L
== END 2021-01-16 04:08 | disposition home or self-care (01) ==
LOC: JP.ED 01:52
DX: R55 Syncope and collapse (principal); E11.649 Type 2 diabetes mellitus with hypoglycemia without coma; R04.0 Epistaxis; I48.91 Unspecified atrial fibrillation; J44.9 Chronic obstructive pulmonary disease, unspecified; I25.10 Atherosclerotic heart disease of native coronary artery without angina pectoris; E78.00 Pure hypercholesterolemia, unspecified; I10 Essential (primary) hypertension; Z87.891 Personal history of nicotine dependence; Z95.1 Presence of aortocoronary bypass graft; Z88.8 Allergy status to other drugs, medicaments and biological substances; Z91.018 Allergy to other foods; Z91.09 Other allergy status, other than to drugs and biological substances; Z79.4 Long term (current) use of insulin; Z79.899 Other long term (current) drug therapy; Z79.82 Long term (current) use of aspirin
CPT/HCPCS: 36415; 80048; 81001; 82947; 85027; 99285; A9270

== ENCOUNTER 2021-09-25 12:34 | Emergency (ER) | payer MEDICARE ==
[2021-09-25 12:47] VITALS: BP 165/48; PULSE 62
[2021-09-25] MEDS ORDERED: Bacitracin Oint 1 GM U/D Packet TOP ONE (13:46)
[2021-09-25] MEDS ORDERED: Lidocaine 1% 5 ML VIAL INJECT ONE (13:46)
== END 2021-09-25 15:33 | disposition home or self-care (01) ==
LOC: JP.ED 12:34
DX: S01.81XA Laceration without foreign body of other part of head, initial encounter (principal); S40.011A Contusion of right shoulder, initial encounter; I25.10 Atherosclerotic heart disease of native coronary artery without angina pectoris; J44.9 Chronic obstructive pulmonary disease, unspecified; I10 Essential (primary) hypertension; I25.2 Old myocardial infarction; E11.9 Type 2 diabetes mellitus without complications; Z88.6 Allergy status to analgesic agent; Z91.048 Other nonmedicinal substance allergy status; Z88.8 Allergy status to other drugs, medicaments and biological substances; Z91.018 Allergy to other foods; W22.8XXA Striking against or struck by other objects, initial encounter
CPT/HCPCS: 12013; 70450; 70450-26; 73030-26-LT; 73030-LT; 99284

== ENCOUNTER 2021-12-22 13:47 | Emergency (ER) | payer MEDICAID, MEDICARE ==
[2021-12-22 14:46] VITALS: PULSE 59
[2021-12-22] MEDS ORDERED: Aspirin 81 MG Tab.Chew PO ONE (15:48)
[2021-12-22 16:22] LABS: TROPONIN I HIGH SENSITIVITY 15.2 pg/mL (<=60.3)
[2021-12-22 17:00] VITALS: BP 151/70
== END 2021-12-22 17:07 | disposition home or self-care (01) ==
LOC: JP.ED 13:47
DX: R07.89 Other chest pain (principal); I48.91 Unspecified atrial fibrillation; I25.10 Atherosclerotic heart disease of native coronary artery without angina pectoris; J44.9 Chronic obstructive pulmonary disease, unspecified; E11.9 Type 2 diabetes mellitus without complications; E78.00 Pure hypercholesterolemia, unspecified; I10 Essential (primary) hypertension; Z95.1 Presence of aortocoronary bypass graft; Z91.018 Allergy to other foods; Z88.8 Allergy status to other drugs, medicaments and biological substances; Z79.4 Long term (current) use of insulin; Z79.899 Other long term (current) drug therapy
CPT/HCPCS: 36415; 71046; 80048; 84484; 85025; 93005; 99285; A9270

== ENCOUNTER 2022-03-08 18:31 | Emergency (ER) | payer MEDICARE ==
[2022-03-08 18:46] VITALS: BP 142/53; PULSE 73
[2022-03-08] MEDS ORDERED: 50% Dextrose in Water 50 ML Syringe IVPUSH PRN (18:50)
[2022-03-08] MEDS ORDERED: Glucagon,Human Recombinant 1 MG Vial IM PRN (18:50)
[2022-03-08] MEDS ORDERED: Insulin Lispro 100 Unit/ML 3 ML KwikPen SUBCUT ONE (18:50)
== END 2022-03-08 20:08 | disposition home or self-care (01) ==
LOC: JP.ED 18:31
DX: E11.65 Type 2 diabetes mellitus with hyperglycemia (principal); E11.59 Type 2 diabetes mellitus with other circulatory complications; Z79.4 Long term (current) use of insulin; I10 Essential (primary) hypertension; I25.10 Atherosclerotic heart disease of native coronary artery without angina pectoris; I48.91 Unspecified atrial fibrillation; E78.00 Pure hypercholesterolemia, unspecified; J44.9 Chronic obstructive pulmonary disease, unspecified; I25.2 Old myocardial infarction; Z91.09 Other allergy status, other than to drugs and biological substances; Z88.8 Allergy status to other drugs, medicaments and biological substances; Z79.899 Other long term (current) drug therapy
CPT/HCPCS: 36415; 82009; 82947; 99283; 99284; J1815

== ENCOUNTER 2022-03-26 12:32 | Emergency (ER) | payer MEDICARE ==
[2022-03-26 14:10] LABS: ESTIMATED GFR 54 mL/min (>60); TROPONIN I HIGH SENSITIVITY 39.1 pg/mL (<=60.3)
[2022-03-26 14:46] LABS: CORONAVIRUS COVID-19 NAA NEGATIVE (NEGATIVE)
[2022-03-26] MEDS ORDERED: Albuterol/Ipratropium 3.0-0.5 MG/3 ML Neb Soln NEB ONE (14:54)
[2022-03-26] MEDS ORDERED: methylPREDNISolone Sodium Succinate 125 MG/2 ML SDV IVPUSH ONE (14:54)
[2022-03-26] MEDS ORDERED: Acetaminophen 500 MG Tab PO ONE (15:21)
[2022-03-26 15:22] VITALS: BP 122/47; PULSE 73
== END 2022-03-26 15:50 | disposition home or self-care (01) ==
LOC: JP.ED 12:32
DX: J10.1 Influenza due to other identified influenza virus with other respiratory manifestations (principal); E78.00 Pure hypercholesterolemia, unspecified; I10 Essential (primary) hypertension; J45.909 Unspecified asthma, uncomplicated; I25.2 Old myocardial infarction; Z91.09 Other allergy status, other than to drugs and biological substances; Z88.8 Allergy status to other drugs, medicaments and biological substances; Z87.891 Personal history of nicotine dependence; Z20.822 Contact with and (suspected) exposure to COVID-19
CPT/HCPCS: 0241U; 36415; 71046; 80053; 84484; 85025; 94640; 96374; 99285; A9270; J2930; 99282; J7620

== ENCOUNTER 2022-03-27 23:34 | Inpatient (IN) | payer MEDICARE ==
[2022-03-28 01:52] LABS: ESTIMATED GFR 50 mL/min (>60)
[2022-03-28] MEDS: Albuterol/Ipratropium 3.0-0.5 MG/3 ML Neb Soln NEB PRN ×3 (01:53→10:35)
[2022-03-28] MEDS ORDERED: 50% Dextrose in Water 50 ML Syringe IVPUSH PRN ×2 (06:56→11:40)
[2022-03-28] MEDS ORDERED: Levothyroxine 112 MCG Tab PO ONE (06:56)
[2022-03-28] MEDS ORDERED: Glucagon,Human Recombinant 1 MG Vial IM PRN ×2 (06:56→11:40)
[2022-03-28] MEDS ORDERED: Cholecalciferol (Vitamin D3) 50,000 Unit Cap PO SCH (07:00)
[2022-03-28] MEDS: Insulin Glargine,Human Rec. Analog 100 Units/ML 3 ML Pen SUBCUT SCH ×2 (07:48→13:11)
[2022-03-28] MEDS: Clopidogrel 75 MG Tab PO SCH ×2 (08:09→13:11)
[2022-03-28] MEDS: Amiodarone 200 MG Tab PO SCH ×2 (08:09→13:11)
[2022-03-28] MEDS: Magnesium Oxide 400 MG Tab PO SCH ×2 (08:09→13:11)
[2022-03-28] MEDS: Furosemide 40 MG Tab PO SCH ×2 (08:09→14:44)
[2022-03-28] MEDS: Cholecalciferol (Vitamin D3) 25 MCG Tab PO SCH (08:21)
[2022-03-28] MEDS ORDERED: Sodium Chloride 0.9% 500 ML IV SCH ×2 (10:45→11:45)
[2022-03-28] MEDS ORDERED: Insulin Lispro 100 Unit/ML 3 ML KwikPen SUBCUT ONE (11:40)
[2022-03-28] MEDS ORDERED: Ondansetron 4 MG Tab.DIS PO PRN (12:13)
[2022-03-28] MEDS ORDERED: Magnesium Hydroxide 400 MG/5 ML Susp 30 ML Cup PO PRN (12:13)
[2022-03-28] MEDS ORDERED: oxyCODONE 5 MG Tab PO PRN (12:13)
[2022-03-28] MEDS ORDERED: Ondansetron 4 MG/2 ML SDV IV PRN (12:13)
[2022-03-28] MEDS ORDERED: Melatonin 3 MG Tab PO PRN (12:13)
[2022-03-28] MEDS: Albuterol 0.083% 2.5 MG/3 ML Neb Soln NEB PRN (13:20)
[2022-03-28] MEDS: Benzonatate 100 MG Cap PO PRN (13:28)
[2022-03-28] MEDS: Albuterol 0.083% 2.5 MG/3 ML Neb Soln NEB SCH ×2 (14:49→20:08)
[2022-03-28] MEDS: Acetaminophen 325 MG Tab PO PRN (15:44)
[2022-03-28] MEDS: guaiFENesin/Dextromethorphan 100-10 MG/5 ML Soln 10 ML Cup PO PRN ×2 (15:49→20:45)
[2022-03-28] MEDS: Insulin Lispro 100 Unit/ML 3 ML KwikPen SUBCUT SCH ×2 (16:35→21:56)
[2022-03-28] MEDS: Rivaroxaban 15 MG Tab PO SCH (17:15)
[2022-03-28] MEDS ORDERED: Insulin Lispro 100 Units/ML 3 ML Vial SUBCUT ONE (18:32)
[2022-03-28] MEDS: atorvaSTATin 10 MG Tab PO SCH (20:45)
[2022-03-29] MEDS: Albuterol 0.083% 2.5 MG/3 ML Neb Soln NEB PRN ×3 (01:22→10:20)
[2022-03-29] MEDS: Insulin Lispro 100 Unit/ML 3 ML KwikPen SUBCUT SCH ×4 (07:33→20:58)
[2022-03-29] MEDS: Albuterol 0.083% 2.5 MG/3 ML Neb Soln NEB SCH ×4 (07:46→20:39)
[2022-03-29] MEDS: Clopidogrel 75 MG Tab PO SCH (10:15)
[2022-03-29] MEDS: Insulin Glargine,Human Rec. Analog 100 Units/ML 3 ML Pen SUBCUT SCH (10:15)
[2022-03-29] MEDS: Magnesium Oxide 400 MG Tab PO SCH (10:15)
[2022-03-29] MEDS: Amiodarone 200 MG Tab PO SCH (10:15)
[2022-03-29] MEDS: Cholecalciferol (Vitamin D3) 25 MCG Tab PO SCH (10:20)
[2022-03-29] MEDS: Benzonatate 100 MG Cap PO PRN (10:20)
[2022-03-29] MEDS ORDERED: methylPREDNISolone Sodium Succinate 125 MG/2 ML SDV IVPUSH ONE (10:45)
[2022-03-29] MEDS: Ipratropium 0.02% 0.5 MG/2.5 ML Neb Soln NEB SCH ×3 (11:05→20:39)
[2022-03-29] MEDS: Rivaroxaban 15 MG Tab PO SCH (16:35)
[2022-03-29] MEDS: methylPREDNISolone Sodium Succinate 125 MG/2 ML SDV IVPUSH SCH (17:45)
[2022-03-29] MEDS: atorvaSTATin 10 MG Tab PO SCH (20:56)
[2022-03-30] MEDS: guaiFENesin/Dextromethorphan 100-10 MG/5 ML Soln 10 ML Cup PO PRN (01:10)
[2022-03-30] MEDS: methylPREDNISolone Sodium Succinate 125 MG/2 ML SDV IVPUSH SCH (02:42)
[2022-03-30] MEDS: Albuterol 0.083% 2.5 MG/3 ML Neb Soln NEB SCH ×4 (07:18→20:23)
[2022-03-30] MEDS: Ipratropium 0.02% 0.5 MG/2.5 ML Neb Soln NEB SCH ×4 (07:18→20:23)
[2022-03-30] MEDS ORDERED: predniSONE 20 MG Tab PO SCH (08:00)
[2022-03-30] MEDS: Insulin Lispro 100 Unit/ML 3 ML KwikPen SUBCUT SCH ×5 (08:07→19:46)
[2022-03-30] MEDS: Clopidogrel 75 MG Tab PO SCH (08:11)
[2022-03-30] MEDS: Magnesium Oxide 400 MG Tab PO SCH (08:11)
[2022-03-30] MEDS: Amiodarone 200 MG Tab PO SCH (08:11)
[2022-03-30] MEDS: Cholecalciferol (Vitamin D3) 25 MCG Tab PO SCH (08:11)
[2022-03-30] MEDS: Insulin Glargine,Human Rec. Analog 100 Units/ML 3 ML Pen SUBCUT SCH (09:48)
[2022-03-30] MEDS ORDERED: Insulin Lispro 100 Unit/ML 3 ML KwikPen SUBCUT STA (11:40)
[2022-03-30] MEDS: Rivaroxaban 15 MG Tab PO SCH (17:34)
[2022-03-30] MEDS: atorvaSTATin 10 MG Tab PO SCH (20:23)
[2022-03-31] MEDS: Albuterol 0.083% 2.5 MG/3 ML Neb Soln NEB PRN (00:35)
[2022-03-31] MEDS: Albuterol 0.083% 2.5 MG/3 ML Neb Soln NEB SCH ×4 (07:22→21:56)
[2022-03-31] MEDS: Ipratropium 0.02% 0.5 MG/2.5 ML Neb Soln NEB SCH ×4 (07:22→21:55)
[2022-03-31] MEDS: Clopidogrel 75 MG Tab PO SCH (08:23)
[2022-03-31] MEDS: Amiodarone 200 MG Tab PO SCH (08:23)
[2022-03-31] MEDS: Magnesium Oxide 400 MG Tab PO SCH (08:24)
[2022-03-31] MEDS: Cholecalciferol (Vitamin D3) 25 MCG Tab PO SCH (08:24)
[2022-03-31] MEDS: Insulin Glargine,Human Rec. Analog 100 Units/ML 3 ML Pen SUBCUT SCH (08:29)
[2022-03-31] MEDS: Insulin Lispro 100 Unit/ML 3 ML KwikPen SUBCUT SCH ×5 (08:29→21:54)
[2022-03-31] MEDS ORDERED: Glucagon,Human Recombinant 1 MG Vial IM PRN (10:30)
[2022-03-31] MEDS ORDERED: Insulin Lispro 100 Unit/ML 3 ML KwikPen SUBCUT ONE (10:30)
[2022-03-31] MEDS ORDERED: 50% Dextrose in Water 50 ML Syringe IVPUSH PRN (10:30)
[2022-03-31] MEDS: Rivaroxaban 15 MG Tab PO SCH (17:37)
[2022-03-31] MEDS: atorvaSTATin 10 MG Tab PO SCH (21:56)
[2022-04-01] MEDS: Albuterol 0.083% 2.5 MG/3 ML Neb Soln NEB SCH ×4 (07:24→20:52)
[2022-04-01] MEDS: Ipratropium 0.02% 0.5 MG/2.5 ML Neb Soln NEB SCH ×4 (07:24→20:52)
[2022-04-01] MEDS: Clopidogrel 75 MG Tab PO SCH (08:27)
[2022-04-01] MEDS: Cholecalciferol (Vitamin D3) 25 MCG Tab PO SCH (08:27)
[2022-04-01] MEDS: Amiodarone 200 MG Tab PO SCH (08:27)
[2022-04-01] MEDS: Magnesium Oxide 400 MG Tab PO SCH (08:27)
[2022-04-01] MEDS: Insulin Lispro 100 Unit/ML 3 ML KwikPen SUBCUT SCH ×4 (08:30→20:51)
[2022-04-01] MEDS: Insulin Glargine,Human Rec. Analog 100 Units/ML 3 ML Pen SUBCUT SCH (08:30)
[2022-04-01] MEDS: Rivaroxaban 15 MG Tab PO SCH (17:26)
[2022-04-01] MEDS: atorvaSTATin 10 MG Tab PO SCH (20:52)
[2022-04-02] MEDS: Acetaminophen 325 MG Tab PO PRN ×3 (00:09→21:18)
[2022-04-02] MEDS: Ipratropium 0.02% 0.5 MG/2.5 ML Neb Soln NEB SCH ×4 (07:17→20:52)
[2022-04-02] MEDS: Albuterol 0.083% 2.5 MG/3 ML Neb Soln NEB SCH ×4 (07:17→20:52)
[2022-04-02] MEDS: Cholecalciferol (Vitamin D3) 25 MCG Tab PO SCH (08:37)
[2022-04-02] MEDS: Insulin Glargine,Human Rec. Analog 100 Units/ML 3 ML Pen SUBCUT SCH (08:37)
[2022-04-02] MEDS: Amiodarone 200 MG Tab PO SCH (08:37)
[2022-04-02] MEDS: Clopidogrel 75 MG Tab PO SCH (08:37)
[2022-04-02] MEDS: Magnesium Oxide 400 MG Tab PO SCH (08:37)
[2022-04-02] MEDS: Insulin Lispro 100 Unit/ML 3 ML KwikPen SUBCUT SCH ×5 (08:42→19:03)
[2022-04-02] MEDS: Rivaroxaban 15 MG Tab PO SCH (17:25)
[2022-04-02] MEDS: atorvaSTATin 10 MG Tab PO SCH (20:52)
[2022-04-03] MEDS: Acetaminophen 325 MG Tab PO PRN (06:22)
[2022-04-03] MEDS: Ipratropium 0.02% 0.5 MG/2.5 ML Neb Soln NEB SCH (07:17)
[2022-04-03] MEDS: Albuterol 0.083% 2.5 MG/3 ML Neb Soln NEB SCH (07:18)
[2022-04-03] MEDS: Cholecalciferol (Vitamin D3) 25 MCG Tab PO SCH (08:02)
[2022-04-03] MEDS: Amiodarone 200 MG Tab PO SCH (08:02)
[2022-04-03] MEDS: Magnesium Oxide 400 MG Tab PO SCH (08:02)
[2022-04-03] MEDS: Clopidogrel 75 MG Tab PO SCH (08:02)
[2022-04-03] MEDS: Insulin Glargine,Human Rec. Analog 100 Units/ML 3 ML Pen SUBCUT SCH (08:04)
[2022-04-03] MEDS: Insulin Lispro 100 Unit/ML 3 ML KwikPen SUBCUT SCH (08:05)
[2022-04-03 08:13] VITALS: BP 140/65; PULSE 70
== END 2022-04-03 11:30 | DRG 193 ==
LOC: JP.ED 23:34 → JP.MS 03-28 11:41
PROVIDERS: ADMIT Internal Medicine; ATTEND Hospitalist
DX: J10.1 Influenza due to other identified influenza virus with other respiratory manifestations (principal); J96.01 Acute respiratory failure with hypoxia; G31.84 Mild cognitive impairment of uncertain or unknown etiology; H91.90 Unspecified hearing loss, unspecified ear; H54.7 Unspecified visual loss; R09.02 Hypoxemia; Z20.822 Contact with and (suspected) exposure to COVID-19; J44.9 Chronic obstructive pulmonary disease, unspecified; E78.00 Pure hypercholesterolemia, unspecified; M19.90 Unspecified osteoarthritis, unspecified site; Z96.659 Presence of unspecified artificial knee joint; I48.91 Unspecified atrial fibrillation; E11.9 Type 2 diabetes mellitus without complications; I10 Essential (primary) hypertension; Z91.09 Other allergy status, other than to drugs and biological substances; Z88.8 Allergy status to other drugs, medicaments and biological substances; I25.10 Atherosclerotic heart disease of native coronary artery without angina pectoris; E78.5 Hyperlipidemia, unspecified; Z98.890 Other specified postprocedural states; I25.2 Old myocardial infarction; Z79.4 Long term (current) use of insulin; Z79.01 Long term (current) use of anticoagulants; Z79.899 Other long term (current) drug therapy; Z95.1 Presence of aortocoronary bypass graft; Z95.5 Presence of coronary angioplasty implant and graft; Z86.16 Personal history of COVID-19; Z87.891 Personal history of nicotine dependence
CPT/HCPCS: 36415; 71045; 71045-26; 80048; 80053; 82947; 84145; 85025; 85027; 86140; 94640; 97110-GO; 97110-GP; 97116-GP; 97161-GP; 97165-GO; 97530-GP; 97535-GO; 99285; A9270-GY; J1815; J1815-GY; J2930; J7030; J7512; J7620; U0002

== ENCOUNTER 2023-03-21 13:02 | Emergency (ER) | payer BC, MEDICARE ==
[2023-03-21 13:40] VITALS: BP 160/64; PULSE 64
== END 2023-03-21 14:41 | disposition home or self-care (01) ==
LOC: JP.ED 13:02
DX: E11.69 Type 2 diabetes mellitus with other specified complication (principal); I10 Essential (primary) hypertension; Z79.4 Long term (current) use of insulin; I25.10 Atherosclerotic heart disease of native coronary artery without angina pectoris; I25.2 Old myocardial infarction; E78.00 Pure hypercholesterolemia, unspecified; J44.9 Chronic obstructive pulmonary disease, unspecified; E11.9 Type 2 diabetes mellitus without complications; Z86.16 Personal history of COVID-19; Z79.899 Other long term (current) drug therapy; Z91.018 Allergy to other foods; Z88.8 Allergy status to other drugs, medicaments and biological substances; Z91.048 Other nonmedicinal substance allergy status
CPT/HCPCS: 99281

== ENCOUNTER 2023-05-25 18:22 | Emergency (ER) | payer MEDICARE ==
[2023-05-25 19:07] LABS: BASOPHILS ABSOLUTE AUTO 0.06 K/uL (0.00-0.10); BASOPHILS PERCENT AUTO 1.1 % (0.1-1.3); EOSINOPHILS ABSOLUTE AUTO 0.11 K/uL (0.00-0.40); EOSINOPHILS PERCENT AUTO 2.1 % (0.0-5.4); HEMATOCRIT 39.5 % (38.4-49.7); HEMOGLOBIN 13.6 g/dL (12.9-16.9); IMMATURE GRAN PERCENT AUTO 0.2 % (0.0-0.7); LYMPHOCYTES ABSOLUTE AUTO 1.21 K/uL (0.8-3.3); LYMPHOCYTES PERCENT AUTO 23.2 % (11.4-47.7); MEAN CORPUSCULAR HEMOGLOBIN 29.4 pg (31.6-35.5); MEAN CORPUSCULAR HGB CONC 34.4 g/dL (31.6-35.5); MEAN CORPUSCULAR VOLUME 85.3 fL (81.4-99.0); MONOCYTES PERCENT AUTO 11.5 % (3.3-12.6); NEUTROPHILS ABSOLUTE AUTO 3.23 K/uL (1.0-7.6); NEUTROPHILS PERCENT AUTO 61.9 % (40.0-78.1); PLATELET COUNT,PLT 202 K/uL (130-375); RED BLOOD CELL COUNT 4.63 M/uL (4.14-5.76); WHITE BLOOD CELL COUNT,WBC 5.2 K/uL (3.2-11.0)
[2023-05-25 19:09] LABS: IMMATURE GRAN ABSOLUTE AUTO 0.01 K/uL (0.00-0.23)
[2023-05-25 19:32] LABS: A/G RATIO 1.2 (1.2-2.2); ALANINE AMINOTRANSFERASE,ALT 27 U/L (12-78); ALBUMIN 3.6 g/dL (3.4-5.0); ALKALINE PHOSPHATASE 82 U/L (46-116); ASPARTATE AMNIOTRANSFERASE,AST 22 U/L (15-37); BILIRUBIN TOTAL 0.6 mg/dL (0.2-1.0); BLOOD UREA NITROGEN,BUN 22 mg/dL (7-18); CARBON DIOXIDE,CO2 24 mmol/L (21-32); CHLORIDE,CL 102 mmol/L (100-108); CREATININE 1.2 mg/dL (0.8-1.3); EST CRCL DRUG DOSING (CG) 47.93 mL/min; ESTIMATED GFR 59 mL/min (>60); GLUCOSE RANDOM 210 mg/dL (74-106); POTASSIUM,K 4.1 mmol/L (3.6-5.2); PROTEIN TOTAL,TP 6.6 g/dL (6.4-8.2); SODIUM,NA 137 mmol/L (140-148)
[2023-05-25 19:33] LABS: ANION GAP 15.1 mmol/L (5.0-14.0)
[2023-05-25 20:28] VITALS: BP 102/78; PULSE 101
== END 2023-05-25 23:22 ==
LOC: JP.ED 18:22
DX: I48.91 Unspecified atrial fibrillation (principal); R79.89 Other specified abnormal findings of blood chemistry; I10 Essential (primary) hypertension; I25.2 Old myocardial infarction; I25.810 Atherosclerosis of coronary artery bypass graft(s) without angina pectoris; E11.9 Type 2 diabetes mellitus without complications; Z86.16 Personal history of COVID-19; Z88.8 Allergy status to other drugs, medicaments and biological substances; Z91.048 Other nonmedicinal substance allergy status; Z91.018 Allergy to other foods; Z79.899 Other long term (current) drug therapy
CPT/HCPCS: 36415; 71045; 71045-26; 80053; 83735; 84484; 85025; 93005; 99285

== ENCOUNTER 2023-08-02 16:50 | Inpatient (IN) | payer MEDICARE ==
[2023-08-02] MEDS ORDERED: Naloxone 0.4 MG/ML SDV IVPUSH PRN (17:06)
[2023-08-02 17:18] LABS: BASOPHILS ABSOLUTE AUTO 0.03 K/uL (0.00-0.10); BASOPHILS PERCENT AUTO 0.3 % (0.1-1.3); EOSINOPHILS PERCENT AUTO 0.1 % (0.0-5.4); HEMATOCRIT 38.6 % (38.4-49.7); HEMOGLOBIN 13.2 g/dL (12.9-16.9); IMMATURE GRAN ABSOLUTE AUTO 0.06 K/uL (0.00-0.23); IMMATURE GRAN PERCENT AUTO 0.5 % (0.0-0.7); LYMPHOCYTES ABSOLUTE AUTO 0.58 K/uL (0.8-3.3); LYMPHOCYTES PERCENT AUTO 5.2 % (11.4-47.7); MEAN CORPUSCULAR HEMOGLOBIN 29.1 pg (31.6-35.5); MEAN CORPUSCULAR HGB CONC 34.2 g/dL (31.6-35.5); MEAN CORPUSCULAR VOLUME 85.2 fL (81.4-99.0); MONOCYTES ABSOLUTE AUTO 0.93 K/uL (0.20-0.90); MONOCYTES PERCENT AUTO 8.4 % (3.3-12.6); NEUTROPHILS ABSOLUTE AUTO 9.52 K/uL (1.0-7.6); NEUTROPHILS PERCENT AUTO 85.5 % (40.0-78.1); PLATELET COUNT,PLT 189 K/uL (130-375); RED BLOOD CELL COUNT 4.53 M/uL (4.14-5.76); WHITE BLOOD CELL COUNT,WBC 11.1 K/uL (3.2-11.0)
[2023-08-02 17:19] LABS: EOSINOPHILS ABSOLUTE AUTO 0.01 K/uL (0.00-0.40)
[2023-08-02] MEDS: HYDROmorphone 0.5 MG/0.5 ML Syringe IVPUSH PRN (17:26)
[2023-08-02] MEDS: Ondansetron 4 MG/2 ML SDV IVPUSH ONE (17:26)
[2023-08-02] MEDS: Sodium Chloride 0.9% 1,000 ML IV SCH (17:31)
[2023-08-02 17:35] LABS: INR 1.2; PROTHROMBIN TIME 11.9 sec (9.2-10.6)
[2023-08-02 17:46] LABS: A/G RATIO 1.3 (1.2-2.2); ALANINE AMINOTRANSFERASE,ALT 42 U/L (12-78); ALBUMIN 3.9 g/dL (3.4-5.0); ALKALINE PHOSPHATASE 101 U/L (46-116); ASPARTATE AMNIOTRANSFERASE,AST 38 U/L (15-37); BILIRUBIN TOTAL 1.2 mg/dL (0.2-1.0); BLOOD UREA NITROGEN,BUN 18 mg/dL (7-18); CALCIUM 9.1 mg/dL (8.5-10.1); CARBON DIOXIDE,CO2 26 mmol/L (21-32); CHLORIDE,CL 99 mmol/L (100-108); EST CRCL DRUG DOSING (CG) 57.52 mL/min; ESTIMATED GFR 74 mL/min (>60); GLUCOSE RANDOM 167 mg/dL (74-106); POTASSIUM,K 4.3 mmol/L (3.6-5.2); PRO B-TYPE NATRIUR PEPT,BNPPRO 1976 pg/mL (5-450); SODIUM,NA 137 mmol/L (140-148); TROPONIN I HIGH SENSITIVITY 20.8 pg/mL (<=60.3)
[2023-08-02 17:48] LABS: ANION GAP 16.3 mmol/L (5.0-14.0)
[2023-08-02] MEDS: cefTRIAXone 1 GM in Sodium Chloride 0.9% 50 ML IV ONE (19:23)
[2023-08-02] MEDS: Doxycycline 200 MG in Sodium Chloride 0.9% 250 ML IV ONE (20:20)
[2023-08-02] MEDS ORDERED: Ondansetron 4 MG Tab.DIS PO PRN (21:06)
[2023-08-02] MEDS ORDERED: Magnesium Hydroxide 400 MG/5 ML Susp 30 ML Cup PO PRN (21:06)
[2023-08-02] MEDS ORDERED: Albuterol 0.083% 2.5 MG/3 ML Neb Soln NEB PRN (21:06)
[2023-08-02] MEDS ORDERED: Ondansetron 4 MG/2 ML SDV IV PRN (21:06)
[2023-08-02] MEDS ORDERED: Glucagon,Human Recombinant 1 MG Vial IM PRN (21:52)
[2023-08-02] MEDS ORDERED: 50% Dextrose in Water 50 ML Syringe IVPUSH PRN (21:52)
[2023-08-02] MEDS ORDERED: Non-Formulary Medication 1 Each (Cyanocobalamin (Vitamin B-12) [Vitamin B-12] 1,000 MCG Ta IM SCH (22:00)
[2023-08-02] MEDS: Lactobacillus Rhamnosus GG (Probiotic) Cap PO SCH (22:02)
[2023-08-02 23:04] LABS: APPEARANCE,URINE CLEAR (CLEAR); BILIRUBIN,URINE SMALL (NEGATIVE); COLOR,URINE YELLOW (YELLOW); GLUCOSE,URINE NEGATIVE (NEGATIVE); KETONES,URINE 15 mg/dL (NEGATIVE); LEUKOCYTE ESTERASE,URINE TRACE (NEGATIVE); NITRITE,URINE NEGATIVE (NEGATIVE); OCCULT BLOOD,URINE NEGATIVE (NEGATIVE); PH,URINE 5.5 (5.0-8.0); PROTEIN,URINE NEGATIVE (NEGATIVE); UROBILINOGEN,URINE 0.2 EU/dL (0.2-1.0)
[2023-08-02 23:22] LABS: AMORPHOUS SEDIMENT,URINE NOT SEEN; BACTERIA,URINE MODERATE; EPITHELIAL CELLS,URINE MODERATE; MUCUS,URINE MODERATE; RBC,URINE 0-5 (0-5)
[2023-08-02] MEDS: Acetaminophen 325 MG Tab PO PRN (23:58)
[2023-08-02] MEDS: Melatonin 3 MG Tab PO PRN (23:58)
[2023-08-03 05:28] LABS: HEMATOCRIT 34.2 % (38.4-49.7); HEMOGLOBIN 11.7 g/dL (12.9-16.9); MEAN CORPUSCULAR HEMOGLOBIN 29.2 pg (31.6-35.5); MEAN CORPUSCULAR HGB CONC 34.2 g/dL (31.6-35.5); MEAN CORPUSCULAR VOLUME 85.3 fL (81.4-99.0); RED BLOOD CELL COUNT 4.01 M/uL (4.14-5.76); WHITE BLOOD CELL COUNT,WBC 9.7 K/uL (3.2-11.0)
[2023-08-03 05:58] LABS: ANION GAP 14.7 mmol/L (5.0-14.0); CALCIUM 8.8 mg/dL (8.5-10.1); CREATININE 1.4 mg/dL (0.8-1.3); EST CRCL DRUG DOSING (CG) 41.09 mL/min; POTASSIUM,K 4.7 mmol/L (3.6-5.2)
[2023-08-03] MEDS ORDERED: Doxycycline 100 MG in Sodium Chloride 0.9% 100 ML IV SCH (07:00)
[2023-08-03] MEDS: Albuterol/Ipratropium 3.0-0.5 MG/3 ML Neb Soln NEB SCH (07:09)
[2023-08-03] MEDS: Sodium Chloride 0.9% 1,000 ML IV SCH (07:45)
[2023-08-03] MEDS: Formoterol/Mometasone 200-5 MCG 8.8 GM Inhaler INH SCH (08:40)
[2023-08-03] MEDS: Insulin Lispro 100 Unit/ML 3 ML KwikPen SUBCUT SCH ×3 (08:47→17:41)
[2023-08-03] MEDS: Insulin Glargine,Human Rec. Analog 100 Units/ML 3 ML Pen SUBCUT SCH (08:48)
[2023-08-03] MEDS: Doxycycline 100 MG in Sodium Chloride 0.9% 100 ML IV SCH (08:52)
[2023-08-03] MEDS: Sotalol 80 MG Tab PO SCH (08:59)
[2023-08-03] MEDS: amLODIPine 5 MG Tab PO SCH (09:00)
[2023-08-03] MEDS: Magnesium Oxide 400 MG Tab PO SCH (09:00)
[2023-08-03] MEDS ORDERED: SELENIUM 100 MCG PO SCH (09:00)
[2023-08-03] MEDS: Furosemide 20 MG Tab PO SCH (09:00)
[2023-08-03] MEDS: Levothyroxine 112 MCG Tab PO SCH (09:00)
[2023-08-03] MEDS ORDERED: Non-Formulary Medication 1 Each (Zinc Gluconate [Zinc] 50 MG Tablet) PO SCH (09:00)
[2023-08-03] MEDS ORDERED: Formoterol/Mometasone 200-5 MCG 8.8 GM Inhaler INH SCH (09:00)
[2023-08-03] MEDS: Clopidogrel 75 MG Tab PO SCH (09:01)
[2023-08-03] MEDS: Rivaroxaban 10 MG Tab PO SCH (09:01)
[2023-08-03] MEDS: Vitamin B Complex Tab PO SCH (09:01)
[2023-08-03] MEDS: Insulin Lispro 100 Unit/ML 3 ML KwikPen SUBCUT ONE (12:01)
[2023-08-03] MEDS: cefTRIAXone 1 GM in Sodium Chloride 0.9% 50 ML IV SCH (17:42)
[2023-08-03] MEDS ORDERED: cefTRIAXone 1 GM in Sodium Chloride 0.9% 50 ML IV SCH (19:00)
[2023-08-03] MEDS: atorvaSTATin 10 MG Tab PO SCH (20:46)
[2023-08-03] MEDS ORDERED: IMIQUIMOD TP SCH (21:00)
[2023-08-03] MEDS: Sennosides/Docusate Sodium 50-8.6 MG Tab PO PRN (21:20)
[2023-08-04 06:32] LABS: ANION GAP 12.7 mmol/L (5.0-14.0); CREATININE 1.1 mg/dL (0.8-1.3); EST CRCL DRUG DOSING (CG) 52.29 mL/min; HEMATOCRIT 31.7 % (38.4-49.7); HEMOGLOBIN 10.9 g/dL (12.9-16.9); MEAN CORPUSCULAR HEMOGLOBIN 29.1 pg (31.6-35.5); MEAN CORPUSCULAR HGB CONC 34.4 g/dL (31.6-35.5); MEAN CORPUSCULAR VOLUME 84.8 fL (81.4-99.0); POTASSIUM,K 4.7 mmol/L (3.6-5.2); RED BLOOD CELL COUNT 3.74 M/uL (4.14-5.76); WHITE BLOOD CELL COUNT,WBC 6.7 K/uL (3.2-11.0)
[2023-08-04 06:33] LABS: CALCIUM 8.8 mg/dL (8.5-10.1); MAGNESIUM 2.2 mg/dL (1.8-2.4)
[2023-08-04] MEDS: oxyCODONE 5 MG Tab PO PRN (17:22)
[2023-08-05] MEDS: Doxycycline 100 MG Cap PO SCH (17:05)
[2023-08-05] MEDS: Cefdinir 300 MG Cap PO SCH (21:12)
[2023-08-06 11:31] VITALS: BP 163/96; PULSE 63
== END 2023-08-06 14:20 | disposition home or self-care (01) | DRG 193 ==
LOC: JP.ED 16:50 → JP.2SS 20:27 → JP.MS 08-03 16:37 → JP.2SS 08-03 16:37
PROVIDERS: ADMIT Registered Nurse; ATTEND Hospitalist
DX: J18.9 Pneumonia, unspecified organism (principal); J96.01 Acute respiratory failure with hypoxia; J44.0 Chronic obstructive pulmonary disease with (acute) lower respiratory infection; E78.00 Pure hypercholesterolemia, unspecified; R41.0 Disorientation, unspecified; I48.91 Unspecified atrial fibrillation; Z91.048 Other nonmedicinal substance allergy status; M19.90 Unspecified osteoarthritis, unspecified site; E11.59 Type 2 diabetes mellitus with other circulatory complications; I25.10 Atherosclerotic heart disease of native coronary artery without angina pectoris; I25.2 Old myocardial infarction; J44.9 Chronic obstructive pulmonary disease, unspecified; G31.84 Mild cognitive impairment of uncertain or unknown etiology; W06.XXXA Fall from bed, initial encounter; I08.3 Combined rheumatic disorders of mitral, aortic and tricuspid valves; E03.9 Hypothyroidism, unspecified; E11.649 Type 2 diabetes mellitus with hypoglycemia without coma; I11.0 Hypertensive heart disease with heart failure; I50.9 Heart failure, unspecified; Z95.1 Presence of aortocoronary bypass graft; Z79.4 Long term (current) use of insulin; Z88.8 Allergy status to other drugs, medicaments and biological substances; Z86.16 Personal history of COVID-19; Z98.890 Other specified postprocedural states; Z79.890 Hormone replacement therapy; Z79.899 Other long term (current) drug therapy; Z87.891 Personal history of nicotine dependence; Z91.018 Allergy to other foods
CPT/HCPCS: 36415; 70450; 71045 ×2; 72125; 73502 ×2; 76377; 80053; 80307; 82550; 83605; 83880; 84443; 84484; 85025; 85610; 93005; 93010; 96361; 96365; 96375; 99285 ×2; J0696; J1170; J2405; J3490 ×2; J7030; J7050; 80048; 81001; 82947; 83735; 85027; 87070; 87205; 94640; 97161-GP; 97165-GO; 97530-GP; A9270-GY; J1815; J1815-GY; J7620; U0002

== ENCOUNTER 2023-08-29 17:57 | Emergency (ER) | payer MEDICARE ==
[2023-08-29 18:04] VITALS: BP 186/90; PULSE 49
[2023-08-29 18:07] LABS: BASOPHILS ABSOLUTE AUTO 0.03 K/uL (0.00-0.10); BASOPHILS PERCENT AUTO 0.7 % (0.1-1.3); EOSINOPHILS ABSOLUTE AUTO 0.15 K/uL (0.00-0.40); EOSINOPHILS PERCENT AUTO 3.6 % (0.0-5.4); HEMATOCRIT 34.1 % (38.4-49.7); HEMOGLOBIN 11.8 g/dL (12.9-16.9); IMMATURE GRAN PERCENT AUTO 0.2 % (0.0-0.7); LYMPHOCYTES ABSOLUTE AUTO 1.03 K/uL (0.8-3.3); MEAN CORPUSCULAR HEMOGLOBIN 28.9 pg (31.6-35.5); MEAN CORPUSCULAR HGB CONC 34.6 g/dL (31.6-35.5); MEAN CORPUSCULAR VOLUME 83.6 fL (81.4-99.0); MONOCYTES ABSOLUTE AUTO 0.58 K/uL (0.20-0.90); MONOCYTES PERCENT AUTO 14.1 % (3.3-12.6); NEUTROPHILS ABSOLUTE AUTO 2.32 K/uL (1.0-7.6); NEUTROPHILS PERCENT AUTO 56.4 % (40.0-78.1); PLATELET COUNT,PLT 175 K/uL (130-375); RED BLOOD CELL COUNT 4.08 M/uL (4.14-5.76); WHITE BLOOD CELL COUNT,WBC 4.1 K/uL (3.2-11.0)
[2023-08-29 18:08] LABS: IMMATURE GRAN ABSOLUTE AUTO 0.01 K/uL (0.00-0.23)
[2023-08-29 18:15] LABS: CALCIUM 8.8 mg/dL (8.5-10.1); CREATININE 1.2 mg/dL (0.8-1.3); EST CRCL DRUG DOSING (CG) 49.4 mL/min; POTASSIUM,K 3.7 mmol/L (3.6-5.2)
[2023-08-29 18:16] LABS: ANION GAP 10.7 mmol/L (5.0-14.0)
== END 2023-08-29 19:57 | disposition home or self-care (01) ==
LOC: JP.ED 17:57
DX: E11.649 Type 2 diabetes mellitus with hypoglycemia without coma (principal); E78.00 Pure hypercholesterolemia, unspecified; I25.10 Atherosclerotic heart disease of native coronary artery without angina pectoris; I48.91 Unspecified atrial fibrillation; J44.9 Chronic obstructive pulmonary disease, unspecified; Z88.6 Allergy status to analgesic agent; Z91.048 Other nonmedicinal substance allergy status; Z91.018 Allergy to other foods; Z79.51 Long term (current) use of inhaled steroids; Z79.899 Other long term (current) drug therapy; Z79.4 Long term (current) use of insulin; Z79.01 Long term (current) use of anticoagulants; Z95.1 Presence of aortocoronary bypass graft; Z86.16 Personal history of COVID-19; Z87.891 Personal history of nicotine dependence
CPT/HCPCS: 36415; 70450; 72125; 76377; 80048; 82947; 85025; 99285

== ENCOUNTER 2023-09-12 14:32 | Emergency (ER) | payer MEDICARE ==
[2023-09-12 14:35] VITALS: BP 164/74
[2023-09-12 14:46] VITALS: PULSE 52
[2023-09-12 15:20] LABS: BASOPHILS ABSOLUTE AUTO 0.03 K/uL (0.00-0.10); BASOPHILS PERCENT AUTO 0.6 % (0.1-1.3); EOSINOPHILS ABSOLUTE AUTO 0.09 K/uL (0.00-0.40); EOSINOPHILS PERCENT AUTO 1.9 % (0.0-5.4); HEMATOCRIT 34.5 % (38.4-49.7); HEMOGLOBIN 11.9 g/dL (12.9-16.9); IMMATURE GRAN PERCENT AUTO 0.4 % (0.0-0.7); LYMPHOCYTES ABSOLUTE AUTO 0.63 K/uL (0.8-3.3); LYMPHOCYTES PERCENT AUTO 13.2 % (11.4-47.7); MEAN CORPUSCULAR HGB CONC 34.5 g/dL (31.6-35.5); MEAN CORPUSCULAR VOLUME 84.1 fL (81.4-99.0); MONOCYTES ABSOLUTE AUTO 0.45 K/uL (0.20-0.90); MONOCYTES PERCENT AUTO 9.4 % (3.3-12.6); NEUTROPHILS ABSOLUTE AUTO 3.57 K/uL (1.0-7.6); NEUTROPHILS PERCENT AUTO 74.5 % (40.0-78.1); PLATELET COUNT,PLT 200 K/uL (130-375); WHITE BLOOD CELL COUNT,WBC 4.8 K/uL (3.2-11.0)
[2023-09-12 15:21] LABS: IMMATURE GRAN ABSOLUTE AUTO 0.02 K/uL (0.00-0.23)
[2023-09-12 15:37] LABS: BLOOD UREA NITROGEN,BUN 14 mg/dL (7-18); CALCIUM 8.7 mg/dL (8.5-10.1); EST CRCL DRUG DOSING (CG) 59.28 mL/min; ESTIMATED GFR 74 mL/min (>60); GLUCOSE RANDOM 79 mg/dL (74-106)
== END 2023-09-12 16:45 | disposition home or self-care (01) ==
LOC: JP.ED 14:32
DX: E11.649 Type 2 diabetes mellitus with hypoglycemia without coma (principal); I10 Essential (primary) hypertension; I25.2 Old myocardial infarction; I25.10 Atherosclerotic heart disease of native coronary artery without angina pectoris; E78.00 Pure hypercholesterolemia, unspecified; J44.9 Chronic obstructive pulmonary disease, unspecified; Z86.16 Personal history of COVID-19; Z95.1 Presence of aortocoronary bypass graft; Z95.5 Presence of coronary angioplasty implant and graft; Z79.4 Long term (current) use of insulin; Z79.899 Other long term (current) drug therapy; Z88.8 Allergy status to other drugs, medicaments and biological substances; Z91.048 Other nonmedicinal substance allergy status; Z91.018 Allergy to other foods
CPT/HCPCS: 36415; 80048; 85025; 93005; 99285

== ENCOUNTER 2024-02-26 14:33 | Inpatient (IN) | payer MEDICARE ==
[2024-02-26 15:06] LABS: A/G RATIO 1.3 (1.2-2.2); ALANINE AMINOTRANSFERASE,ALT 21 U/L (12-78); ALBUMIN 3.7 g/dL (3.4-5.0); ALKALINE PHOSPHATASE 74 U/L (46-116); ASPARTATE AMNIOTRANSFERASE,AST 24 U/L (15-37); BASOPHILS ABSOLUTE AUTO 0.06 K/uL (0.00-0.10); BASOPHILS PERCENT AUTO 0.7 % (0.1-1.3); BILIRUBIN TOTAL 0.8 mg/dL (0.2-1.0); BLOOD UREA NITROGEN,BUN 16 mg/dL (7-18); CALCIUM 8.5 mg/dL (8.5-10.1); CARBON DIOXIDE,CO2 29 mmol/L (21-32); CHLORIDE,CL 99 mmol/L (100-108); CREATININE 1.1 mg/dL (0.8-1.3); EOSINOPHILS ABSOLUTE AUTO 0.12 K/uL (0.00-0.40); EOSINOPHILS PERCENT AUTO 1.5 % (0.0-5.4); ESTIMATED GFR 65 mL/min (>60); GLUCOSE RANDOM 157 mg/dL (74-106); HEMATOCRIT 36.5 % (38.4-49.7); HEMOGLOBIN 12.7 g/dL (12.9-16.9); IMMATURE GRAN ABSOLUTE AUTO 0.03 K/uL (0.00-0.23); IMMATURE GRAN PERCENT AUTO 0.4 % (0.0-0.7); LYMPHOCYTES ABSOLUTE AUTO 0.33 K/uL (0.8-3.3); MEAN CORPUSCULAR HEMOGLOBIN 30.4 pg (31.6-35.5); MEAN CORPUSCULAR HGB CONC 34.8 g/dL (31.6-35.5); MEAN CORPUSCULAR VOLUME 87.3 fL (81.4-99.0); MONOCYTES ABSOLUTE AUTO 0.52 K/uL (0.20-0.90); MONOCYTES PERCENT AUTO 6.3 % (3.3-12.6); NEUTROPHILS ABSOLUTE AUTO 7.14 K/uL (1.0-7.6); NEUTROPHILS PERCENT AUTO 87.1 % (40.0-78.1); PLATELET COUNT,PLT 198 K/uL (130-375); POTASSIUM,K 4.8 mmol/L (3.6-5.2); PROTEIN TOTAL,TP 6.6 g/dL (6.4-8.2); RED BLOOD CELL COUNT 4.18 M/uL (4.14-5.76); SODIUM,NA 136 mmol/L (140-148); WHITE BLOOD CELL COUNT,WBC 8.2 K/uL (3.2-11.0)
[2024-02-26 15:07] LABS: ANION GAP 12.8 mmol/L (5.0-14.0)
[2024-02-26] MEDS ORDERED: Ondansetron 4 MG Tab.DIS PO PRN (17:35)
[2024-02-26] MEDS ORDERED: Albuterol 0.083% 2.5 MG/3 ML Neb Soln NEB PRN (17:35)
[2024-02-26] MEDS ORDERED: Acetaminophen 325 MG Tab PO PRN (17:35)
[2024-02-26] MEDS ORDERED: Sennosides/Docusate Sodium 50-8.6 MG Tab PO PRN (17:35)
[2024-02-26] MEDS ORDERED: Benzonatate 100 MG Cap PO PRN (17:35)
[2024-02-26] MEDS ORDERED: Magnesium Hydroxide 400 MG/5 ML Susp 30 ML Cup PO PRN (17:35)
[2024-02-26] MEDS ORDERED: guaiFENesin/Dextromethorphan 100-10 MG/5 ML Soln 10 ML Cup PO PRN (17:35)
[2024-02-26] MEDS ORDERED: Ondansetron 4 MG/2 ML SDV IV PRN (17:35)
[2024-02-26] MEDS: cefTRIAXone 2 GM in Sodium Chloride 0.9% 50 ML IV SCH (18:24)
[2024-02-26] MEDS: Insulin Lispro 100 Unit/ML 3 ML KwikPen SUBCUT SCH (18:34)
[2024-02-26] MEDS: Rivaroxaban 10 MG Tab PO SCH (18:35)
[2024-02-26] MEDS: Doxycycline 100 MG Cap PO SCH (18:40)
[2024-02-26] MEDS: Sotalol 80 MG Tab PO SCH (21:11)
[2024-02-26] MEDS: Lactobacillus Rhamnosus GG (Probiotic) Cap PO SCH (21:16)
[2024-02-26] MEDS: atorvaSTATin 10 MG Tab PO SCH (21:17)
[2024-02-27 04:46] LABS: HEMATOCRIT 30.9 % (38.4-49.7); HEMOGLOBIN 10.9 g/dL (12.9-16.9); MEAN CORPUSCULAR HEMOGLOBIN 30.6 pg (31.6-35.5); MEAN CORPUSCULAR HGB CONC 35.3 g/dL (31.6-35.5); MEAN CORPUSCULAR VOLUME 86.8 fL (81.4-99.0); RED BLOOD CELL COUNT 3.56 M/uL (4.14-5.76); WHITE BLOOD CELL COUNT,WBC 14.3 K/uL (3.2-11.0)
[2024-02-27 05:06] LABS: CALCIUM 8.2 mg/dL (8.5-10.1); CREATININE 1.2 mg/dL (0.8-1.3); EST CRCL DRUG DOSING (CG) 47.06 mL/min; POTASSIUM,K 4.4 mmol/L (3.6-5.2)
[2024-02-27 05:15] LABS: ANION GAP 11.4 mmol/L (5.0-14.0)
[2024-02-27] MEDS: Insulin Glargine,Human Rec. Analog 100 Units/ML 3 ML Pen SUBCUT SCH (08:08)
[2024-02-27] MEDS: Clopidogrel 75 MG Tab PO SCH (08:09)
[2024-02-27] MEDS: Levothyroxine 112 MCG Tab PO SCH (08:09)
[2024-02-28 05:11] LABS: HEMATOCRIT 30.3 % (38.4-49.7); HEMOGLOBIN 10.3 g/dL (12.9-16.9); MEAN CORPUSCULAR HEMOGLOBIN 30.2 pg (31.6-35.5); MEAN CORPUSCULAR VOLUME 88.9 fL (81.4-99.0); RED BLOOD CELL COUNT 3.41 M/uL (4.14-5.76); WHITE BLOOD CELL COUNT,WBC 9.7 K/uL (3.2-11.0)
[2024-02-28 05:27] LABS: CALCIUM 8.4 mg/dL (8.5-10.1); CREATININE 1.1 mg/dL (0.8-1.3); EST CRCL DRUG DOSING (CG) 51.34 mL/min
[2024-02-29 11:34] VITALS: BP 119/57; PULSE 52
== END 2024-02-29 12:15 | disposition home or self-care (01) | DRG 193 ==
LOC: JP.ED 14:33 → JP.MS 16:34
PROVIDERS: ADMIT Internal Medicine; ATTEND Hospitalist
PROC: 5A09357 Assistance with Respiratory Ventilation, Less than 24 Consecutive Hours, Continuous Positive Airway Pressure (ICD-10-PCS; principal; 2024-02-29)
PROC: 5A12012 Performance of Cardiac Output, Single, Manual (ICD-10-PCS; 2024-02-29)
DX: J18.9 Pneumonia, unspecified organism (principal); J18.8 Other pneumonia, unspecified organism; I50.9 Heart failure, unspecified; J96.01 Acute respiratory failure with hypoxia; J44.0 Chronic obstructive pulmonary disease with (acute) lower respiratory infection; H26.9 Unspecified cataract; I48.91 Unspecified atrial fibrillation; J44.9 Chronic obstructive pulmonary disease, unspecified; H91.90 Unspecified hearing loss, unspecified ear; H54.7 Unspecified visual loss; I11.0 Hypertensive heart disease with heart failure; I25.10 Atherosclerotic heart disease of native coronary artery without angina pectoris; Z79.890 Hormone replacement therapy; Z79.899 Other long term (current) drug therapy; Z79.4 Long term (current) use of insulin; E78.00 Pure hypercholesterolemia, unspecified; Z91.09 Other allergy status, other than to drugs and biological substances; Z91.018 Allergy to other foods; Z91.048 Other nonmedicinal substance allergy status; I25.2 Old myocardial infarction; F10.90 Alcohol use, unspecified, uncomplicated; M19.90 Unspecified osteoarthritis, unspecified site; E11.9 Type 2 diabetes mellitus without complications; I50.89 Other heart failure; I48.0 Paroxysmal atrial fibrillation; Z79.01 Long term (current) use of anticoagulants; Z72.0 Tobacco use; Z85.89 Personal history of malignant neoplasm of other organs and systems; Z95.5 Presence of coronary angioplasty implant and graft; Z95.1 Presence of aortocoronary bypass graft; Z86.16 Personal history of COVID-19; Z90.49 Acquired absence of other specified parts of digestive tract; Z96.659 Presence of unspecified artificial knee joint; Z88.8 Allergy status to other drugs, medicaments and biological substances
CPT/HCPCS: 36415; 71045; 71045-26; 80048; 80053; 82947; 84484; 85025; 85027; 86140; 87428-QW; 93005; 93010; 97161-GP; 99222; 99232; 99238; 99285; A9270-GY; J0696; J1815; J1815-GY; J3490

== ENCOUNTER 2024-05-10 18:27 | Observation (INO) | payer MEDICARE ==
[2024-05-10 19:43] LABS: BASE EXCESS VENOUS 0.3 mm/L; BASOPHILS ABSOLUTE AUTO 0.03 K/uL (0.00-0.10); BASOPHILS PERCENT AUTO 0.4 % (0.1-1.3); BICARBONATE,VENOUS 23.7 mmol/L; CARBOXYHEMOGLOBIN 2.4 % (0.0-1.6); EOSINOPHILS ABSOLUTE AUTO 0.05 K/uL (0.00-0.40); EOSINOPHILS PERCENT AUTO 0.7 % (0.0-5.4); HEMATOCRIT 36.9 % (38.4-49.7); HEMOGLOBIN 12.7 g/dL (12.9-16.9); IMMATURE GRAN ABSOLUTE AUTO 0.03 K/uL (0.00-0.23); IMMATURE GRAN PERCENT AUTO 0.4 % (0.0-0.7); LYMPHOCYTES ABSOLUTE AUTO 0.62 K/uL (0.8-3.3); LYMPHOCYTES PERCENT AUTO 8.6 % (11.4-47.7); MEAN CORPUSCULAR HGB CONC 34.4 g/dL (31.6-35.5); MEAN CORPUSCULAR VOLUME 87.2 fL (81.4-99.0); METHEMOGLOBIN 1.3 %; MONOCYTES ABSOLUTE AUTO 0.63 K/uL (0.20-0.90); MONOCYTES PERCENT AUTO 8.8 % (3.3-12.6); NEUTROPHILS ABSOLUTE AUTO 5.81 K/uL (1.0-7.6); NEUTROPHILS PERCENT AUTO 81.1 % (40.0-78.1); O2 SATURATION VENOUS 90.2; OXYHEMOGLOBIN 86.9 %; PCO2 VENOUS 36.2 mm/Hg; PH,VENOUS 7.433 (7.350-7.450); PLATELET COUNT,PLT 175 K/uL (130-375); RED BLOOD CELL COUNT 4.23 M/uL (4.14-5.76); TOTAL HEMOGLOBIN 13.1 g/dL (13.5-18.0); WHITE BLOOD CELL COUNT,WBC 7.2 K/uL (3.2-11.0)
[2024-05-10] MEDS: Sodium Chloride 0.9% 1,000 ML IV SCH (19:43)
[2024-05-10 19:45] LABS: PO2 VENOUS 61.8 mm/Hg
[2024-05-10] MEDS: Loperamide 1 MG/7.5 ML 7.5 ML UD Cup PO ONE (20:09)
[2024-05-10 20:10] LABS: A/G RATIO 1.4 (1.2-2.2); ALANINE AMINOTRANSFERASE,ALT 24 U/L (12-78); ALBUMIN 3.7 g/dL (3.4-5.0); ALKALINE PHOSPHATASE 87 U/L (46-116); ASPARTATE AMNIOTRANSFERASE,AST 27 U/L (15-37); BILIRUBIN TOTAL 0.7 mg/dL (0.2-1.0); BLOOD UREA NITROGEN,BUN 15 mg/dL (7-18); CARBON DIOXIDE,CO2 25 mmol/L (21-32); CHLORIDE,CL 101 mmol/L (100-108); CREATININE 1.1 mg/dL (0.8-1.3); EST CRCL DRUG DOSING (CG) 51.34 mL/min; ESTIMATED GFR 65 mL/min (>60); POTASSIUM,K 3.8 mmol/L (3.6-5.2); PROTEIN TOTAL,TP 6.4 g/dL (6.4-8.2); SODIUM,NA 138 mmol/L (140-148); TROPONIN I HIGH SENSITIVITY 20.3 pg/mL (<=60.3)
[2024-05-10] MEDS: diphenhydrAMINE 50 MG/ML SDV IVPUSH ONE (20:11)
[2024-05-10 20:15] LABS: ANION GAP 15.8 mmol/L (5.0-14.0)
[2024-05-10 20:17] LABS: GLUCOSE RANDOM 416 mg/dL (74-106)
[2024-05-10] MEDS ORDERED: Glucagon,Human Recombinant 1 MG Vial IM PRN (20:39)
[2024-05-10] MEDS ORDERED: 50% Dextrose in Water 50 ML Syringe IVPUSH PRN (20:39)
[2024-05-10] MEDS: Insulin Regular, Human 100 Units/ML 10 ML Vial SUBCUT ONE (21:03)
[2024-05-10 21:33] LABS: APPEARANCE,URINE CLEAR (CLEAR); BILIRUBIN,URINE NEGATIVE (NEGATIVE); COLOR,URINE YELLOW (YELLOW); GLUCOSE,URINE 500 mg/dL (NEGATIVE); KETONES,URINE NEGATIVE (NEGATIVE); LEUKOCYTE ESTERASE,URINE NEGATIVE (NEGATIVE); NITRITE,URINE NEGATIVE (NEGATIVE); OCCULT BLOOD,URINE NEGATIVE (NEGATIVE); PH,URINE 5.5 (5.0-8.0); PROTEIN,URINE NEGATIVE (NEGATIVE); UROBILINOGEN,URINE 0.2 EU/dL (0.2-1.0)
[2024-05-10 21:40] LABS: AMORPHOUS SEDIMENT,URINE NOT SEEN; BACTERIA,URINE FEW; EPITHELIAL CELLS,URINE NOT SEEN; MUCUS,URINE NOT SEEN; RBC,URINE 0-5 (0-5); WBC,URINE 0-5 (0-5)
[2024-05-11] MEDS ORDERED: Acetaminophen 325 MG Tab PO PRN (01:59)
[2024-05-11] MEDS ORDERED: Melatonin 3 MG Tab PO PRN (01:59)
[2024-05-11] MEDS ORDERED: Ondansetron 4 MG/2 ML SDV IV PRN (01:59)
[2024-05-11] MEDS ORDERED: Ondansetron 4 MG Tab.DIS PO PRN (01:59)
[2024-05-11] MEDS: Sodium Chloride 0.9% 1,000 ML IV SCH (02:45)
[2024-05-11] MEDS: 50% Dextrose in Water 50 ML Syringe IV PRN (03:15)
[2024-05-11] MEDS: 50% Dextrose in Water 50 ML Syringe ONE (03:50)
[2024-05-11] MEDS: Dextrose 5%-0.9% NaCl 1,000 ML IV SCH (04:44)
[2024-05-11 05:48] LABS: HEMATOCRIT 33.1 % (38.4-49.7); HEMOGLOBIN 11.2 g/dL (12.9-16.9); MEAN CORPUSCULAR HEMOGLOBIN 29.9 pg (31.6-35.5); MEAN CORPUSCULAR HGB CONC 33.8 g/dL (31.6-35.5); MEAN CORPUSCULAR VOLUME 88.3 fL (81.4-99.0); RED BLOOD CELL COUNT 3.75 M/uL (4.14-5.76); WHITE BLOOD CELL COUNT,WBC 6.5 K/uL (3.2-11.0)
[2024-05-11 06:18] LABS: CALCIUM 8.8 mg/dL (8.5-10.1); CREATININE 0.8 mg/dL (0.8-1.3); EST CRCL DRUG DOSING (CG) 70.59 mL/min; MAGNESIUM 1.6 mg/dL (1.8-2.4); POTASSIUM,K 3.4 mmol/L (3.6-5.2); TSH ULTRASENSITIVE 1.811 uIU/mL (0.358-3.740)
[2024-05-11 06:19] LABS: ANION GAP 12.4 mmol/L (5.0-14.0)
[2024-05-11] MEDS: Insulin Lispro 100 Unit/ML 3 ML KwikPen SUBCUT SCH (08:16)
[2024-05-11] MEDS: Ciprofloxacin in D5W 400 MG in Premix Bag 1 BAG IV SCH (10:23)
[2024-05-11] MEDS: Magnesium Oxide 400 MG Tab PO SCH (10:24)
[2024-05-11] MEDS: Lactobacillus Rhamnosus GG (Probiotic) Cap PO SCH (10:24)
[2024-05-11] MEDS: Potassium Chloride 20 MEQ Tab.ER PO ONE ×2 (10:24→16:56)
[2024-05-11] MEDS ORDERED: Glucagon,Human Recombinant 1 MG Vial IM PRN (10:50)
[2024-05-11] MEDS ORDERED: 50% Dextrose in Water 50 ML Syringe IVPUSH PRN (10:50)
[2024-05-11] MEDS: Magnesium Sulf/Wat 2 GM/50 mL 2 GM in Premix Bag 1 BAG IV SCH (11:28)
[2024-05-11] MEDS: metroNIDAZOLE/Normal Saline 500 MG in Premix Bag 1 BAG IV SCH (11:34)
[2024-05-11] MEDS: Insulin Glargine,Human Rec. Analog 100 Units/ML 3 ML Pen SUBCUT SCH (12:45)
[2024-05-11] MEDS: Loperamide 2 MG Cap PO PRN (13:43)
[2024-05-11] MEDS: Rivaroxaban 10 MG Tab PO SCH (16:56)
[2024-05-12] MEDS: 50% Dextrose in Water 50 ML Syringe IV PRN (03:21)
[2024-05-12 06:16] LABS: HEMOGLOBIN A1C 7.7 % (4.5-6.2)
[2024-05-12 06:31] LABS: CALCIUM 8.7 mg/dL (8.5-10.1); CREATININE 0.9 mg/dL (0.8-1.3); EST CRCL DRUG DOSING (CG) 62.75 mL/min; POTASSIUM,K 4.4 mmol/L (3.6-5.2)
[2024-05-12] MEDS: Insulin Glargine,Human Rec. Analog 100 Units/ML 3 ML Pen SUBCUT SCH (09:13)
[2024-05-12] MEDS: XARELTO 20 MG PO SCH (16:48)
[2024-05-13 06:30] VITALS: BP 138/72; PULSE 67
[2024-05-13] MEDS: metroNIDAZOLE 250 MG Tab PO SCH (09:12)
[2024-05-13] MEDS: Ciprofloxacin 500 MG Tab PO SCH (09:12)
[2024-05-13] MEDS: Magnesium Sulf/Wat 2 GM/50 mL 2 GM in Premix Bag 1 BAG IV SCH (09:12)
== END 2024-05-13 13:04 | disposition home or self-care (01) ==
LOC: JP.ED 18:27 → JP.MS 05-11 01:37
PROVIDERS: ADMIT Registered Nurse; ATTEND Hospitalist
DX: E86.0 Dehydration (principal); E11.65 Type 2 diabetes mellitus with hyperglycemia; E11.59 Type 2 diabetes mellitus with other circulatory complications; R19.7 Diarrhea, unspecified; R53.1 Weakness; I11.0 Hypertensive heart disease with heart failure; I50.32 Chronic diastolic (congestive) heart failure; G30.1 Alzheimer's disease with late onset; F02.B0 Dementia in other diseases classified elsewhere, moderate, without behavioral disturbance, psychotic disturbance, mood disturbance, and anxiety; I25.10 Atherosclerotic heart disease of native coronary artery without angina pectoris; E78.00 Pure hypercholesterolemia, unspecified; Z79.4 Long term (current) use of insulin; Z88.8 Allergy status to other drugs, medicaments and biological substances; Z91.09 Other allergy status, other than to drugs and biological substances; Z79.899 Other long term (current) drug therapy; Z79.890 Hormone replacement therapy; Z87.891 Personal history of nicotine dependence
CPT/HCPCS: 36415; 72100; 72170; 80048; 80053; 81001; 82550; 82803; 82947; 83036; 83605; 83735; 84443; 84484; 85025; 85027; 87046; 87177; 87209; 87427; 87493; 93005; 93010; 96361; 96365; 96366; 96367; 96375; 96376; 97129; 97130; 97162; 97165; 97530; 99222; 99232; 99238; 99285; A9270; G0378; J0744; J1200; J1815; J1836; J3475; J7030; 96374

== ENCOUNTER 2024-10-17 20:39 | Emergency (ER) | payer MEDICARE ==
[2024-10-17 23:08] LABS: BASOPHILS ABSOLUTE AUTO 0.05 K/uL (0.00-0.10); BASOPHILS PERCENT AUTO 1.0 % (0.1-1.3); EOSINOPHILS ABSOLUTE AUTO 0.36 K/uL (0.00-0.40); EOSINOPHILS PERCENT AUTO 7.3 % (0.0-5.4); IMMATURE GRAN ABSOLUTE AUTO 0.04 K/uL (0.00-0.23); IMMATURE GRAN PERCENT AUTO 0.8 % (0.0-0.7); LYMPHOCYTES ABSOLUTE AUTO 0.94 K/uL (0.8-3.3); LYMPHOCYTES PERCENT AUTO 19.0 % (11.4-47.7); MONOCYTES ABSOLUTE AUTO 0.47 K/uL (0.20-0.90); MONOCYTES PERCENT AUTO 9.5 % (3.3-12.6); NEUTROPHILS ABSOLUTE AUTO 3.10 K/uL (1.0-7.6); NEUTROPHILS PERCENT AUTO 62.4 % (40.0-78.1); PLATELET COUNT,PLT 166 K/uL (130-375); RED BLOOD CELL COUNT 3.88 M/uL (4.14-5.76); WHITE BLOOD CELL COUNT,WBC 5.0 K/uL (3.2-11.0)
[2024-10-17 23:41] LABS: BLOOD UREA NITROGEN,BUN 15.0 mg/dL (7-18); CARBON DIOXIDE,CO2 29.0 mmol/L (21-32); CHLORIDE,CL 99.0 mmol/L (100-108); CREATININE 1.0 mg/dL (0.8-1.3); EST CRCL DRUG DOSING (CG) 56.48 mL/min; ESTIMATED GFR 73.0 mL/min (>60); GLUCOSE RANDOM 251.0 mg/dL (74-106); POTASSIUM,K 4.6 mmol/L (3.6-5.2); SODIUM,NA 134.0 mmol/L (140-148)
[2024-10-17] MEDS: Iopamidol 612 MG/ML 100 ML Bottle IV SCH (23:41)
[2024-10-18 00:59] VITALS: BP 167/76; PULSE 50
== END 2024-10-18 00:58 | disposition home or self-care (01) ==
LOC: JP.ED 20:39
DX: S51.011A Laceration without foreign body of right elbow, initial encounter (principal); I10 Essential (primary) hypertension; I48.91 Unspecified atrial fibrillation; I25.10 Atherosclerotic heart disease of native coronary artery without angina pectoris; I25.2 Old myocardial infarction; E78.00 Pure hypercholesterolemia, unspecified; E11.9 Type 2 diabetes mellitus without complications; J44.89 Other specified chronic obstructive pulmonary disease; M19.90 Unspecified osteoarthritis, unspecified site; Z79.899 Other long term (current) drug therapy; Z79.51 Long term (current) use of inhaled steroids; Z79.1 Long term (current) use of non-steroidal anti-inflammatories (NSAID); Z79.890 Hormone replacement therapy; Z88.8 Allergy status to other drugs, medicaments and biological substances; W19.XXXA Unspecified fall, initial encounter
CPT/HCPCS: 36415; 71101; 73080; 74177; 80048; 85025; 99284; Q9967

== ENCOUNTER 2024-10-24 18:30 | Inpatient (IN) | payer MEDICAID, MEDICARE ==
[2024-10-24 18:36] LABS: PLATELET COUNT,PLT 221 K/uL (130-375); RED BLOOD CELL COUNT 4.60 M/uL (4.14-5.76); WHITE BLOOD CELL COUNT,WBC 6.5 K/uL (3.2-11.0)
[2024-10-24] MEDS: LORazepam 2 MG/ML SDV IVPUSH ONE (18:47)
[2024-10-24] MEDS: Ondansetron 4 MG/2 ML SDV IVPUSH ONE (18:47)
[2024-10-24 18:49] LABS: BASE EXCESS ARTERIAL -3.3 mm/L; BICARBONATE,ARTERIAL 22.5 mmol/L (22.0-26.0); O2 SATURATION ARTERIAL 83.2 % (95.0-98.0); OXYHEMOGLOBIN 81.3 %; PCO2 ARTERIAL 45.6 mmHg (35.0-42.0); PO2 ARTERIAL 52.9 mmHg (75.0-100.0); TOTAL HEMOGLOBIN 13.8 g/dL (13.5-18.0)
[2024-10-24 18:59] LABS: INR 1.1
[2024-10-24 19:00] LABS: ATYPICAL LYMPHOCYTES RARE; BAND ABSOLUTE MAN 0.59 K/uL; BAND PERCENT MAN 9 % (5-11); EOSINOPHILS ABSOLUTE MAN 0.07 K/uL (0.00-0.40); EOSINOPHILS PERCENT MAN 1 % (2-4); LYMPHOCYTES ABSOLUTE MAN 0.65 K/uL (0.8-3.3); LYMPHOCYTES PERCENT MAN 10 % (24-44); METAMYELOCYTE ABSOLUTE MAN 0.07 K/uL; METAMYELOCYTE PERCENT MAN 1 %; MONOCYTES ABSOLUTE MAN 0.20 K/uL (0.20-0.90); MONOCYTES PERCENT MAN 3 % (2-6); NEUTROPHILS ABSOLUTE MAN 4.94 K/uL (1.0-7.6); SEG NEUTROPHILS PERCENT MAN 76 % (36-66)
[2024-10-24 19:03] LABS: A/G RATIO 1.3 (1.2-2.2); ALANINE AMINOTRANSFERASE,ALT 32 U/L (12-78); ASPARTATE AMNIOTRANSFERASE,AST 25 U/L (15-37); BILIRUBIN TOTAL 1.0 mg/dL (0.2-1.0); BLOOD UREA NITROGEN,BUN 16 mg/dL (7-18); CARBON DIOXIDE,CO2 28 mmol/L (21-32); CHLORIDE,CL 100 mmol/L (100-108); CREATININE 0.9 mg/dL (0.8-1.3); ESTIMATED GFR 83 mL/min (>60); GLUCOSE RANDOM 142 mg/dL (74-106); POTASSIUM,K 4.1 mmol/L (3.6-5.2); PROTEIN TOTAL,TP 7.3 g/dL (6.4-8.2); SODIUM,NA 138 mmol/L (140-148)
[2024-10-24 19:13] LABS: PRO B-TYPE NATRIUR PEPT,BNPPRO 2639.0 pg/mL (5-450); TROPONIN I HIGH SENSITIVITY 31.1 pg/mL (<=60.3)
[2024-10-24] MEDS: Norepinephrine Bit/D5W Premix 4 MG in Premix Bag 1 BAG IV SCH (20:01)
[2024-10-24] MEDS ORDERED: 50% Dextrose in Water 50 ML Syringe IVPUSH PRN (21:31)
[2024-10-24 22:22] LABS: BASE EXCESS ARTERIAL 1.1 mm/L; BICARBONATE,ARTERIAL 23.5 mmol/L (22.0-26.0); O2 SATURATION ARTERIAL 98.6 % (95.0-98.0); OXYHEMOGLOBIN 95.4 %; PCO2 ARTERIAL 31.7 mmHg (35.0-42.0); PO2 ARTERIAL 99.0 mmHg (75.0-100.0); TOTAL HEMOGLOBIN 12.9 g/dL (13.5-18.0)
[2024-10-24] MEDS: Furosemide 40 MG/4 ML VIAL IVPUSH ONE (22:37)
[2024-10-25 05:57] LABS: PLATELET COUNT,PLT 188 K/uL (130-375); RED BLOOD CELL COUNT 3.81 M/uL (4.14-5.76); WHITE BLOOD CELL COUNT,WBC 12.4 K/uL (3.2-11.0)
[2024-10-25 06:14] LABS: A/G RATIO 1.2 (1.2-2.2); ALANINE AMINOTRANSFERASE,ALT 27 U/L (12-78); ASPARTATE AMNIOTRANSFERASE,AST 34 U/L (15-37); BILIRUBIN TOTAL 1.2 mg/dL (0.2-1.0); BLOOD UREA NITROGEN,BUN 17 mg/dL (7-18); CARBON DIOXIDE,CO2 28 mmol/L (21-32); CHLORIDE,CL 102 mmol/L (100-108); CREATININE 0.9 mg/dL (0.8-1.3); EST CRCL DRUG DOSING (CG) 58.92 mL/min; ESTIMATED GFR 83 mL/min (>60); GLUCOSE RANDOM 137 mg/dL (74-106); POTASSIUM,K 4.5 mmol/L (3.6-5.2); PROTEIN TOTAL,TP 5.8 g/dL (6.4-8.2); SODIUM,NA 135 mmol/L (140-148)
[2024-10-25 06:22] LABS: BAND ABSOLUTE MAN 0.74 K/uL; BAND PERCENT MAN 6 % (5-11); LYMPHOCYTES ABSOLUTE MAN 0.99 K/uL (0.8-3.3); LYMPHOCYTES PERCENT MAN 8 % (24-44); MONOCYTES ABSOLUTE MAN 0.74 K/uL (0.20-0.90); MONOCYTES PERCENT MAN 6 % (2-6); NEUTROPHILS ABSOLUTE MAN 9.92 K/uL (1.0-7.6); SEG NEUTROPHILS PERCENT MAN 80 % (36-66)
[2024-10-25] MEDS: Insulin Lispro 100 Unit/ML 3 ML KwikPen SUBCUT SCH (12:14)
[2024-10-25] MEDS ORDERED: Insulin Glargine,Human Rec. Analog 100 Units/ML 3 ML Pen SUBCUT SCH (21:00)
[2024-10-26 05:57] LABS: PLATELET COUNT,PLT 138 K/uL (130-375); RED BLOOD CELL COUNT 3.48 M/uL (4.14-5.76); WHITE BLOOD CELL COUNT,WBC 10.1 K/uL (3.2-11.0)
[2024-10-26 06:18] LABS: A/G RATIO 1.1 (1.2-2.2); ALANINE AMINOTRANSFERASE,ALT 26 U/L (12-78); ASPARTATE AMNIOTRANSFERASE,AST 27 U/L (15-37); BILIRUBIN TOTAL 1.1 mg/dL (0.2-1.0); BLOOD UREA NITROGEN,BUN 18 mg/dL (7-18); CARBON DIOXIDE,CO2 26 mmol/L (21-32); CHLORIDE,CL 100 mmol/L (100-108); CREATININE 0.9 mg/dL (0.8-1.3); EST CRCL DRUG DOSING (CG) 58.92 mL/min; ESTIMATED GFR 83 mL/min (>60); GLUCOSE RANDOM 342 mg/dL (74-106); POTASSIUM,K 4.5 mmol/L (3.6-5.2); PROTEIN TOTAL,TP 5.7 g/dL (6.4-8.2); SODIUM,NA 133 mmol/L (140-148)
[2024-10-26 06:21] LABS: BAND ABSOLUTE MAN 1.01 K/uL; BAND PERCENT MAN 10 % (5-11); EOSINOPHILS ABSOLUTE MAN 0.40 K/uL (0.00-0.40); EOSINOPHILS PERCENT MAN 4 % (2-4); LYMPHOCYTES ABSOLUTE MAN 0.81 K/uL (0.8-3.3); LYMPHOCYTES PERCENT MAN 8 % (24-44); MONOCYTES ABSOLUTE MAN 0.20 K/uL (0.20-0.90); MONOCYTES PERCENT MAN 2 % (2-6); NEUTROPHILS ABSOLUTE MAN 7.68 K/uL (1.0-7.6); SEG NEUTROPHILS PERCENT MAN 76 % (36-66)
[2024-10-26] MEDS ORDERED: 50% Dextrose in Water 50 ML Syringe IVPUSH PRN (08:42)
[2024-10-26] MEDS: Insulin Glargine,Human Rec. Analog 100 Units/ML 3 ML Pen SUBCUT SCH (09:48)
[2024-10-27 05:38] LABS: BASOPHILS ABSOLUTE AUTO 0.05 K/uL (0.00-0.10); BASOPHILS PERCENT AUTO 0.6 % (0.1-1.3); EOSINOPHILS ABSOLUTE AUTO 0.43 K/uL (0.00-0.40); EOSINOPHILS PERCENT AUTO 5.5 % (0.0-5.4); IMMATURE GRAN PERCENT AUTO 0.3 % (0.0-0.7); LYMPHOCYTES ABSOLUTE AUTO 0.82 K/uL (0.8-3.3); LYMPHOCYTES PERCENT AUTO 10.5 % (11.4-47.7); MONOCYTES ABSOLUTE AUTO 0.52 K/uL (0.20-0.90); MONOCYTES PERCENT AUTO 6.6 % (3.3-12.6); NEUTROPHILS ABSOLUTE AUTO 5.98 K/uL (1.0-7.6); NEUTROPHILS PERCENT AUTO 76.5 % (40.0-78.1); PLATELET COUNT,PLT 138 K/uL (130-375); RED BLOOD CELL COUNT 3.42 M/uL (4.14-5.76); WHITE BLOOD CELL COUNT,WBC 7.8 K/uL (3.2-11.0)
[2024-10-27 05:39] LABS: IMMATURE GRAN ABSOLUTE AUTO 0.02 K/uL (0.00-0.23)
[2024-10-27 06:01] LABS: A/G RATIO 1.0 (1.2-2.2); ALANINE AMINOTRANSFERASE,ALT 26 U/L (12-78); ASPARTATE AMNIOTRANSFERASE,AST 22 U/L (15-37); BILIRUBIN TOTAL 1.0 mg/dL (0.2-1.0); BLOOD UREA NITROGEN,BUN 14 mg/dL (7-18); CARBON DIOXIDE,CO2 29 mmol/L (21-32); CHLORIDE,CL 101 mmol/L (100-108); CREATININE 0.7 mg/dL (0.8-1.3); EST CRCL DRUG DOSING (CG) 75.75 mL/min; ESTIMATED GFR 90 mL/min (>60); GLUCOSE RANDOM 184 mg/dL (74-106); POTASSIUM,K 4.2 mmol/L (3.6-5.2); PROTEIN TOTAL,TP 5.7 g/dL (6.4-8.2); SODIUM,NA 133 mmol/L (140-148)
[2024-10-27] MEDS ORDERED: 50% Dextrose in Water 50 ML Syringe IVPUSH PRN ×2 (12:26→13:43)
[2024-10-27] MEDS: Insulin Lispro 100 Unit/ML 3 ML KwikPen SUBCUT ONE (14:13)
[2024-10-27] MEDS: Insulin Lispro 100 Unit/ML 3 ML KwikPen SUBCUT SCH (16:57)
[2024-10-28 05:29] LABS: BASOPHILS ABSOLUTE AUTO 0.04 K/uL (0.00-0.10); BASOPHILS PERCENT AUTO 0.7 % (0.1-1.3); EOSINOPHILS ABSOLUTE AUTO 0.53 K/uL (0.00-0.40); EOSINOPHILS PERCENT AUTO 9.4 % (0.0-5.4); IMMATURE GRAN ABSOLUTE AUTO 0.03 K/uL (0.00-0.23); IMMATURE GRAN PERCENT AUTO 0.5 % (0.0-0.7); LYMPHOCYTES ABSOLUTE AUTO 0.96 K/uL (0.8-3.3); LYMPHOCYTES PERCENT AUTO 17.0 % (11.4-47.7); MONOCYTES ABSOLUTE AUTO 0.29 K/uL (0.20-0.90); MONOCYTES PERCENT AUTO 5.1 % (3.3-12.6); NEUTROPHILS ABSOLUTE AUTO 3.81 K/uL (1.0-7.6); NEUTROPHILS PERCENT AUTO 67.3 % (40.0-78.1); PLATELET COUNT,PLT 161 K/uL (130-375); RED BLOOD CELL COUNT 3.43 M/uL (4.14-5.76); WHITE BLOOD CELL COUNT,WBC 5.7 K/uL (3.2-11.0)
[2024-10-28 05:53] LABS: A/G RATIO 1.0 (1.2-2.2); ALANINE AMINOTRANSFERASE,ALT 30 U/L (12-78); ASPARTATE AMNIOTRANSFERASE,AST 21 U/L (15-37); BILIRUBIN TOTAL 1.0 mg/dL (0.2-1.0); BLOOD UREA NITROGEN,BUN 16 mg/dL (7-18); CARBON DIOXIDE,CO2 28 mmol/L (21-32); CHLORIDE,CL 101 mmol/L (100-108); CREATININE 0.7 mg/dL (0.8-1.3); EST CRCL DRUG DOSING (CG) 75.75 mL/min; ESTIMATED GFR 90 mL/min (>60); GLUCOSE RANDOM 89 mg/dL (74-106); POTASSIUM,K 4.0 mmol/L (3.6-5.2); PROTEIN TOTAL,TP 5.7 g/dL (6.4-8.2); SODIUM,NA 136 mmol/L (140-148)
[2024-10-28] MEDS ORDERED: Sennosides/Docusate Sodium 50-8.6 MG Tab PO PRN (19:48)
[2024-10-28] MEDS ORDERED: Magnesium Hydroxide 400 MG/5 ML Susp 30 ML Cup PO PRN (19:48)
[2024-10-31] MEDS: Insulin Glargine,Human Rec. Analog 100 Units/ML 3 ML Pen SUBCUT SCH (08:00)
[2024-10-31 23:28] VITALS: PULSE 65
[2024-11-01 05:15] VITALS: BP 153/69
[2024-11-01] MEDS: Insulin Glargine,Human Rec. Analog 100 Units/ML 3 ML Pen SUBCUT SCH (09:22)
== END 2024-11-01 10:36 | DRG 871 ==
LOC: JP.ED 18:30 → JP.ICU 20:50 → JP.MS 10-27 10:50
PROVIDERS: ADMIT Student in an Organized Health Care Education/Training Program; ATTEND Internal Medicine
DX: A41.9 Sepsis, unspecified organism (principal); J18.9 Pneumonia, unspecified organism; R65.21 Severe sepsis with septic shock; J96.01 Acute respiratory failure with hypoxia; I50.9 Heart failure, unspecified; I50.32 Chronic diastolic (congestive) heart failure; E87.20 Acidosis, unspecified; I11.0 Hypertensive heart disease with heart failure; E78.00 Pure hypercholesterolemia, unspecified; Z66 Do not resuscitate; H26.9 Unspecified cataract; H91.90 Unspecified hearing loss, unspecified ear; E11.9 Type 2 diabetes mellitus without complications; H54.7 Unspecified visual loss; I25.10 Atherosclerotic heart disease of native coronary artery without angina pectoris; I48.0 Paroxysmal atrial fibrillation; I48.91 Unspecified atrial fibrillation; I25.2 Old myocardial infarction; J44.9 Chronic obstructive pulmonary disease, unspecified; M19.90 Unspecified osteoarthritis, unspecified site; Z95.1 Presence of aortocoronary bypass graft; Z96.659 Presence of unspecified artificial knee joint; Z91.048 Other nonmedicinal substance allergy status; Z79.890 Hormone replacement therapy; Z85.828 Personal history of other malignant neoplasm of skin; Z79.899 Other long term (current) drug therapy; Z95.5 Presence of coronary angioplasty implant and graft; Z79.4 Long term (current) use of insulin; Z90.49 Acquired absence of other specified parts of digestive tract; Z98.890 Other specified postprocedural states; Z79.01 Long term (current) use of anticoagulants; Z88.8 Allergy status to other drugs, medicaments and biological substances; Z91.018 Allergy to other foods
CPT/HCPCS: 36415; 36600; 71045 ×2; 80053; 82803; 83605; 83880; 84484; 85025; 85610; 94660; 96365; 96366; 96368; 96375; 99284; 99285; J2060; J2270; J2305; J2405; J7030; 82947; 83735; 87040; 87426-QW; 97110-GP; 97161-GP; 97165-GO; 97530-GP; 99223; 99232; 99239; A9270-GY; J0696; J1815-GY

== ENCOUNTER 2024-11-01 10:36 | Inpatient (IN) | payer MEDICAID, MEDICARE ==
[2024-11-01] MEDS ORDERED: Ondansetron 4 MG Tab.DIS PO PRN (11:56)
[2024-11-01] MEDS ORDERED: Magnesium Hydroxide 400 MG/5 ML Susp 30 ML Cup PO PRN (11:56)
[2024-11-01] MEDS ORDERED: Sennosides/Docusate Sodium 50-8.6 MG Tab PO PRN (11:56)
[2024-11-01] MEDS: Insulin Lispro 100 Unit/ML 3 ML KwikPen SUBCUT SCH ×2 (13:45→13:47)
[2024-11-02] MEDS: Insulin Glargine,Human Rec. Analog 100 Units/ML 3 ML Pen SUBCUT SCH (08:14)
[2024-11-04 08:32] VITALS: BP 130/49; PULSE 56
[2024-11-04] MEDS: Insulin Lispro 100 Unit/ML 3 ML KwikPen SUBCUT SCH (11:55)
== END 2024-11-04 12:45 | disposition home health service (06) | DRG 948 ==
LOC: JP.MS 10:36
PROVIDERS: ADMIT Internal Medicine; ATTEND Internal Medicine
DX: R53.1 Weakness (principal); I50.32 Chronic diastolic (congestive) heart failure; H91.90 Unspecified hearing loss, unspecified ear; H54.7 Unspecified visual loss; I25.10 Atherosclerotic heart disease of native coronary artery without angina pectoris; Z66 Do not resuscitate; E78.00 Pure hypercholesterolemia, unspecified; J44.89 Other specified chronic obstructive pulmonary disease; M19.90 Unspecified osteoarthritis, unspecified site; E11.9 Type 2 diabetes mellitus without complications; Z96.659 Presence of unspecified artificial knee joint; I48.0 Paroxysmal atrial fibrillation; I11.0 Hypertensive heart disease with heart failure; E03.9 Hypothyroidism, unspecified; Z88.8 Allergy status to other drugs, medicaments and biological substances; Z91.048 Other nonmedicinal substance allergy status; Z91.018 Allergy to other foods; Z79.890 Hormone replacement therapy; Z85.828 Personal history of other malignant neoplasm of skin; Z90.89 Acquired absence of other organs; Z95.1 Presence of aortocoronary bypass graft; I25.2 Old myocardial infarction; Z95.5 Presence of coronary angioplasty implant and graft; Z79.899 Other long term (current) drug therapy; Z79.4 Long term (current) use of insulin
CPT/HCPCS: 97110-GP; 97129-GN; 97130-GN; 97162-GP; 97165-GO; 97530-GP; 99305; 99315; A9270-GY

== ENCOUNTER 2024-11-13 14:14 | Emergency (ER) | payer MEDICARE ==
[2024-11-13 16:30] VITALS: BP 110/54; PULSE 53
== END 2024-11-13 17:24 | disposition home or self-care (01) ==
LOC: JP.ED 14:14
DX: S50.811A Abrasion of right forearm, initial encounter (principal); S50.812A Abrasion of left forearm, initial encounter; I10 Essential (primary) hypertension; J44.89 Other specified chronic obstructive pulmonary disease; E78.00 Pure hypercholesterolemia, unspecified; I25.10 Atherosclerotic heart disease of native coronary artery without angina pectoris; I25.2 Old myocardial infarction; I48.91 Unspecified atrial fibrillation; E11.9 Type 2 diabetes mellitus without complications; Z95.1 Presence of aortocoronary bypass graft; Z87.891 Personal history of nicotine dependence; Z79.899 Other long term (current) drug therapy; Z79.01 Long term (current) use of anticoagulants; Z79.02 Long term (current) use of antithrombotics/antiplatelets; Z79.890 Hormone replacement therapy; Z88.8 Allergy status to other drugs, medicaments and biological substances; Z91.048 Other nonmedicinal substance allergy status; Z91.041 Radiographic dye allergy status; W01.0XXA Fall on same level from slipping, tripping and stumbling without subsequent striking against object, initial encounter
CPT/HCPCS: 70450; 70450-26; 99283; 99284

== ENCOUNTER 2025-01-25 19:16 | Emergency (ER) | payer MEDICARE, MEDICAID ==
[2025-01-25 20:00] LABS: BASOPHILS ABSOLUTE AUTO 0.06 K/uL (0.00-0.10); BASOPHILS PERCENT AUTO 1.2 % (0.1-1.3); EOSINOPHILS ABSOLUTE AUTO 0.34 K/uL (0.00-0.40); EOSINOPHILS PERCENT AUTO 6.6 % (0.0-5.4); IMMATURE GRAN ABSOLUTE AUTO 0.03 K/uL (0.00-0.23); IMMATURE GRAN PERCENT AUTO 0.6 % (0.0-0.7); LYMPHOCYTES ABSOLUTE AUTO 0.58 K/uL (0.8-3.3); LYMPHOCYTES PERCENT AUTO 11.2 % (11.4-47.7); MONOCYTES ABSOLUTE AUTO 0.64 K/uL (0.20-0.90); MONOCYTES PERCENT AUTO 12.4 % (3.3-12.6); NEUTROPHILS ABSOLUTE AUTO 3.52 K/uL (1.0-7.6); NEUTROPHILS PERCENT AUTO 68.0 % (40.0-78.1); PLATELET COUNT,PLT 187 K/uL (130-375); RED BLOOD CELL COUNT 4.09 M/uL (4.14-5.76); WHITE BLOOD CELL COUNT,WBC 5.2 K/uL (3.2-11.0)
[2025-01-25 20:17] VITALS: BP 163/71; PULSE 53
[2025-01-25 20:20] LABS: A/G RATIO 1.3 (1.2-2.2); ALANINE AMINOTRANSFERASE,ALT 31 U/L (12-78); ASPARTATE AMNIOTRANSFERASE,AST 19 U/L (15-37); BILIRUBIN TOTAL 0.7 mg/dL (0.2-1.0); BLOOD UREA NITROGEN,BUN 22 mg/dL (7-18); CARBON DIOXIDE,CO2 31 mmol/L (21-32); CHLORIDE,CL 100 mmol/L (100-108); CREATININE 1.0 mg/dL (0.8-1.3); EST CRCL DRUG DOSING (CG) 53.03 mL/min; ESTIMATED GFR 73 mL/min (>60); GLUCOSE RANDOM 131 mg/dL (74-106); POTASSIUM,K 4.3 mmol/L (3.6-5.2); PROTEIN TOTAL,TP 7.0 g/dL (6.4-8.2); SODIUM,NA 137 mmol/L (140-148)
== END 2025-01-25 21:00 | disposition home or self-care (01) ==
LOC: JP.ED 19:16
DX: E11.649 Type 2 diabetes mellitus with hypoglycemia without coma (principal); I25.10 Atherosclerotic heart disease of native coronary artery without angina pectoris; I48.91 Unspecified atrial fibrillation; I10 Essential (primary) hypertension; I25.2 Old myocardial infarction; E78.00 Pure hypercholesterolemia, unspecified; J44.9 Chronic obstructive pulmonary disease, unspecified; Z95.5 Presence of coronary angioplasty implant and graft; Z79.899 Other long term (current) drug therapy; Z79.4 Long term (current) use of insulin; Z79.02 Long term (current) use of antithrombotics/antiplatelets; Z88.8 Allergy status to other drugs, medicaments and biological substances; Z91.048 Other nonmedicinal substance allergy status; Z91.018 Allergy to other foods
CPT/HCPCS: 36415; 80053; 85025; 99285